=== PATIENT | female | born 1960 | race Caucasian/White ===

== ENCOUNTER → 2017-08-16 | Outpatient (CLI) | payer BC ==
--- NOTE | 2017-08-16 16:20 | CT ---
EXAMINATION TYPE: CT ChestAbdPelvis w con DATE OF EXAM: 08/16/2017 COMPARISON: NONE HISTORY: Abnormal weight loss, fatigue, and upper abdominal pain/back pain. CT DLP: 404.4. mGycm. Automated Exposure Control for Dose Reduction was Utilized. CONTRAST: CT scan of the thorax, abdomen and pelvis is performed with IV Contrast, patient injected with 100 mL of Omnipaque 300. FINDINGS: LUNGS: Mild paraseptal and centrilobular emphysematous changes are seen, most pronounced within the l lisa apices. Minimal right basilar subsegmental atelectasis is present. A 3 mm pulmonary nodule seen w ithin the right upper lobe peripherally on series 4 image 15. This is solid in nature. The lungs are grossly clear, there is no concerning parenchymal mass identified. There is no pleural effusion or pn eumothorax seen. The tracheobronchial tree is patent. MEDIASTINUM: There are no greater than 1 cm hilar or mediastinal lymph nodes. No pericardial effusi on is seen. LIVER/GB: Wedge-shaped geographic area of hypoattenuation is seen within segment IVb near the fissure for the falciform ligament. Most characteristically and most commonly this relates to focal fatty in filtration. Remainder the hepatic parenchyma enhances homogeneously. No evidence of cholelithiasis. PANCREAS: No significant abnormality is seen. SPLEEN: No significant abnormality is seen. ADRENALS: There is mild symmetric thickening adrenal glands without discrete nodularity. Adrenal glan ds maintain a normal adreniform shape and therefore this likely relates to adrenal gland hyperplasia. KIDNEYS: No significant abnormality is seen. BOWEL: There is dilation of the proximal third portion of the duodenum up to 3.2 cm on series 3 image 78. This narrows in caliber on series 3 image 75 with focal stenosis on series 3 image 70 at the microsoft office instructor ssing of the SMA within the mid third portion of the duodenum. The angle of takeoff of the SMA on cor onal series 8 image 51 measures 15 degrees. Compilation of findings suggest SMA syndrome. The remainder the bowel is nondilated. Circumferential rectal wall thickening may relate to incomplet e distention and is seen on series 3 images 111 and below. No proximal dilatation to suggest obstruct ing mass. No small bowel wall thickening. LYMPH NODES: No greater than 1cm abdominal or pelvic lymph nodes are appreciated. OSSEOUS STRUCTURES: No significant abnormality is seen. IMPRESSION: 1. Combination of findings as described above in the bowel section suggestive of SMA syndrome. 2. 3 mm right upper lobe pulmonary nodule. Follow up CT chest is recommended in 6-12 months for surve illance. 3. Circumferential rectal thickening that may relate to incomplete distention. Direct visualization p erformed for further evaluation.
== END | disposition home or self-care (01) ==
LOC: RADCTMAIN 14:03
PROVIDERS: ATTEND Nurse Practitioner Family
DX: K59.8 Other specified functional intestinal disorders (principal); R91.1 Solitary pulmonary nodule; K62.89 Other specified diseases of anus and rectum; R63.4 Abnormal weight loss; R53.83 Other fatigue
CPT/HCPCS: 71260; 74177; Q9967

== ENCOUNTER → 2017-08-20 | Outpatient (CLI) | payer BC ==
--- NOTE | 2017-08-20 18:47 | XR ---
EXAMINATION TYPE: XR ankle complete RT DATE OF EXAM: 08/20/2017 COMPARISON: NONE HISTORY: Pain TECHNIQUE: 3 views FINDINGS: Ankle mortise is anatomic. I see no fracture nor dislocation. Subtalar joint is normal. The re is some calcification at the tip of the fibula consistent with old ligamentous injury. IMPRESSION: Negative right ankle exam.
--- NOTE | 2017-08-20 18:48 | XR ---
EXAMINATION TYPE: XR foot complete RT DATE OF EXAM: 08/20/2017 COMPARISON: NONE HISTORY: Foot pain TECHNIQUE: 3 views FINDINGS: There is hallux valgus. There is some soft tissue swelling at the medial aspect of the firs t MP joint. There are no erosions. Metatarsals are intact. There is mild spurring at the first MP ling nt. IMPRESSION: No acute bony abnormality. Hallux valgus.
== END | disposition home or self-care (01) ==
LOC: RADXRMAIN 18:10
PROVIDERS: ATTEND Nurse Practitioner Adult Health
DX: M20.11 Hallux valgus (acquired), right foot (principal); M25.571 Pain in right ankle and joints of right foot

== ENCOUNTER 2017-09-02 10:25 | Day surgery (SDC) | payer BC ==
[2017-08-30 09:26] VITALS: BMI 17.2
[~2017-09-02 10:25] MED LIST: LACTATED RINGERS 1,000 ML IV SCH
[2017-09-02 11:39] VITALS: TEMP 98.2
[2017-09-02] MEDS ORDERED: PROPOFOL 10 MG/ML 20 ML VIAL IV ONE (12:13)
--- NOTE | 2017-09-02 12:44 | P.PCN ---
Date of Procedure: 09/02/17 Procedure(s) Performed: Procedure: Colonoscopy and biopsy. Preoperative diagnosis: Abnormal CT. Postoperative diagnosis: 1. Diverticulosis with no evidence of acute diverticulitis, strictures, polyps or cancer. 2. No evidence of inflammatory bowel disease, biopsies obtained from the terminal ileum and randomly from the colon. Preparation: HalfLytely prep. Sedation: Was provided by anesthesia. Brief clinical history: The patient is a 57-year-old female was been experiencing abdominal and back pain as well as altered bowel function. CT of the abdomen showed thickening in the rectum and changes suggestive of SMA syndrome. The patient had no prior colonoscopy and was accordingly referred for this evaluation. The patient also reported intermittent diarrhea 1-2 times per week. Procedure: With the patient on her left lateral decubitus position and after informed consent and adequate sedation, the perianal area was inspected and it did not show any fissures or fistulas. There were no masses felt on digital rectal examination. The Olympus CFQ 160L video colonoscope was then inserted in the rectum in the usual fashion and advanced to the cecum. I intubated the ileocecal valve and examined the terminal ileum. Terminal ileum and colon appeared healthy with no edema, erythema, friability, ulceration, exudation or spontaneous bleeding. No polyps or tumors were seen. Particular attention was made to the rectum and no abnormalities were noted to correspond to the CT findings. Multiple diverticular orifices were seen on the right side with no evidence of acute diverticulitis or strictures. I obtained biopsies from the terminal ileum and randomly from the colon, then I retroflexed the endoscope in the rectum before the endoscope was withdrawn. The patient tolerated the procedure well. Plan: The patient was reassured. Will await biopsy results and make further recommendations based on her course and biopsy results.
[2017-09-02 13:18] VITALS: BP 134/91; PULSE 75; RESP 18
== END 2017-09-02 13:28 | disposition home or self-care (01) ==
LOC: ORWHC2ENDO 10:25
DX: K57.30 Diverticulosis of large intestine without perforation or abscess without bleeding (principal); R93.3 Abnormal findings on diagnostic imaging of other parts of digestive tract; R63.4 Abnormal weight loss; Z68.1 Body mass index [BMI] 19.9 or less, adult; R53.83 Other fatigue
CPT/HCPCS: 88305; 45380; J2704

== ENCOUNTER 2017-10-28 18:51 | Emergency (ER) | payer BC ==
[2017-10-28 19:29] VITALS: BP 138/77; PULSE 78; RESP 16; TEMP 98
--- NOTE | 2017-10-28 19:44 | ED ---
General Adult HPI - General Chief complaint: Extremity Injury, Lower Stated complaint: fall/knee injury Time Seen by Provider: 10/28/17 19:38 Source: patient, RN notes reviewed Mode of arrival: wheelchair Limitations: no limitations - History of Present Illness Initial comments: Patient 57-year-old female presents to the emergency room today with a chief complaint of a injury to the left knee that occurred 5 days ago. Patient states that she tripped over a bedpost and was trying a flat on her knees and twisted. She states she's got some bruising to the back of the left knee. She is tender to the posterior and anterior aspect of the knee. She missed been able to ambulate but has to walk very carefully. She states she has pain with movement flexion and extension. Patient denies any other injuries or complaints. States she's not on any blood thinner. Patient denies any recent fever, chills, shortness of breath, chest pain, back pain, abdominal pain, nausea or vomiting, headaches or visual changes, or any other complaints. - Related Data Home Medications Medication Instructions Recorded Confirmed No Known Home Medications [No 08/30/17 09/02/17 Known Home Medications] Allergies Allergy/AdvReac Type Severity Reaction Status Date / Time No Known Allergies Allergy Verified 10/28/17 19:28 Review of Systems ROS Statement: Those systems with pertinent positive or pertinent negative responses have been documented in the HPI. ROS Other: All systems not noted in ROS Statement are negative. Past Medical History Past Medical History: Hearing Disorder / Deafness Additional Past Medical History / Comment(s): STATES HAVING SHORTNESS OF BREATH , WT LOSS OF 40 # OVER LAST 7 MONTHS, FATIGUE., STATES SHE HAS APPT AT [facility]. , PARTIALLY DEAF RIGHT EAR., STATES 3 LOOSE TEETH . History of Any Multi-Drug Resistant Organisms: None Reported Additional Past Surgical History / Comment(s): D & C Past Anesthesia/Blood Transfusion Reactions: No Reported Reaction Past Psychological History: No Psychological Hx Reported Smoking Status: Former smoker Past Alcohol Use History: Heavy Past Drug Use History: Marijuana - Past Family History Mother Family Medical History: Blood Disorder Additional Family Medical History / Comment(s): PROTEIN C - DEFICIENCY. Daughter(s) Family Medical History: Blood Disorder Additional Family Medical History / Comment(s): UNKNOWN NAME OF BLOOD DISORDER. General Exam - General Exam Comments Initial Comments: General: The patient is awake and alert, in no distress, and does not appear acutely ill. Neck: The neck is supple, there is no tenderness or JVD. Cardiovascular: There is a regular rate and rhythm. No murmur, rub or gallop is appreciated. Respiratory: Lungs are clear to auscultation, respirations are non-labored, breath sounds are equal. No wheezes, stridor, rales, or rhonchi. Musculoskeletal: Patient does have some bruising to the posterior and anterior aspects of the left knee. Minimal swelling. Tender to palpation both popliteal and superior and inferior anterior aspects of the left knee. Patient shows limited range of motion with flexion and extension due to the pain. Her sensations are intact. Pulses 2+. Neurological: A&O x 3. CN II-XII intact, There are no obvious motor or sensory deficits. Coordination appears grossly intact. Speech is normal. Skin: Skin is warm and dry and no rashes or lesions are noted. Psychiatric: Normal mood and affect. Limitations: no limitations Course Vital Signs 10/28/17 19:24 Temperature 98 F Pulse Rate 78 Respiratory 16 Rate Blood Pressure 138/77 O2 Sat by Pulse 98 Oximetry Medical Decision Making - Medical Decision Making X-ray reviewed does show patellar fracture. Results were discussed with the patient. Patient placed in knee immobilizer. She states she has crutches and a walker at home. She is advised nonweightbearing use in the was when up and moving around. Advised follow-up with orthopedics tomorrow. Advised to ice elevate the affected area. Advised return to emergency room for any other concerns. Disposition Clinical Impression: Patellar fracture Disposition: HOME SELF-CARE Condition: Good Instructions: Patellar Fracture (ED) Additional Instructions: Please use knee immobilizer up and moving around. Please use crutches with nonweightbearing. Please follow-up with orthopedics tomorrow. Please continue to ice elevate the affected area. Do not sleep with knee immobilizer on. Please return for any other concerns. Referrals: Jaci Watkins MD [Primary Care Provider] - 1-2 days Nagi Tariq MD [STAFF PHYSICIAN] - 1-2 days Time of Disposition: 20:17
--- NOTE | 2017-10-28 20:10 | XR ---
EXAMINATION TYPE: XR knee complete LT DATE OF EXAM: 10/28/2017 COMPARISON: NONE HISTORY: Knee pain TECHNIQUE: 3 views FINDINGS: There is a nondisplaced transverse fracture through the patella. There is small knee joint effusion. There is no dislocation. Joint spaces are fairly normal. IMPRESSION: Acute fracture of the patella. Joint effusion.
== END 2017-10-28 20:43 | disposition home or self-care (01) ==
LOC: EC 18:51
DX: S82.002A Unspecified fracture of left patella, initial encounter for closed fracture (principal); H91.90 Unspecified hearing loss, unspecified ear; Z87.891 Personal history of nicotine dependence; W01.0XXA Fall on same level from slipping, tripping and stumbling without subsequent striking against object, initial encounter; X50.1XXA Overexertion from prolonged static or awkward postures, initial encounter
CPT/HCPCS: 73562; 99283; L1830 ×2

== ENCOUNTER 2021-10-08 10:18 | Inpatient (IN) | payer BC, OTHER ==
[2021-10-08] MEDS ORDERED: HEPARIN SODIUM 1,000 UN/ML (10ML VL) ONE (10:57)
[2021-10-08] MEDS ORDERED: fentaNYL (PF) 50 MCG/ML 2 ML AMP ONE (10:57)
[2021-10-08] MEDS ORDERED: VERAPAMIL 2.5 MG/ML 2 ML AMP ONE (10:57)
[2021-10-08] MEDS ORDERED: LIDOCAINE 1% INJ 10MG/ML (20 ML MDV) ONE (10:57)
[2021-10-08] MEDS ORDERED: LIDOCAINE 1% INJ 10MG/ML (20 ML MDV) SQ ONE ×3 (11:13→11:17)
[2021-10-08] MEDS ORDERED: MIDAZOLAM 2 MG/2 ML VIAL IV ONE ×2 (11:13→11:14)
[2021-10-08] MEDS ORDERED: fentaNYL (PF) 50 MCG/ML 2 ML AMP IV ONE ×2 (11:13→11:14)
[2021-10-08] MEDS ORDERED: hydrALAZINE HCL 20 MG/ML 1 ML VIAL ONE (11:16)
[2021-10-08] MEDS ORDERED: hydrALAZINE HCL 20 MG/ML 1 ML VIAL IV ONE ×2 (11:16→11:17)
[2021-10-08] MEDS ORDERED: VERAPAMIL SYRINGE (5 MG/10 ML) IV ONE ×2 (11:19→11:20)
[2021-10-08] MEDS ORDERED: SODIUM CHLORIDE 0.9% 1,000 ML IV ONE ×2 (11:25)
[2021-10-08] MEDS ORDERED: HEPARIN SODIUM 1,000 UN/ML (10ML VL) IV ONE ×2 (11:30→11:33)
[2021-10-08] MEDS ORDERED: IOPAMIDOL-370 125ML BTL INJ ONE ×2 (11:43)
--- NOTE | 2021-10-08 12:09 | P.CARDCATH ---
Description of Procedure: PROCEDURES PERFORMED: Left heart catheterization, left ventriculogram, bilateral coronary angiography INDICATION: Non-STEMI HISTORY: Patient is a pleasant 61-year-old female who presented with chest pain and was found to have non-STEMI with biphasic T waves in the anterior septal leads concerning for Wellens sign with ongoing chest pain. She has had a cough for the past month and has had dyspnea on exertion however chest pain has only been the last week off and on and more recently constant for the last day. Given persistent chest pain and concern of obstructive disease patient was transferred to [facility] for left heart catheterization with possible PCI. CONSENT:I have discussed the risks, benefits and alternative therapies for the above-mentioned procedure and for both sedation/analgesia as well as necessary blood product administration, if indicated, as they pertain to this patient. The patient has indicated understanding and acceptance of the risks and procedures discussed. PROCEDURE: After the risks, benefits and alternatives of the above mentioned procedure explained in detail with the patient, informed consent was obtained. Patient was taken to the catheterization lab and prepped and draped in usual fashion. 1% lidocaine was used to anesthetize the right radial artery. Using ultrasound guidance the right radial artery was able to be cannulated however unable to pass a wire despite 3 attempts. Therefore given continued good radial pulse the ulnar area was anesthetized and a 6-Danish sheath was placed in the right ulnar artery using modified Seldinger technique. Left coronary angiography was performed with a 5-Danish JL 3.5 catheter and right coronary angiography was performed with a 5-Danish JR5 catheter in various views. A 5- Danish FR5 catheter was inserted into the left ventricle and pressure measurements were obtained. Left ventriculogram was performed in the BULLARD projection with power injection. The right ulnar sheath was removed and a TR band was placed with hemostasis achieved. The patient tolerated the procedure well. Patient was transported back to the post catheterization holding area in stable condition. Conscious Sedation: Patient was monitored under the direct supervision of vision of myself for conscious sedation using Versed and fentanyl for a total duration of [] minutes HEMODYNAMICS: Aorta: 92/70 LV: 88/2, LVEDP 10 SELECTIVE CORONARY ARTERIOGRAPHY: LEFT MAIN: The left main is a large caliber vessel which bifurcates into the LAD and circumflex. There is no significant stenosis. LEFT ANTERIOR DESCENDING CORONARY ARTERY: LAD is a large caliber vessel which wraps around to the apex. There is a proximal LAD 30% stenosis. LEFT CIRCUMFLEX CORONARY ARTERY: Left circumflex is a moderate caliber vessel without significant stenosis. RIGHT CORONARY ARTERY: The right coronary artery is a large caliber vessel which gives off a PDA and PLV branch and is the dominant vessel. There is a mid 30% stenosis and otherwise no significant disease. FINAL IMPRESSION: 1. Mild CAD as described above 2. Normal left sided filling pressures 3. Normal ejection fraction 55% with predominantly mid inferior hypokinesis and very mild mid anterior hypokinesis. Mild wall motion abnormalities may represent Takotsubo's cardiomyopathy versus mild myocarditis however may be better evaluated on echo. PLAN: 1. Aggressive risk factor modification per most recent ACC/AHA guidelines. 2. Continue beta akua and check 2-D echo.
[2021-10-08] MEDS ORDERED: RX INFO: IV CONTRAST WAS GIVEN 1 EACH MISC MISCELLANE PRN (12:10)
[2021-10-08] MEDS ORDERED: SODIUM CHLORIDE 0.9% 500 ML 500 ML IV ONE (14:49)
[2021-10-08] MEDS: METOPROLOL SUCCINATE (ER) 25 MG TAB.ER.24H PO SCH (15:46)
--- NOTE | 2021-10-08 19:04 | P.HPIM ---
History of Present Illness H&P Date: 10/08/21 Chief Complaint: Chest pain/NSTEMI 61-year-old female who presented with chest pain and was found to have non-STEMI with biphasic T waves in the anterior septal leads concerning for Wellens sign with ongoing chest pain. She has had a cough for the past month and has had dys pnea on exertion however chest pain has only been the last week off and on and more recently constant for the last day. Given persistent chest pain and concern of obstructive disease patient was transferred to [facility] for left heart catheterization with possible PCI. Patient is transferred to our facility for cardiac catheterization and further intervention Review of Systems Inserted review of systems Past Medical History Past Medical History: Hearing Disorder / Deafness Additional Past Medical History / Comment(s): STATES WT LOSS OF 40 # OVER LAST 7 MONTHS, POOR APPETITE , FATIGUE., NODULE ON LUNG. , PARTIALLY DEAF RIGHT EAR., STATES 3 LOOSE TEETH ., STATES HX OF FALL & INJURED LEFT KNEE AND RIGHT WRIST (10/2017)-STATES LIMPING, & CANNOT USE RIGHT WRIST. History of Any Multi-Drug Resistant Organisms: None Reported Additional Past Surgical History / Comment(s): D & C Past Anesthesia/Blood Transfusion Reactions: No Reported Reaction Past Psychological History: Anxiety, Depression Additional Psychological History / Comment(s): STATES RECENT ANXIETY & DEPRESSION D/T HEALTH PROBLEMS. Past Alcohol Use History: Heavy Additional Past Alcohol Use History / Comment(s): STATES HX OF HEAVY ALCOHOL USE- QUIT [id number]. STARTED SMOKING AGE 11, QUIT AGE 41., SMOKED 1 PPD. Past Drug Use History: Marijuana Additional Drug Use History / Comment(s): STATES OCCASIONAL MARIJUANA USE TO INCREASE APPETITE. - Past Family History Mother Family Medical History: Blood Disorder Additional Family Medical History / Comment(s): PROTEIN C - DEFICIENCY. Daughter(s) Family Medical History: Blood Disorder Additional Family Medical History / Comment(s): UNKNOWN NAME OF BLOOD DISORDER. Medications and Allergies Home Medications Medication Instructions Recorded Confirmed Type No Known Home Medications 10/08/21 10/08/21 History Allergies Allergy/AdvReac Type Severity Reaction Status Date / Time No Known Allergies Allergy Verified 10/08/21 14:44 Physical Exam Vitals: Vital Signs Pulse Resp BP Pulse Ox 10/08/21 15:41 81/53 10/08/21 15:30 75/51 10/08/21 14:40 81/49 10/08/21 14:37 84 16 76/45 98 10/08/21 12:48 98 116/57 97 10/08/21 12:37 88 18 84/55 96 10/08/21 12:25 83 18 156/69 100 Intake and Output 10/08/21 10/08/21 10/08/21 06:59 14:59 22:59 Intake Total 600 Balance 600 Intake: IV 600 Other: Weight 41 kg - Constitutional General appearance: Present: average body habitus, cooperative, no acute distress - EENT Eyes: Present: anicteric sclerae, EOMI, PERRLA, normal appearance ENT: Present: hearing grossly normal, normal oropharynx Ears: bilateral: normal - Neck Neck: Present: normal ROM. Absent: lymphadenopathy, rigidity, thyromegaly Carotids: negative: bruit present Thyroid: bilateral: normal size, negative: enlarged, nodule - Respiratory Respiratory: bilateral: CTA, negative: rales, rhonchi, wheezing - Cardiovascular Rhythm: regular Heart sounds: normal: S1, S2 Abnormal Heart Sounds: Absent: systolic murmur, diastolic murmur - Gastrointestinal General gastrointestinal: Present: normal bowel sounds, soft. Absent: distended, organomegaly, tenderness - Genitourinary Genitourinary Comment(s): deferred - Integumentary Integumentary: Present: normal turgor. Absent: jaundiced, rash, ulcer - Neurologic Neurologic: Present: CNII-XII intact. Absent: focal deficits - Musculoskeletal Musculoskeletal: Present: gait normal, strength equal bilaterally - Psychiatric Psychiatric: Present: A&O x's 3, appropriate affect, intact judgment & insight Assessment and Plan Assessment: 1. Chest pain/NSTEMI - Patient is currently on IV heparin; cardiology to evaluate for left heart catheterization - Patient remains on aspirin, Lipitor 40 mg daily at bedtime and metoprolol 12.5 mg daily - 2-D echo is ordered and pending 2. Hearing disorder/deafness; at baseline 3. Hypotension; iatrogenic; patient not on an antihypertensive therapy at home; has been placed on metoprolol; patient remains asymptomatic; we'll plan to discontinue metoprolol if patient reports of any dizziness or lightheadedness DVT prophylaxis; SCDs CODE STATUS; full code
[2021-10-08] MEDS: ATORVASTATIN 40 MG TAB PO SCH (21:09)
[2021-10-09 00:42] LABS: Glucose,Whole Blood 117 mg/dL (75-99)
[2021-10-09] MEDS: NITROGLYCERIN SL TABS 0.4 MG TAB SUBLINGUAL ONE ×2 (00:55→01:00)
[2021-10-09] MEDS ORDERED: MORPHINE SULFATE 4 MG/ML SYRINGE IVP PRN (01:01)
[2021-10-09] MEDS ORDERED: ONDANSETRON 4 MG/2 ML VIAL IVP PRN (01:02)
[2021-10-09] MEDS ORDERED: hydrALAZINE HCL 20 MG/ML 1 ML VIAL IVP PRN (01:03)
[2021-10-09] MEDS ORDERED: MORPHINE SULFATE 4 MG/ML SYRINGE ONE (01:03)
[2021-10-09 01:41] LABS: HCT 40.1 % (34.0-46.0); HGB 13.3 gm/dL (11.4-16.0); MCH 34.5 pg (25.0-35.0); MCHC 33.2 g/dL (31.0-37.0); MCV 103.9 fL (80.0-100.0); Macrocytosis Slight; Mean Platelet Volume 7.7; Platelet Count 295 k/uL (150-450); RBC 3.86 m/uL (3.80-5.40); RDW 14.9 % (11.5-15.5); WBC 9.9 k/uL (3.8-10.6)
[2021-10-09 02:04] LABS: African American GFR (CKD) >90 (>60 ml/min/1.73 sqM); Anion Gap 6 mmol/L; Blood Urea Nitrogen 11 mg/dL (7-17); Calcium 8.3 mg/dL (8.4-10.2); Carbon Dioxide 19 mmol/L (22-30); Chloride 104 mmol/L (98-107); Glucose 124 mg/dL (74-99); Magnesium 1.5 mg/dL (1.6-2.3); Non-African American GFR(CKD) >90 (>60 ml/min/1.73 sqM); Potassium 3.6 mmol/L (3.5-5.1); Sodium 129 mmol/L (137-145)
[2021-10-09] MEDS ORDERED: LORazepam 2 MG/ML INJ IV PRN ×3 (02:32)
[2021-10-09] MEDS ORDERED: Magnesium Replacement Protocol 1 EACH MISC MISCELLANE PRN (02:33)
[2021-10-09] MEDS ORDERED: Potassium Replacement Protocol 1 EACH MISC MISCELLANE PRN (02:33)
[2021-10-09] MEDS: MAGNESIUM SULFATE-D5W PMX 1 GM in DEXTROSE/WATER 1 100ML.BAG IVPB SCH ×2 (02:43→03:55)
[2021-10-09] MEDS ORDERED: THIAMINE 100 MG/ML 2 ML VIAL IM ONE (02:45)
[2021-10-09] MEDS ORDERED: POTASSIUM CHLORIDE ER 20 MEQ TAB.ER PO SCH (03:00)
[2021-10-09] MEDS ORDERED: amLODIPine 10 MG TAB PO SCH (09:00)
[2021-10-09] MEDS: ASPIRIN 81 MG PO SCH (09:02)
[2021-10-09] MEDS: METOPROLOL SUCCINATE (ER) 25 MG TAB.ER.24H PO SCH (09:02)
[2021-10-09] MEDS: MULTIVITAMINS, THERA 1 EACH TAB PO SCH (09:02)
[2021-10-09] MEDS ORDERED: SODIUM CHLORIDE 0.9% 500 ML 250 ML IV ONE (09:45)
[2021-10-09 09:49] LABS: HCT 42.2 % (34.0-46.0); HGB 13.7 gm/dL (11.4-16.0); MCH 34.9 pg (25.0-35.0); MCHC 32.4 g/dL (31.0-37.0); MCV 107.6 fL (80.0-100.0); Macrocytosis Marked; Mean Platelet Volume 8.2; Platelet Count 251 k/uL (150-450); RBC 3.92 m/uL (3.80-5.40); RDW 15.1 % (11.5-15.5); WBC 8.3 k/uL (3.8-10.6)
--- NOTE | 2021-10-09 12:27 | XR ---
EXAMINATION TYPE: XR chest 2V DATE OF EXAM: 10/09/2021 COMPARISON: NONE TECHNIQUE: PA and lateral views submitted. HISTORY: Hypoxia FINDINGS: Hyperinflation with by lateral small pleural effusions. No overt failure. Heart size normal. No pneum othorax. Diffuse osteopenia and arthropathy of the shoulders and degenerative changes spine. IMPRESSION: 1. COPD with small bilateral pleural effusions.
[2021-10-09] MEDS: SODIUM CHLORIDE 0.9% 1,000 ML IV SCH (12:59)
--- NOTE | 2021-10-09 15:01 | P.PN ---
Subjective Progress Note Date: 10/09/21 61-year-old female who presented with chest pain and was found to have non-STEMI with biphasic T waves in the anterior septal leads concerning for Wellens sign with ongoing chest pain. She has had a cough for the past month and has had dyspnea on exertion however chest pain has only been the last week off and on and more recently constant for the last day. Given persistent chest pain and concern of obstructive disease patient was transferred to [facility] [place] for left heart catheterization with possible PCI. Patient is transferred to our facility for cardiac catheterization and further intervention 10/09/2021 Patient evaluated today status post catheterization yesterday. Patient was experiencing some numbness to her right hand as well as she states her nailbeds were white. She does have a positive plus radial pulse. There is extensive bruising of the right forearm. Right radial TR band was reapplied an pt states numbness is improved and there is <3 sec cap refill. Cardiac catheterization revealed mild coronary artery disease with no stenting. There was question for takutsubo cardiomyopathy vs mild myocarditis echocardiogram is still pending. Mag 1.5, was replaced, sodium level 129. Blood pressures in the low side at 85/53, she did receive a liter bolus earlier morning and she does state that she is mildly dizzy when standing. Patient has not seen primary care provider in 10 years. She was a one pack per day smoker from age of [age], currently smokes marijuana out of a pipe 3 times per day. State she's had increasing shortness of breath at home. Chest x-ray today shows COPD with small bilateral pleural effusions. There was mention in history about nodule on lung, patient denies knowing about this, states that she has had gradual weight loss over the past 10 years, states at one point when it started she was worked up for parasites at [facility] but was a negative work up. Reports decreased appetite at home as well. Review of Systems Constitutional: Denied any fatigue denied any fever. Cardio vascular: denied any chest pain, palpitations Gastrointestinal: denied any nausea, vomiting, diarrhea, reports decreased appetite Pulmonary: Denies cough, reports shortness of breath at rest and with exertion Neurologic denied any new focal deficits All inpatient medications were reviewed and appropriate changes in these medications as dictated in the interval history and assessment and plan. PHYSICAL EXAMINATION: GENERAL: The patient is alert and oriented x3, not in any acute distress. Well developed, well nourished. HEENT: Pupils are round and equally reacting to light. EOMI. No scleral icterus. No conjunctival pallor. Normocephalic, atraumatic. No pharyngeal erythema. No thyromegaly. CARDIOVASCULAR: S1 and S2 present. No murmurs, rubs, or gallops. PULMONARY: Chest is clear to auscultation, no wheezing or crackles. ABDOMEN: Soft, nontender, nondistended, normoactive bowel sounds. No palpable organomegaly. MUSCULOSKELETAL: No joint swelling or deformity. EXTREMITIES: No cyanosis, clubbing, or pedal edema. NEUROLOGICAL: Gross neurological examination did not reveal any focal deficits. SKIN: No rashes. Assessment and plan Assessment Chest pain/non-ST elevation myocardial infarction, catheterization reveals mild coronary artery disease recommended for medical management Hypotension, started on new blood pressure medications with poor oral intake, received a 1 liter bolus today, monitor closely Hyponatremia due to poor oral intake, IV fluids started and will repeat level tomorrow Hypomagnesemia probably due to poor oral intake, repeat tomorrow Probably COPD with a 30 pack year history, complaining of shortness of breath at home with history of smoking and requiring oxygen support Hearing disorder/deafness at baseline Poor dentition Prior history of daily tobacco use Current daily mairjuana use History of chronic alcohol abuse, drinks 1 vodka every other day currently. History of weight loss GI Prophylaxis DVT Prophylaxis Full Code Plan Continue IV fluids Monitor blood pressure Orthostatic blood pressures Qshift Echo pending Start symbicort wean oxygen as tolerated Repeat labs in AM Consult international freight forwarder The impression and plan of care has been dictated by Zelda Santacruz, Nurse Practitioner as directed. Dr. Luzmaria MD I have performed a history and physical examination and medical decision making of this patient, discussed the same with the dictator, and agree with the dictators assessment and plan as written, documented as a scribe. Based on total visit time, I have performed more than 50% of this visit. Objective - Vital Signs Vital signs: Vital Signs Temp 98.4 F 10/09/21 08:00 Pulse 98 10/09/21 08:00 Resp 16 10/09/21 08:00 BP 95/50 10/09/21 10:00 Pulse Ox 100 10/09/21 08:00 Intake & Output 10/08/21 10/09/2122 18:59 06:59 18:59 Intake Total 600 320 368 Output Total 200 Balance 400 320 368 Weight 41.012 kg Intake: IV 600 Intake, IV Titration 200 250 Amount Magnesium Sulfate-D5w Pmx 200 1 gm In Dextrose/Water 1 100ml.bag @ 100 mls/hr IVPB Q1H [facility] Rx#: [id number] Sodium Chloride 0.9% 1, 250 000 ml @ 0 mls/hr IV .STK -MED ONE Rx#:[id number] Oral 120 118 Output: Urine 200 Other: # Voids 3 - Labs CBC & Chem 7: 10/09/21 07:13 10/09/21 01:20 Labs: Abnormal Lab Results - Last 24 Hours (Table) 10/09/21 10/09/21 10/09/21 Range/Units 00:41 01:20 01:20 MCV 103.9 H (80.0-100.0) fL Macrocytosis Sodium (137-145) mmol/L Carbon Dioxide (22-30) mmol/L Glucose (74-99) mg/dL POC Glucose (mg/dL) 117 H (75-99) mg/dL Calcium (8.4-10.2) mg/dL Magnesium (1.6-2.3) mg/dL Troponin I 0.193 H* (0.000-0.034) ng/mL 10/09/21 10/09/21 10/09/21 Range/Units 01:20 04:08 07:13 MCV (80.0-100.0) fL Macrocytosis Sodium 129 L (137-145) mmol/L Carbon Dioxide 19 L (22-30) mmol/L Glucose 124 H (74-99) mg/dL POC Glucose (mg/dL) (75-99) mg/dL Calcium 8.3 L (8.4-10.2) mg/dL Magnesium 1.5 L (1.6-2.3) mg/dL Troponin I 0.179 H* 0.145 H* (0.000-0.034) ng/mL 10/09/21 Range/Units 07:13 MCV 107.6 H (80.0-100.0) fL Macrocytosis Marked A Sodium (137-145) mmol/L Carbon Dioxide (22-30) mmol/L Glucose (74-99) mg/dL POC Glucose (mg/dL) (75-99) mg/dL Calcium (8.4-10.2) mg/dL Magnesium (1.6-2.3) mg/dL Troponin I (0.000-0.034) ng/mL Assessment and Plan Time with Patient: Greater than 30
--- NOTE | 2021-10-09 15:09 | P.PN ---
Subjective Progress Note Date: 10/09/21 HISTORY OF PRESENT ILLNESS: Patient is s/p cardiac cath with Dr. Xiong revealing mild CAD. Patient examined this morning at the bedside. Patient denies chest pain or pressure. Denies SOB. Patient does have a hematoma noted to right arm. TR band has been reapplied. Blood pressure on the lower side this morning with a systolic in the 80-90s. PHYSICAL EXAM: VITAL SIGNS: Reviewed. GENERAL: Well-developed in no acute distress. NECK: Supple. No JVD or thyromegaly LUNGS: Respirations even and unlabored. Lungs essentially clear to auscultation bilaterally. HEART: Regular rate and rhythm. S1 and S2 heard. EXTREMITIES: Normal range of motion. No clubbing or cyanosis. Peripheral pulses intact. No lower extremity edema ASSESSMENT: Chest pain Non-STEMI, s/p cardiac cath revealing mild CAD Hypotension PLAN: Give 250cc bolus followed by IVF at 50cc/hr Hold Norvasc this morning Continue to monitor BP Obtain 2D echo Further recommendations pending patient course Nurse practitioner note has been reviewed by physician. Signing provider agrees with the documented findings, assessment, and plan of care. Objective - Vital Signs Vital signs: Vital Signs Temp 98.4 F 10/09/21 08:00 Pulse 81 10/09/21 14:00 Resp 16 10/09/21 14:00 BP 94/53 10/09/21 12:00 Pulse Ox 99 10/09/21 12:00 Intake & Output 10/08/21 10/09/21 10/09/21 18:59 06:59 18:59 Intake Total 600 320 368 Output Total 200 Balance 400 320 368 Weight 41.012 kg Intake: IV 600 Intake, IV Titration 200 250 Amount Magnesium Sulfate-D5w Pmx 200 1 gm In Dextrose/Water 1 100ml.bag @ 100 mls/hr IVPB Q1H [facility] Rx#: [id number] Sodium Chloride 0.9% 1, 250 000 ml @ 0 mls/hr IV .STK -MED ONE Rx#:[id number] Oral 120 118 Output: Urine 200 Other: # Voids 3 - Labs CBC & Chem 7: 10/09/21 07:13 10/09/21 01:20 Labs: Abnormal Lab Results - Last 24 Hours (Table) 10/09/21 10/09/21 10/09/21 Range/Units 00:41 01:20 01:20 MCV 103.9 H (80.0-100.0) fL Macrocytosis Sodium (137-145) mmol/L Carbon Dioxide (22-30) mmol/L Glucose (74-99) mg/dL POC Glucose (mg/dL) 117 H (75-99) mg/dL Calcium (8.4-10.2) mg/dL Magnesium (1.6-2.3) mg/dL Troponin I 0.193 H* (0.000-0.034) ng/mL 10/09/21 10/09/21 10/09/21 Range/Units 01:20 04:08 07:13 MCV (80.0-100.0) fL Macrocytosis Sodium 129 L (137-145) mmol/L Carbon Dioxide 19 L (22-30) mmol/L Glucose 124 H (74-99) mg/dL POC Glucose (mg/dL) (75-99) mg/dL Calcium 8.3 L (8.4-10.2) mg/dL Magnesium 1.5 L (1.6-2.3) mg/dL Troponin I 0.179 H* 0.145 H* (0.000-0.034) ng/mL 10/09/21 Range/Units 07:13 MCV 107.6 H (80.0-100.0) fL Macrocytosis Marked A Sodium (137-145) mmol/L Carbon Dioxide (22-30) mmol/L Glucose (74-99) mg/dL POC Glucose (mg/dL) (75-99) mg/dL Calcium (8.4-10.2) mg/dL Magnesium (1.6-2.3) mg/dL Troponin I (0.000-0.034) ng/mL
[2021-10-09 15:10] VITALS: BMI 15.5
[2021-10-09] MEDS: THIAMINE 100 MG TAB PO SCH (17:36)
[2021-10-09] MEDS: ATORVASTATIN 40 MG TAB PO SCH (20:16)
[2021-10-09] MEDS: SYMBICORT 80-4.5 MCG INHALER INHALATION SCH (21:27)
[2021-10-10] MEDS: SODIUM CHLORIDE 0.9% 1,000 ML IV SCH (05:52)
[2021-10-10] MEDS: THIAMINE 100 MG TAB PO SCH (06:39)
[2021-10-10] MEDS: METOPROLOL SUCCINATE (ER) 25 MG TAB.ER.24H PO SCH (08:29)
[2021-10-10] MEDS: ASPIRIN 81 MG PO SCH (08:29)
[2021-10-10] MEDS: MULTIVITAMINS, THERA 1 EACH TAB PO SCH (08:29)
[2021-10-10] MEDS: SYMBICORT 80-4.5 MCG INHALER INHALATION SCH (08:46)
[2021-10-10 09:04] LABS: African American GFR (CKD) >90 (>60 ml/min/1.73 sqM); Anion Gap 1 mmol/L; Blood Urea Nitrogen 4 mg/dL (7-17); Calcium 8.2 mg/dL (8.4-10.2); Carbon Dioxide 28 mmol/L (22-30); Chloride 105 mmol/L (98-107); Glucose 109 mg/dL (74-99); Non-African American GFR(CKD) >90 (>60 ml/min/1.73 sqM); Potassium 4.2 mmol/L (3.5-5.1); Sodium 134 mmol/L (137-145)
[2021-10-10 09:08] VITALS: RESP 20
--- NOTE | 2021-10-10 09:23 | P.PN ---
Subjective Progress Note Date: 10/10/21 PROGRESS NOTE The patient is a 61-year-old female who presented with symptoms of chest discomfort and troponin elevation. She underwent cardiac catheterization that showed no evidence of obstructive disease. She is feeling better today. She has some abdominal discomfort and nausea that are improving. Her blood pressure is under better control. Her echocardiogram showed an ejection fraction of 45-50% with apical septal hypokinesis. Her findings are suggestive of Takotsubo syndrome. She has no evidence of arrhythmia. She continues to be on Norvasc 10 mg daily, aspirin once a day, metoprolol succinate 12-1/2 mg daily, Lipitor 40 mg daily PHYSICAL EXAMINATION: Blood pressure 107/60 heart rate 76 LUNGS: Clear to auscultation HEART: Regular rate and rhythm, S1, S2. No S3. systolic murmur at the base ABDOMEN: Soft, nontender, no organomegaly EXTREMETIES: No edema, ecchymosis on the right arm with good radial pulse LAB: BUN 4, creatinine 0.58 IMPRESSION: 1. Non-STEMI with Tokotsubo syndrome 2. History of hypertension 3. Mild CAD 4. Abdominal pain PLAN: 1. Add JARVIS inhibitor 2. Increase physical activity 3. If stable probable discharged home today and follow-up as an outpatient with Dr. Xiong. Objective - Vital Signs Vital signs: Vital Signs Temp 97.9 F 10/10/21 08:00 Pulse 76 10/10/21 08:00 Resp 20 10/10/21 08:00 BP 114/73 10/10/21 08:00 Pulse Ox 100 10/10/21 08:00 Intake & Output 10/09/21 10/10/21 10/10/21 18:59 06:59 18:59 Intake Total 868 690 Balance 868 690 Weight 41.012 kg Intake: Intake, IV Titration 750 450 Amount Sodium Chloride 0.9% 1, 250 000 ml @ 0 mls/hr IV .STK -[facility] ONE Rx#:[id number] Sodium Chloride 0.9% 1, 500 000 ml @ 50 mls/hr IV . Q20H [facility] Rx#:[id number] Sodium Chloride 0.9% 500 450 ml 250 ml @ 999 mls/hr IV .Q16M ONE Rx#:[id number] Oral 118 240 Other: # Voids 3 - Labs CBC & Chem 7: 10/09/21 07:13 10/10/21 08:22 Labs: Abnormal Lab Results - Last 24 Hours (Table) 10/09/21 10/10/21 Range/Units 07:13 08:22 MCV 107.6 H (80.0-100.0) fL Macrocytosis Marked A Sodium 134 L (137-145) mmol/L BUN 4 L (7-17) mg/dL Glucose 109 H (74-99) mg/dL Calcium 8.2 L (8.4-10.2) mg/dL
[2021-10-10 11:55] VITALS: TEMP 98.1
--- NOTE | 2021-10-10 13:01 | ECHOF ---
Referral Reason:mi MEASUREMENTS -------- HEIGHT: 162.6 cm WEIGHT: 40.8 kg BP: 98/50 RVIDd: 1.9 cm (< 3.3) IVSd: 0.8 cm (0.6 - 1.1) LVIDd: 3.1 cm (3.9 - 5.3) LVPWd: 1.0 cm (0.6 - 1.1) IVSs: 1.4 cm LVIDs: 2.1 cm LVPWs: 1.3 cm LA Diam: 2.8 cm (2.7 - 3.8) Ao Diam: 2.7 cm (2.0 - 3.7) AV Cusp: 1.7 cm (1.5 - 2.6) MV EXCURSION: 17.310 mm (> 18.000) MV EF SLOPE: 118 mm/s (70 - 150) EPSS: 0.2 cm MV E Reyes: 0.67 m/s MV DecT: 193 ms MV A Reyes: 0.84 m/s MV E/A Ratio: 0.80 FINDINGS -------- Sinus rhythm. This was a technically good study. The left ventricular size is normal. Left ventricular wall thickness is normal. Overall left vent ricular systolic function is mildly impaired with, an EF between 45 - 50 %. Apical anterior LV wall motion is hypokinetic. Apical septum LV wall motion is hypokinetic. The right ventricle is normal in size. The left atrium is normal in size. The right atrium is normal in size. Interatrial and interventricular septum intact. The aortic valve is trileaflet and appears structurally normal. The mitral valve is normal. The tricuspid valve appears structurally normal. Unable to estimate RVSP due to inadequate TR jet s pectral doppler profile. The pulmonic valve is normal. The aortic root size is normal. Normal inferior vena cava with normal inspiratory collapse consistent with estimated right atrial pre ssure of 5 mmHg. There is no pericardial effusion. CONCLUSIONS -------- 1. The left ventricular size is normal. 2. Left ventricular wall thickness is normal. 3. Overall left ventricular systolic function is mildly impaired with, an EF between 45 - 50 %. 4. Apical anterior LV wall motion is hypokinetic. 5. Apical septum LV wall motion is hypokinetic. 6. There is no pericardial effusion. KILN REMOVER: Jacqueline Diaz RDCS
[2021-10-10] MEDS ORDERED: SODIUM CHLORIDE 0.65% NASAL SPRAY 44 ML BTL NASAL PRN (13:53)
[2021-10-10 13:57] VITALS: BP 122/63; PULSE 75
[2021-10-11] MEDS ORDERED: METOPROLOL SUCCINATE (ER) 25 MG TAB.ER.24H PO SCH (09:00)
--- NOTE | 2021-10-11 22:02 | P.DS ---
Providers Date of admission: 10/08/21 10:24 Attending physician: Chelsea Lobato MD [facility] Course: Final Diagnosis Chest pain/non-ST elevation myocardial infarction, catheterization reveals mild coronary artery disease recommended for medical management Hypotension, started on new blood pressure medications with poor oral intake, still on the softer side, cardiology added lisinopril today Hyponatremia due to poor oral intake, IV fluids started, sodium improved today Hypomagnesemia probably due to poor oral intake, improved with supplementation Probably COPD with a 30 pack year history, complaining of shortness of breath at home with history of smoking and requiring oxygen support Hearing disorder/deafness at baseline Poor dentition Prior history of daily tobacco use Current daily mairjuana use History of chronic alcohol abuse, drinks 1 vodka every other day currently. History of weight loss Discharge Disposition Patient stable for discharge to follow up with cardiology. Needs to establish care with primary provider, and follow up with a active directory specialist. Hospital Course 61-year-old female who presented with chest pain and was found to have non-STEMI with biphasic T waves in the anterior septal leads concerning for Wellens sign with ongoing chest pain. She has had a cough for the past month and has had dyspnea on exertion however chest pain has only been the last week off and on and more recently constant for the last day. Given persistent chest pain and concern of obstructive disease patient was transferred to [facility] for left heart catheterization with possible PCI. Cardiac catheterization revealed mild coronary artery disease with no stenting. There was question for takutsubo cardiomyopathy vs mild myocarditis. Echocardiogram shows an EF of 45 to 50%, with LV wall motion hypokinetic, apical septum is hypokinetic, no pericardial effusion. Patient has not seen primary care provider in 10 years. She was a one pack per day smoker from age of [age], currently smokes marijuana out of a pipe 3 times per day. Also reports history of chronic alcohol use now drinks 1 mixed vodka drink every other day. State she's had increasing shortness of breath at home. Chest x-ray shows COPD with small bilateral pleural effusions. There was mention in history about nodule on lung, patient denies knowing about this, states that she has had gradual weight loss over the past 10 years, states at one point when it started she was worked up for parasites at [facility] but was a negative work up. Reports decreased appetite at home as well. Patient was evaluated by rn chemical dependency who recommended ensure plus three times a day. Labs on admission show sodium 129, WBC 9.9, glucose in the 100s, Magnesium 1.5, troponin elevation at 0.193, 0.179, 0.145. 10/10/2021 Patient evaluated today resting bed. Currently denies any chest pain, chest pressure or palpitations. States shortness of breath has improved. Counseled on smoking cessation. Orthostatics yesterday were negative. Patient had a home oxygen evaluation prior to discharge and passed with 99% on room air, discharge on symbicort inhaler and will need to follow up with pulmonary outpatient. Cardiology possibly clearing patient for discharge later on today. Patient did have some leaking from the right radial puncture site yesteday in which her hand was going numb and had the TR band put back on, today right wrist ecchymotic however soft now at the radial site with positive pulse. No further complaints of hand numbness. She also experience some hypotension yesterday and got a 1 liter fluid bolus, she was able to tolerate oral intake later on in the day and blood pressures improved. Vital signs today blood pressure 122/63 with negative orthostatics again today. Lungs are clear, S1 S2 auscultated focal neurological exam is negative. Discharge medications include aspirin, atorvastatin, toprol, lisinopril. Please see medication reconciliation for a list of current medications. Thank you for allowing us to participate in the care of this patient. The impression and plan of care has been dictated by Zelda Santacruz, Nurse Practitioner as directed. Dr. Luzmaria MD I have performed a history and physical examination and medical decision making of this patient, discussed the same with the dictator, and agree with the dictators assessment and plan as written, documented as a scribe. Based on total visit time, I have performed more than 50% of this visit. Patient Condition at Discharge: Fair Plan - Discharge Summary Discharge Rx Participant: No New Discharge Prescriptions: New Atorvastatin [Lipitor] 40 mg PO HS #30 tab Albuterol Inhaler [Ventolin Hfa Inhaler] 1 puff INHALATION RT-QID PRN #8 gm PRN Reason: Shortness Of Breath Thiamine [Vitamin B-1] 100 mg PO BID-W/MEALS tab Aspirin 81 mg PO DAILY #30 tab Multivitamins, Thera [Multivitamin (formulary)] 1 each PO DAILY tab Famotidine [Pepcid] 20 mg PO DAILY #30 tablet Budesonide/Formoterol Fumarate [Symbicort 80-4.5 Mcg Inhaler] 1 puff INHALATION BID #1 each Metoprolol Succinate (ER) [Toprol XL] 25 mg PO DAILY #30 tab lisinopriL [Zestril] 2.5 mg PO DAILY #30 tab Discharge Medication List Albuterol Inhaler [Ventolin Hfa Inhaler] 1 puff INHALATION RT-QID PRN #8 gm 10/10/21 [Rx] Aspirin 81 mg PO DAILY #30 tab 10/10/21 [Rx] Atorvastatin [Lipitor] 40 mg PO HS #30 tab 10/10/21 [Rx] Budesonide/Formoterol Fumarate [Symbicort 80-4.5 Mcg Inhaler] 1 puff INHALATION BID #1 each 10/10/21 [Rx] Famotidine [Pepcid] 20 mg PO DAILY #30 tablet 10/10/21 [Rx] Metoprolol Succinate (ER) [Toprol XL] 25 mg PO DAILY #30 tab 10/10/21 [Rx] Multivitamins, Thera [Multivitamin (formulary)] 1 each PO DAILY tab 10/10/21 [Rx] Thiamine [Vitamin B-1] 100 mg PO BID-W/MEALS tab 10/10/21 [Rx] lisinopriL [Zestril] 2.5 mg PO DAILY #30 tab 10/10/21 [Rx] Follow up Appointment(s)/Referral(s): Zoya Mccarty MD [STAFF PHYSICIAN] - 3 Days (New referral for primary care ) Tony Xiong DO [STAFF PHYSICIAN] - 1 Week Pasha Devlin MD [STAFF PHYSICIAN] - 1 Week Ambulatory/Diagnostic Orders: Basic Metabolic Panel [LAB.AMB] Time Frame: 3 Days, Location: None Selected Patient Instructions/Handouts: *Surgery [facility] - After Heart Catheterization - Galvanizer Instructions Activity/Diet/Wound Care/Special Instructions: Patient needs home oxygen test prior to discharge Discharge Disposition: HOME WITH HOME HEALTH SERVICES
== END 2021-10-10 15:09 | disposition home health service (06) | DRG 287 ==
LOC: 3SCARD 10:24
PROVIDERS: ADMIT Internal Medicine; ATTEND Internal Medicine
PROC: B2111ZZ Fluoroscopy of Multiple Coronary Arteries using Low Osmolar Contrast (ICD-10-PCS; 2021-10-08)
PROC: B2151ZZ Fluoroscopy of Left Heart using Low Osmolar Contrast (ICD-10-PCS; 2021-10-08)
PROC: 4A023N7 Measurement of Cardiac Sampling and Pressure, Left Heart, Percutaneous Approach (ICD-10-PCS; principal; 2021-10-08 10:51)
DX: I51.81 Takotsubo syndrome (principal); E87.1 Hypo-osmolality and hyponatremia; J90 Pleural effusion, not elsewhere classified; I25.119 Atherosclerotic heart disease of native coronary artery with unspecified angina pectoris; Z71.6 Tobacco abuse counseling; F17.210 Nicotine dependence, cigarettes, uncomplicated; F32.A Depression, unspecified; F41.9 Anxiety disorder, unspecified; I95.89 Other hypotension; R10.9 Unspecified abdominal pain; K08.89 Other specified disorders of teeth and supporting structures; H91.91 Unspecified hearing loss, right ear; I10 Essential (primary) hypertension; E83.42 Hypomagnesemia; J44.9 Chronic obstructive pulmonary disease, unspecified; S50.11XA Contusion of right forearm, initial encounter; Z79.82 Long term (current) use of aspirin; Z79.899 Other long term (current) drug therapy
CPT/HCPCS: 71046; 80048; 83735; 84100; 84484; 85027; 93306; 93458; 94640

== ENCOUNTER 2021-10-12 15:04 | Emergency (ER) | payer SELFPAY ==
[2021-10-12 16:13] VITALS: TEMP 97.4
--- NOTE | 2021-10-12 17:45 | US ---
EXAMINATION TYPE: US venous doppler duplex UE LT DATE OF EXAM: 10/12/2021 COMPARISON: NONE CLINICAL HISTORY: pain possible blood clot. Patient states she had heart cath in right arm on 10/09. P t had IV in left arm, she is having pain and swelling at the prior IV site at the elbow. No hx of DVT . SIDE PERFORMED: Left upper extremity LEFT ARM: Internal echoes seen within the basilic vein at the elbow. This vessel does not appear to c ompress. Lack of color flow shown within basilic vein. No evidence of DVT in veins imaged at this winifred e. Unable to visualize cephalic vein. IMPRESSION: Negative for DVT, left upper extremity. However, positive for preocclusive left basilic vein thrombus at the elbow.
--- NOTE | 2021-10-12 19:18 | ED ---
General Adult HPI - General Chief complaint: Extremity Injury, Upper Stated complaint: L arm swelling Time Seen by Provider: 10/12/21 19:01 Source: patient, family, RN notes reviewed Mode of arrival: wheelchair Limitations: no limitations - History of Present Illness Initial comments: This is a pleasant 61-year-old female presents complaining of redness and swelling to the area of her left antecubital fossae which started today. Patient had a cardiac catheter on October 09 and states that she had a heart attack. Patient is only on aspirin from her billing spec. She denies any new shortness of breath or chest pain. Patient states that she has had shortness breath for quite some time. This is unrelated to this area on her arm. No fe kim or chills. There is no injury. Patient's cardiac catheter was approached from the right radial on the opposite side. No headache, no fever or chills, no changes in vision or hearing, no sore throat or difficulty with speech, no neck pain, no chest pain, no abdominal pain, no nausea or vomiting, no changes in urination or bowel movements, no numbness or tingling, no extremity pain, no skin rashes or lesions. - Related Data Home Medications Medication Instructions Recorded Confirmed Atorvastatin [Lipitor] 40 mg PO DAILY 10/12/21 10/12/21 Budesonide/Formoterol Fumarate 1 puff INHALATION RT-BID 10/12/21 10/12/21 [Symbicort 80-4.5 Mcg Inhaler] Previous Rx's Medication Instructions Recorded Albuterol Inhaler [Ventolin Hfa 1 puff INHALATION RT-QID PRN #8 gm 10/10/21 Inhaler] Aspirin 81 mg PO DAILY #30 tab 10/10/21 Famotidine [Pepcid] 20 mg PO DAILY #30 tablet 10/10/21 Metoprolol Succinate (ER) [Toprol 25 mg PO DAILY #30 tab 10/10/21 XL] Multivitamins, Thera [Multivitamin 1 each PO DAILY tab 10/10/21 (formulary)] Thiamine [Vitamin B-1] 100 mg PO BID-W/MEALS tab 10/10/21 lisinopriL [Zestril] 2.5 mg PO DAILY #30 tab 10/10/21 Cephalexin [Keflex] 500 mg PO Q6HR #40 cap 10/12/21 Allergies Allergy/AdvReac Type Severity Reaction Status Date / Time No Known Allergies Allergy Verified 10/12/21 19:38 Review of Systems ROS Statement: Those systems with pertinent positive or pertinent negative responses have been documented in the HPI. ROS Other: All systems not noted in ROS Statement are negative. Past Medical History Past Medical History: Hearing Disorder / Deafness, Myocardial Infarction ([place]) Additional Past Medical History / Comment(s): STATES WT LOSS OF 40 # OVER LAST 7 MONTHS, POOR APPETITE , FATIGUE., NODULE ON LUNG. , PARTIALLY DEAF RIGHT EAR., STATES 3 LOOSE TEETH ., STATES HX OF FALL & INJURED LEFT KNEE AND RIGHT WRIST (10/2017)-STATES LIMPING, & CANNOT USE RIGHT WRIST. History of Any Multi-Drug Resistant Organisms: None Reported Past Surgical History: Heart Catheterization With Stent Additional Past Surgical History / Comment(s): D & C Past Anesthesia/Blood Transfusion Reactions: No Reported Reaction Past Psychological History: Anxiety, Depression Smoking Status: Current every day smoker Past Alcohol Use History: Heavy Past Drug Use History: Marijuana - Past Family History Mother Family Medical History: Blood Disorder Additional Family Medical History / Comment(s): PROTEIN C - DEFICIENCY. Daughter(s) Family Medical History: Blood Disorder Additional Family Medical History / Comment(s): UNKNOWN NAME OF BLOOD DISORDER. General Exam Limitations: no limitations General appearance: alert, in no apparent distress Head exam: Present: atraumatic, normocephalic, normal inspection Eye exam: Present: normal appearance, PERRL, EOMI. Absent: scleral icterus, conjunctival injection, periorbital swelling ENT exam: Present: normal exam, mucous membranes moist Neck exam: Present: normal inspection. Absent: tenderness, meningismus, lymphadenopathy Respiratory exam: Present: normal lung sounds bilaterally. Absent: respiratory distress, wheezes, rales, rhonchi, stridor, chest wall tenderness, accessory muscle use Cardiovascular Exam: Present: regular rate, normal rhythm, normal heart sounds. Absent: systolic murmur, diastolic murmur, rubs, gallop, clicks GI/Abdominal exam: Present: soft, normal bowel sounds. Absent: distended, tenderness, guarding, rebound, rigid Extremities exam: Present: normal inspection, full ROM, tenderness (Patient has some tenderness and redness to the left antecubital fossa area with a palpable firm area to the venipuncture site overlying the left basilic vein. No palpable cord proximally. There is erythema is. Limited at 2 cm in diameter. No purulent drainage. Abscess.Nodistalabnormality.), normal capillary refill. A bsent: pedal edema, joint swelling, calf tenderness Back exam: Present: normal inspection Neurological exam: Present: alert, oriented X3, CN II-XII intact Psychiatric exam: Present: normal affect, normal mood Skin exam: Present: warm, dry, intact, normal color. Absent: rash Course Vital Signs 10/12/21 10/12/21 16:06 17:12 Temperature 97.4 F L Pulse Rate 91 80 Respiratory 18 16 Rate Blood Pressure 121/78 125/81 O2 Sat by Pulse 99 98 Oximetry EKG Findings - EKG Comments: EKG Findings:: EKG done at 1623 and read by the ED attending physician reveals sinus rhythm with sinus arrhythmia. Incomplete right bundle branch block, possible anterior myocardial infarction with poor R-wave progression. Nonspecific T-wave abnormalities. Normal intervals. Rate of 85. Normal axis Medical Decision Making - Medical Decision Making The case was discussed in detail with ED attending physician. Presentation, findings, treatment plan discussed in detail. Case will be discussed with the on-call vascular surgeon, Dr. Cameron--Case discussed, she recommends conservative therapy with elevation, warm compresses, and continued aspirin. No need for anticoagulation per vascular. Patient was told to return to the ER for any signs or symptoms worsen. Told to return immediately if any other problems arise. All questions answered. Treatment plan discussed. Patient in agreement Every effort has been made to ensure accuracy of this dictation. However, due to the limitations of electronic medical records and dictation devices, errors in charting still occur. - Lab Data Result diagrams: 10/12/21 19:24 10/12/21 19:24 Lab Results 10/12/21 10/12/21 Range/Units 19:24 19:24 WBC 8.9 (3.8-10.6) k/uL RBC 3.13 L (3.80-5.40) m/uL Hgb 11.1 L (11.4-16.0) gm/dL Hct 33.2 L (34.0-46.0) % MCV 105.9 H (80.0-100.0) fL MCH 35.5 H (25.0-35.0) pg MCHC 33.6 (31.0-37.0) g/dL RDW 16.1 H (11.5-15.5) % Plt Count 285 (150-450) k/uL MPV 7.4 Neutrophils % 72 % Lymphocytes % 16 % Monocytes % 4 % Eosinophils % 6 % Basophils % 1 % Neutrophils # 6.3 (1.3-7.7) k/uL Lymphocytes # 1.4 (1.0-4.8) k/uL Monocytes # 0.4 (0-1.0) k/uL Eosinophils # 0.5 (0-0.7) k/uL Basophils # 0.1 (0-0.2) k/uL Anisocytosis Slight Macrocytosis Moderate Sodium 134 L (137-145) mmol/L Potassium 4.1 (3.5-5.1) mmol/L Chloride 107 (98-107) mmol/L Carbon Dioxide 21 L (22-30) mmol/L Anion Gap 6 mmol/L BUN 8 (7-17) mg/dL Creatinine 0.49 L (0.52-1.04) mg/dL Est GFR (CKD-EPI)AfAm >90 (>60 ml/min/1.73 sqM) Est GFR (CKD-EPI)NonAf >90 (>60 ml/min/1.73 sqM) Glucose 93 (74-99) mg/dL Calcium 7.7 L (8.4-10.2) mg/dL Disposition Clinical Impression: Superficial thrombophlebitis of left upper extremity Narrative: Superficial thrombophlebitis, left upper extremity with minimal secondary cellulitis Disposition: HOME SELF-CARE Condition: Good Instructions (If sedation given, give patient instructions): Superficial Thrombophlebitis (ED) Additional Instructions: you can also use [id number] ibuprofen as directed on the bottle in addition to your daily aspirin. Elevation, warm compresses as directed.Follow- up with your regular physician as directed. Return to the ER immediately if any symptoms worsen, new symptoms arise, or any other problems develop. Is patient prescribed a controlled substance at d/c from ED?: No Referrals: Rosemary Cameron DO [STAFF PHYSICIAN] - 10/17/21 Time of Disposition: 22:10
[2021-10-12] MEDS ORDERED: CEPHALEXIN 500 MG CAP PO STA (19:30)
[2021-10-12 19:41] LABS: Anisocytosis Slight; Basophils # (A) 0.1 k/uL (0-0.2); Basophils % (A) 1 %; Eosinophils # (A) 0.5 k/uL (0-0.7); Eosinophils % (A) 6 %; HCT 33.2 % (34.0-46.0); HGB 11.1 gm/dL (11.4-16.0); Lymphocytes # (A) 1.4 k/uL (1.0-4.8); Lymphocytes % (A) 16 %; MCH 35.5 pg (25.0-35.0); MCHC 33.6 g/dL (31.0-37.0); MCV 105.9 fL (80.0-100.0); Macrocytosis Moderate; Mean Platelet Volume 7.4; Monocytes # (A) 0.4 k/uL (0-1.0); Monocytes % (A) 4 %; Neutrophils # (A) 6.3 k/uL (1.3-7.7); Neutrophils % (A) 72 %; Platelet Count 285 k/uL (150-450); RBC 3.13 m/uL (3.80-5.40); RDW 16.1 % (11.5-15.5); WBC 8.9 k/uL (3.8-10.6)
[2021-10-12 19:49] LABS: African American GFR (CKD) >90 (>60 ml/min/1.73 sqM); Anion Gap 6 mmol/L; Blood Urea Nitrogen 8 mg/dL (7-17); Calcium 7.7 mg/dL (8.4-10.2); Carbon Dioxide 21 mmol/L (22-30); Chloride 107 mmol/L (98-107); Glucose 93 mg/dL (74-99); Non-African American GFR(CKD) >90 (>60 ml/min/1.73 sqM); Potassium 4.1 mmol/L (3.5-5.1); Sodium 134 mmol/L (137-145)
[2021-10-12 21:38] VITALS: RESP 16
[2021-10-12 22:10] VITALS: BP 124/70; PULSE 71
== END 2021-10-12 22:36 | disposition home or self-care (01) ==
LOC: EC 15:04
DX: I80.8 Phlebitis and thrombophlebitis of other sites (principal); F17.200 Nicotine dependence, unspecified, uncomplicated; I25.2 Old myocardial infarction
CPT/HCPCS: 36415; 80048; 85025; 99284

== ENCOUNTER 2022-12-11 07:13 | Observation (INO) | payer OTHER ==
--- NOTE | 2022-12-11 07:49 | ED ---
General Adult HPI - General Chief complaint: Chest Pain Stated complaint: Heart attack Time Seen by Provider: 12/11/22 07:33 Source: patient Mode of arrival: ambulatory Limitations: no limitations - History of Present Illness Initial comments: Dictation was produced using [employer] dictation software. please excuse any grammatical, word or spelling errors. Chief Complaint: 62-year-old female past nuchal history coronary artery disease, COPD presents to the area for 2 days of chest pain History of Present Illness: 62-year-old female she has known coronary artery disease presents to the emergency department for sharp chest pain for the last 2 days. Patient had an episode of syncope yesterday. Syncope was witnessed by who also helps in providing history present illness. Patient's been having sharp chest pain to the substernal area. Worse with deep inspiration and cough. She denies any radiation to the back arm or jaw. No associated nausea or diaphoresis. Denies any history of blood clot. No lower extremity symptoms. Pain does not radiate to the scapular area. The ROS documented in this emergency department record has been reviewed and confirmed by me. Those systems with pertinent positive or negative responses have been documented in the HPI. All other systems are other negative and/or noncontributory. - Related Data Home Medications Medication Instructions Recorded Confirmed RX: Aspirin 325 mg PO Q4H PRN 08/27/22 12/11/22 Allergies Allergy/AdvReac Type Severity Reaction Status Date / Time No Known Allergies Allergy Verified 12/11/22 10:16 Review of Systems ROS Statement: Those systems with pertinent positive or pertinent negative responses have been documented in the HPI. ROS Other: All systems not noted in ROS Statement are negative. Past Medical History Past Medical History: Hearing Disorder / Deafness, Myocardial Infarction ([place]) Additional Past Medical History / Comment(s): STATES WT LOSS OF 40 # OVER LAST 7 MONTHS, POOR APPETITE , FATIGUE., NODULE ON LUNG. , PARTIALLY DEAF RIGHT EAR., STATES 3 LOOSE TEETH ., STATES HX OF FALL & INJURED LEFT KNEE AND RIGHT WRIST (10/2017)-STATES LIMPING, & CANNOT USE RIGHT WRIST. History of Any Multi-Drug Resistant Organisms: None Reported Past Surgical History: Heart Catheterization With Stent Additional Past Surgical History / Comment(s): D & C Past Anesthesia/Blood Transfusion Reactions: No Reported Reaction Past Psychological History: Anxiety, Depression Smoking Status: Current every day smoker Past Alcohol Use History: Heavy Past Drug Use History: Marijuana - Past Family History Mother Family Medical History: Blood Disorder Additional Family Medical History / Comment(s): PROTEIN C - DEFICIENCY. Daughter(s) Family Medical History: Blood Disorder Additional Family Medical History / Comment(s): UNKNOWN NAME OF BLOOD DISORDER. General Exam - General Exam Comments Initial Comments: PHYSICAL EXAM: General Impression: Alert and oriented x3, mild distress secondary to pain HEENT: Normocephalic atraumatic, extra-ocular movements intact, pupils equal and reactive to light bilaterally, mucous membranes moist. Cardiovascular: Heart regular rate and rhythm Chest: Able to complete full sentences, no retractions, no tachypnea Abdomen: abdomen soft, non-tender, non-distended, no organomegaly Musculoskeletal: Pulses present and equal in all extremities, no peripheral edema Motor: no focal deficits noted Neurological: CN II-XII grossly intact, no focal motor or sensory deficits noted Skin: Intact with no visualized rashes Psych: Normal affect and mood Limitations: no limitations Course Vital Signs 12/11/22 12/11/22 12/11/22 07:16 08:00 08:30 Temperature 98 F Pulse Rate 86 90 90 Respiratory 22 18 18 Rate Blood Pressure 191/99 196/101 218/130 O2 Sat by Pulse 99 100 100 Oximetry 12/11/22 09:00 Temperature Pulse Rate 90 Respiratory 20 Rate Blood Pressure 179/100 O2 Sat by Pulse Oximetry - Reevaluation(s) Reevaluation #1: 12/11/22 07:50 patient seen and evaluated in ER room #24. Vital signs reviewed. Patient mildly hypertensive. She has atypical chest pain typical features. She has multiple risk factors for several life-threatening causes of chest pain. Chart review was performed. Patient cardiac catheterization note was reviewed showing the patient has known coronary artery disease. Her chest pain she reports is exacerbated by deep inspiration and coughing. 12/11/22 07:50 EKG Findings - EKG Comments: EKG Findings:: My EKG interpretation: Ventricular rate 77, sinus rhythm,. Interval 190, QRS 90, QTC 423. No [place] prolongation, no QTC prolongation, no ST or T-wave changes noted. Compared to EKG from 08/27/2022 with no changes. Overall, this EKG is unremarkable Medical Decision Making - Medical Decision Making Was pt. sent in by a medical professional or institution (MICHAEL Eddy, [employer], urgent care, hospital, or long-term...) When possible be specific @ -No Did you speak to anyone other than the patient for history (EMS, parent, family, police, friend...)? What history was obtained from this source @ -No Did you review nursing and triage notes (agree or disagree)? Why? @ -I reviewed and agree with nursing and triage notes Were old charts reviewed (outside hosp., previous admission, EMS record, old EKG, old radiological studies, urgent care reports/EKG's, long-term records)? Report findings @ -No old charts were reviewed Differential Diagnosis (chest pain, altered mental status, abdominal pain women, abdominal pain men, vaginal bleeding, musculoskeletal, weakness, fever, dyspnea, syncope, headache, dizziness, GI bleed, back pain, seizure, CVA, palpatations, mental health)? @ -Differential Chest Pain: Stable Angina, Unstable Angina, STEMI, NSTEMI Aortic Dissection, Pneumothorax, Musculoskeletal, Esophageal Spasm GERD, Cholecystitis, Pancreatitis, Zoster, this is not meant to be an all-inclusive list. EKG interpreted by me (3pts min.). @ -See above X-rays interpreted by me (1pt min.). @ -Acute chest x-ray CT interpreted by me (1pt min.). @ -Dissection or pulmonary embolism on CT angiography of the chest U/S interpreted by me (1pt. min.). @ -None done What testing was considered but not performed or refused? (CT, X-rays, U/S, labs)? Why? @ -None What meds were considered but not given or refused? Why? @ -None Did you discuss the management of the patient with other professionals (professionals i.e. MICHAEL Eddy, [employer], lab, RT, psych nurse, social worker delinquency prevention, cart pusher, teacher, special weapons and tactics officer, high risk case manager)? Give summary @ -discussed with sound physician for admission. Labs and imaging EKG were discussed Was smoking cessation discussed for >3mins.? @ -No Was critical care preformed (if so, how long)? @ -No Were there social determinants of health that impacted care today? How? (Homele ssness, low income, unemployed, alcoholism, drug addiction, transportation, low edu. Level, literacy, decrease access to med. care, prison, rehab)? @ -No Was there de-escalation of care discussed even if they declined (Discuss DNR or withdrawal of care, Hospice)? DNR status @ -No What co-morbidities impacted this encounter? (DM, HTN, Smoking, COPD, CAD, Cancer, CVA, ARF, Chemo, Hep., AIDS, mental health diagnosis, sleep apnea, morbid obesity)? @ -None Was patient admitted / discharged? Hospital course, mention meds given and route, prescriptions, significant lab abnormalities, going to OR and other pertinent info. @ -62-year-old female presents with chest pain. She has multiple risk factors. Patient's pain is typical with atypical features. Vital signs shows hypertension. EKG is nonischemic. Labs shows negative troponin. D-dimer is normal. Patient still having severe pain. CT angiography was ordered now dissection or pulmonary embolism. Patient be admitted for cardiac monitoring cardiology consultation. Undiagnosed new problem with uncertain prognosis? @ -No Drug Therapy requiring intensive monitoring for toxicity (Heparin, Nitro, Insulin, Cardizem)? @ -No Were any procedures done? @ -No Diagnosis/symptom? Acute, or Chronic, or Acute on Chronic? Uncomplicated (without systemic symptoms) or Complicated (systemic symptoms)? @ -1. Chest pain Side effects of treatment? @ -No Exacerbation, Progression, or Severe Exacerbation? @ -No Poses a threat to life or bodily function? How? (Chest pain, [place], [place], pneumonia, PE, COPD, DKA, ARF, appy, cholecystitis, CVA, Diverticulitis, Homicidal, Suici barby, threat to staff... and all critical care pts) @ -yes - Lab Data Result diagrams: 12/11/22 07:45 12/11/22 07:45 Lab Results 12/11/22 12/11/22 12/11/22 Range/Units 07:45 07:45 07:45 WBC 8.7 (3.8-10.6) k/uL RBC 4.95 (3.80-5.40) m/uL Hgb 16.7 H (11.4-16.0) gm/dL Hct 48.5 H (34.0-46.0) % MCV 98.1 (80.0-100.0) fL MCH 33.8 (25.0-35.0) pg MCHC 34.5 (31.0-37.0) g/dL RDW 13.2 (11.5-15.5) % Plt Count 275 (150-450) k/uL MPV 7.6 Neutrophils % 83 % Lymphocytes % 11 % Monocytes % 3 % Eosinophils % 2 % Basophils % 0 % Neutrophils # 7.2 (1.3-7.7) k/uL Lymphocytes # 0.9 L (1.0-4.8) k/uL Monocytes # 0.3 (0-1.0) k/uL Eosinophils # 0.2 (0-0.7) k/uL Basophils # 0.0 (0-0.2) k/uL PT 10.0 (9.0-12.0) sec INR 0.9 (<1.2) APTT 21.5 L (22.0-30.0) sec D-Dimer 0.33 (<0.60) mg/L FEU Sodium 135 L (137-145) mmol/L Potassium 4.5 (3.5-5.1) mmol/L Chloride 103 (98-107) mmol/L Carbon Dioxide 20 L (22-30) mmol/L Anion Gap 12 mmol/L BUN 11 (7-17) mg/dL Creatinine 0.53 (0.52-1.04) mg/dL Est GFR (CKD-EPI)AfAm >90 (>60 ml/min/1.73 sqM) Est GFR (CKD-EPI)NonAf >90 (>60 ml/min/1.73 sqM) Glucose 166 H (74-99) mg/dL Calcium 9.6 (8.4-10.2) mg/dL Magnesium 1.6 (1.6-2.3) mg/dL Total Bilirubin 0.9 (0.2-1.3) mg/dL AST 35 (14-36) U/L ALT 19 (4-34) U/L Alkaline Phosphatase 117 (38-126) U/L Troponin I (0.000-0.034) ng/mL NT-Pro-B Natriuret Pep pg/mL Total Protein 7.6 (6.3-8.2) g/dL Albumin 4.5 (3.5-5.0) g/dL Lipase 49 (23-300) U/L 05/23/23 05/23/23 Range/Units 07:45 07:45 WBC (3.8-10.6) k/uL RBC (3.80-5.40) m/uL Hgb (11.4-16.0) gm/dL Hct (34.0-46.0) % MCV (80.0-100.0) fL MCH (25.0-35.0) pg MCHC (31.0-37.0) g/dL RDW (11.5-15.5) % Plt Count (150-450) k/uL MPV Neutrophils % % Lymphocytes % % Monocytes % % Eosinophils % % Basophils % % Neutrophils # (1.3-7.7) k/uL Lymphocytes # (1.0-4.8) k/uL Monocytes # (0-1.0) k/uL Eosinophils # (0-0.7) k/uL Basophils # (0-0.2) k/uL PT (9.0-12.0) sec INR (<1.2) APTT (22.0-30.0) sec D-Dimer (<0.60) mg/L FEU Sodium (137-145) mmol/L Potassium (3.5-5.1) mmol/L Chloride (98-107) mmol/L Carbon Dioxide (22-30) mmol/L Anion Gap mmol/L BUN (7-17) mg/dL Creatinine (0.52-1.04) mg/dL Est GFR (CKD-EPI)AfAm (>60 ml/min/1.73 sqM) Est GFR (CKD-EPI)NonAf (>60 ml/min/1.73 sqM) Glucose (74-99) mg/dL Calcium (8.4-10.2) mg/dL Magnesium (1.6-2.3) mg/dL Total Bilirubin (0.2-1.3) mg/dL AST (14-36) U/L ALT (4-34) U/L Alkaline Phosphatase (38-126) U/L Troponin I <0.012 (0.000-0.034) ng/mL NT-Pro-B Natriuret Pep 504 pg/mL Total Protein (6.3-8.2) g/dL Albumin (3.5-5.0) g/dL Lipase (23-300) U/L Disposition Clinical Impression: Chest pain Disposition: ADMITTED IP TO THIS HOSP Condition: Fair Referrals: None,Stated [Primary Care Provider] - 1-2 days Decision Time: 10:00
[2022-12-11 07:52] LABS: Basophils % (A) 0 %; Eosinophils # (A) 0.2 k/uL (0-0.7); Eosinophils % (A) 2 %; HCT 48.5 % (34.0-46.0); HGB 16.7 gm/dL (11.4-16.0); Lymphocytes # (A) 0.9 k/uL (1.0-4.8); Lymphocytes % (A) 11 %; MCH 33.8 pg (25.0-35.0); MCHC 34.5 g/dL (31.0-37.0); MCV 98.1 fL (80.0-100.0); Mean Platelet Volume 7.6; Monocytes # (A) 0.3 k/uL (0-1.0); Monocytes % (A) 3 %; Neutrophils # (A) 7.2 k/uL (1.3-7.7); Neutrophils % (A) 83 %; Platelet Count 275 k/uL (150-450); RBC 4.95 m/uL (3.80-5.40); RDW 13.2 % (11.5-15.5); WBC 8.7 k/uL (3.8-10.6)
[2022-12-11 08:07] LABS: ALT 19 U/L (4-34); African American GFR (CKD) >90 (>60 ml/min/1.73 sqM); Albumin 4.5 g/dL (3.5-5.0); Anion Gap 12 mmol/L; Blood Urea Nitrogen 11 mg/dL (7-17); Calcium 9.6 mg/dL (8.4-10.2); Carbon Dioxide 20 mmol/L (22-30); Chloride 103 mmol/L (98-107); Glucose 166 mg/dL (74-99); Lipase 49 U/L (23-300); Non-African American GFR(CKD) >90 (>60 ml/min/1.73 sqM); Sodium 135 mmol/L (137-145); Total Bilirubin 0.9 mg/dL (0.2-1.3); Total Protein 7.6 g/dL (6.3-8.2)
[2022-12-11 08:14] LABS: AST 35 U/L (14-36); Alkaline Phosphatase 117 U/L (38-126); Magnesium 1.6 mg/dL (1.6-2.3); Potassium 4.5 mmol/L (3.5-5.1)
[2022-12-11 08:15] LABS: INR 0.9 (<1.2)
[2022-12-11 08:18] LABS: Partial Thromboplastin Time 21.5 sec (22.0-30.0)
--- NOTE | 2022-12-11 08:24 | XR ---
EXAMINATION TYPE: XR chest 2V DATE OF EXAM: 12/11/2022 COMPARISON: 08/27/2022 HISTORY: 62-year-old female with chest pain TECHNIQUE: AP and lateral views FINDINGS: The cardiomediastinal silhouette, aorta, and pulmonary vasculature are within normal limits. Hyperinf lation. Otherwise, there is a nipple shadow projecting at the right lower lung. Remainder of the lung s and pleural spaces are clear. IMPRESSION: COPD. No acute process seen.
--- NOTE | 2022-12-11 09:45 | CT ---
EXAMINATION TYPE: CT angio thor/abd pel aorta CT DLP: 826 mGycm, Automated exposure control for dose reduction was used. DATE OF EXAM: 12/11/2022 9:34 AM COMPARISON: 08/16/2017. CLINICAL INDICATION:Female, 62 years old with history of suspect aortic dissection, POSS DISSECTION, pain TECHNIQUE: Dissection protocol: Multiple axial CT images of the chest, abdomen, and pelvis were obtai ramila prior and to the administration of IV contrast. 3-D reformats and maximum intensity projection fo rmat were performed on a separate workstation. Contrast used:100 mL of Isovue 370 without and with IV Contrast, Oral contrast used: None FINDINGS: ARTERIAL VASCULATURE: No evidence for intramural hematoma on noncontrast imaging. On postcontrast roseann ging the aorta does not demonstrate aneurysmal dilation or evidence for intimal flap. There is scatte red mild atherosclerosis of the aorta. The vessels of the aortic arch are patent. The abdominal aorti c major vessels are patent. There is 2 right renal arteries and one left renal artery. PULMONARY ARTERIAL VASCULATURE: Normal caliber. No evidence of filling defect to suggest pulmonary em bolus. VENOUS SYSTEM: Unremarkable. Lungs/pleura: Paraseptal emphysema changes. No focal consolidation, pneumothorax or pleural effusion. Suspected atelectasis/scarring in the right posterior lung series 201 image 12 with linear D extendi ng towards the pleura. This area measures roughly 2 mm. Additional scattered 2 mm densities are prese nt. Heart: Within normal limits. Mild atherosclerosis of the coronary arteries. Mediastinum: No gross evidence of adenopathy. Lower Neck: No significant findings. Abdomen: Liver: Unremarkable. Gallbladder and Bile ducts: Unremarkable. Pancreas: Unremarkable. Spleen: Unremarkable. Adrenal glands: Unremarkable. Kidneys and Ureters: Unremarkable. No hydronephrosis. Bladder: Unremarkable. Reproductive: Unremarkable. Stomach and Bowel: Unremarkable. No evidence of bowel obstruction. The appendix is normal. Peritoneum: No evidence of pneumoperitoneum, free fluid, or adenopathy. Musculoskeletal: The osseous structures appear intact. Lymph nodes: No evidence of lymphadenopathy. Abdominal wall/soft tissues: Unremarkable. IMPRESSION: 1. No evidence for thoracic aortic dissection, aneurysm or acute process. 2. No evidence for acute thoracic or abdominal process. 3. Mild paraseptal emphysema. 4. Mild coronary artery atherosclerosis.
[2022-12-11] MEDS ORDERED: ASPIRIN 81 MG PO STA (10:08)
[2022-12-11] MEDS ORDERED: NITROGLYCERIN SL TABS 0.4 MG TAB SUBLINGUAL PRN (10:17)
[2022-12-11] MEDS ORDERED: MORPHINE SULFATE 4 MG/ML SYRINGE IV STA (10:43)
[2022-12-11] MEDS ORDERED: ONDANSETRON 4 MG/2 ML VIAL IVP STA (10:43)
[2022-12-11] MEDS ORDERED: LABETALOL 5 MG/ML VIAL MDV IVP STA (11:26)
[2022-12-11] MEDS ORDERED: ACETAMINOPHEN TAB 325 MG TAB PO PRN (11:29)
[2022-12-11] MEDS ORDERED: NALOXONE 0.4 MG/ML 1 ML VIAL IVP PRN (11:29)
[2022-12-11] MEDS ORDERED: ATORVASTATIN 80 MG TAB PO SCH (11:30)
[2022-12-11] MEDS ORDERED: amLODIPine 5 MG TAB PO SCH (11:45)
[2022-12-11] MEDS: METOPROLOL TARTRATE 25 MG TAB PO SCH ×2 (12:03→20:19)
[2022-12-11] MEDS: MAGNESIUM SULFATE-D5W PMX 1 GM in DEXTROSE/WATER 1 100ML.BAG IVPB SCH ×2 (12:03→13:04)
--- NOTE | 2022-12-11 12:19 | P.HPIM ---
History of Present Illness H&P Date: 12/11/22 History of Presenting Illness: Patient is a very pleasant 62-year-old female with a past medical history of CAD, hyperlipidemia, hypertension, nicotine dependence, marijuana use and EtOH abuse with reports of binge drinking behaviors approximately 1x per week. She presented to the emergency department with a chief complaint of chest pain along with reports of syncopal episode yesterday. Patient reports she has been experiencing pain to midsternal chest 2 days. Patient describes this pain as being sharp and stabbing and denies any radiation of pain. She does report pain is worse and upon taking a deep breath or with coughing. She states that s he has went without insurance for quite some time so she has been taking her 's blood pressure medication metoprolol but does not recall the dose. Patient states she stopped taking her 's blood pressure medication a couple days ago but now has insurance. She reports when she took her blood pressure at home and seen how high it was she knew she had to come to the emergency department and get checked out. Patient denies fevers, chills, cough or congestion, shortness of breath, nausea, vomiting, or experiencing any numbness/tingling/weakness/swelling in her extremities. She reports her last alcoholic beverage being greater than 2 weeks ago and denies any other substance use/abuse. Upon arrival to the hospital patient was in hypertensive urgency with blood pressure 211/110, heart rate 80, respiratory rate 18, and SpO2 of 99% on room air. Labs completed and reviewed. CBC revealing elevated hemoglobin of 16.7 consistent with COPD and continued nicotine dependence. Coagulation profile showing no significant abnormalities including negative d-dimer of 0.33. BMP unremarkable. Liver profile normal findings. Magnesium was low at 1.6. Troponin negative at less than 0.012 with pro-BMP of 504. EKG completed showing normal sinus rhythm at 77 bpm with septal/lateral T-wave inversion in leads aVL and V1, and V2 with no signs of ST abnormalities upon personal review and interpretation. When compared to previous EKG completed on 08/27/22 T-wave inversions unchanged. Chest x-ray completed and upon personal review is showing hyperinflation consistent with COPD, but negative for acute cardiopulmonary process. CTA chest/abdomen/pelvis with runoff showing no evidence for aortic dissection, aneurysm, or acute process with signs of mild paraseptal emphysema and mild coronary artery atherosclerosis. Discussed in detail with the ED physician. Patient being admitted under our services with consultation to cardiology. Review of systems: Pertinent positives and negatives as discussed in HPI, a complete review of systems was performed and all other systems are negative. Physical exam: Vital signs reviewed and stable. General: Nontoxic, patient appears older than biological age. Disheveled appearance. Derm: Skin warm and dry, normal coloration for ethnicity. Multiple scab lee on face and extremities. Head: Atraumatic, normocephalic and symmetric. Eyes: EOMs intact, no lid lag, and anicteric sclera Mouth: no lip lesions, mucus membranes moist Cardiovascular: regular rate and rhythm with normal S1S2, systolic murmur, positive posterior tibial pulses bilaterally, and cap refill < 2 seconds. Lungs: Respirations even, regular, and unlabored on room air. Lungs CTA bilaterally, no rhonchi, no rales, no wheezing, and no accessory muscle usage. Abdominal: soft, nontender to palpation, no guarding, no appreciable organomegaly Ext: ROM intact. No gross muscle atrophy, no edema, no contractures Neuro: Speech clear, face symmetrical and CN II-XII grossly intact with no noted focal neuro deficits Psych: Alert and oriented to person, place, time, and situation. Patient appears jittery Assessment and Plan of Care: Chest pain Hypertensive urgency Concerns of possible substance abuse versus EtOH abuse Hypomagnesemia -Upon arrival to the hospital patient was in hypertensive urgency with blood pressure 211/110, heart rate 80, respiratory rate 18, and SpO2 of 99% on room air. -Labs completed and reviewed. CBC revealing elevated hemoglobin of 16.7 consistent with COPD and continued nicotine dependence. Coagulation profile showing no significant abnormalities including negative d-dimer of 0.33. BMP unremarkable. Liver profile normal findings. Magnesium was low at 1.6. Troponin negative at less than 0.012 with pro-BMP of 504. -EKG completed showing normal sinus rhythm at 77 bpm with septal/lateral T-wave inversion in leads aVL and V1, and V2 with no signs of ST abnormalities upon personal review and interpretation. When compared to previous EKG completed on 08/27/22 T-wave inversions unchanged. -Chest x-ray completed and upon personal review is showing hyperinflation consistent with COPD, but negative for acute cardiopulmonary process. -CTA chest/abdomen/pelvis with runoff showing no evidence for aortic dissection, aneurysm, or acute process with signs of mild paraseptal emphysema and mild coronary artery atherosclerosis. -Discussed presenting complaints, laboratory analysis, and imaging findings in detail with the ED physician. Patient being admitted under our services to observation unit with telemetry. -Order placed for urine drug screen checked exhibiting signs concerning for possible withdrawal. Patient reports that she has not used alcohol in greater than 2 weeks and denies ever having history of daily use. Patient denies any other drug use at this time. -Orders placed for magnesium sulfate 2 g IVPB 1 dose and we will recheck ma gnesium level tomorrow morning to follow up for resolution of hypomagnesemia. -Cardiology consulted, appreciate further recommendations -Trend troponins -Cardiac diet, NPO at midnight -Orders placed for daily Aspirin, atorvastatin, and metoprolol. In addition patient being started on atorvastatin 10 mg daily. -Lipid profile with a.m. labs. -Reviewed echocardiogram completed during previous hospital stay on 10/09/21 which revealed a mildly impaired EF of 45-50% with hypokinetic movement through out anterior and apical left ventricular wall. Cardiac catheterization completed 10/08/21 revealed mild CAD with mid inferior and mid anterior hypokinesis possibly representing Takotsubo's cardiomyopathy versus mild myocarditis. CODE STATUS: Full code DVT prophylaxis: Lovenox Discussed with: Patient, ED physician, and RN Anticipated discharge date: Clinical course to determine Anticipated discharge place: Home Patient was seen independently by Nurse Practitioner. This document was prepared using [employer] dictation software. Please allow for errors in prepleater while rare they do occur. Charanjit Pace NP rendered care for this patient independently, reviewed the findings and plan as documented in the note above. I did not physically speak with or examine the patient on this date. Past Medical History Past Medical History: Hearing Disorder / Deafness, Myocardial Infarction ([place]) Additional Past Medical History / Comment(s): STATES WT LOSS OF 40 # OVER LAST 7 MONTHS, POOR APPETITE , FATIGUE., NODULE ON LUNG. , PARTIALLY DEAF RIGHT EAR., STATES 3 LOOSE TEETH ., STATES HX OF FALL & INJURED LEFT KNEE AND RIGHT WRIST (10/2017)-STATES LIMPING, & CANNOT USE RIGHT WRIST. History of Any Multi-Drug Resistant Organisms: None Reported Past Surgical History: Heart Catheterization With Stent Additional Past Surgical History / Comment(s): D & C Past Anesthesia/Blood Transfusion Reactions: No Reported Reaction Past Psychological History: Anxiety, Depression Smoking Status: Current every day smoker Past Alcohol Use History: Heavy Past Drug Use History: Marijuana - Past Family History Mother Family Medical History: Blood Disorder Additional Family Medical History / Comment(s): PROTEIN C - DEFICIENCY. Daughter(s) Family Medical History: Blood Disorder Additional Family Medical History / Comment(s): UNKNOWN NAME OF BLOOD DISORDER. Medications and Allergies Home Medications Medication Instructions Recorded Confirmed Type Aspirin 81 mg PO DAILY 30 Days #30 tab 12/12/22 12/13/22 Rx Atorvastatin [Lipitor] 20 mg PO HS 30 Days #30 tab 12/12/22 12/13/22 Rx amLODIPine [Norvasc] 10 mg PO DAILY 30 Days #30 tab 12/12/22 12/13/22 Rx carvediloL [Coreg] 6.25 mg PO BID-W/MEALS 30 Days #60 12/13/22 Rx tab Allergies Allergy/AdvReac Type Severity Reaction Status Date / Time No Known Allergies Allergy Verified 12/13/22 07:39 Physical Exam Vitals: Vital Signs Temp Pulse Resp BP Pulse Ox 12/11/22 10:00 80 18 211/110 99 12/11/22 09:00 90 20 179/100 12/11/22 08:30 90 18 218/130 100 12/11/22 08:00 90 18 196/101 100 12/11/22 07:16 98 F 86 22 191/99 99 Intake and Output 12/10/22 12/11/22 12/11/22 22:59 06:59 14:59 Other: Weight 47.627 kg Results CBC & Chem 7: 12/11/22 07:45 12/11/22 07:45 Labs: Abnormal Lab Results - Last 24 Hours (Table) 12/11/22 12/11/22 12/11/22 Range/Units 07:45 07:45 07:45 Hgb 16.7 H (11.4-16.0) gm/dL Hct 48.5 H (34.0-46.0) % Lymphocytes # 0.9 L (1.0-4.8) k/uL APTT 21.5 L (22.0-30.0) sec Sodium 135 L (137-145) mmol/L Carbon Dioxide 20 L (22-30) mmol/L Glucose 166 H (74-99) mg/dL
[2022-12-11] MEDS ORDERED: amLODIPine 5 MG TAB PO STA (13:43)
[2022-12-11] MEDS: METOPROLOL TARTRATE 5 MG/5 ML VIAL IVP SCH ×2 (14:08→17:20)
[2022-12-11 15:14] LABS: Cocaine Screen,Urine Not Detected (NotDetected); Opiate Screen,Urine Detected (NotDetected); Phencyclidine Screen,Urine Not Detected (NotDetected); Urn Cannabinoid Scrn Detected (NotDetected)
[2022-12-11 15:15] LABS: Amphetamine Screen,Urine Not Detected (NotDetected); Barbiturate Screen,Urine Not Detected (NotDetected); Benzodiazepines Screen,Urine Not Detected (NotDetected); Methadone Screen, Urine Not Detected (NotDetected); Oxycodone Screen, Urine Not Detected (NotDetected); Tricyclic Antidepressant,Urine Not Detected (NotDetected)
--- NOTE | 2022-12-11 19:30 | CA ---
Transthoracic Echo Report Name: Verna Celaya Age: 62 Gender: F : 1960 Exam Date: 12/11/2022 14:14 Exam Location: [facility] Ht (in): 64 Wt (lb): 105 Ordering Physician: Melissa Gross Attending/Referring Phys: [id number], Ginny Production Operations Engineer Jacqueline Diaz, CHELLE Procedure CPT: Indications: LV function Cardiac Hx: Technical Quality: Good Contrast 1: Total Dose (mL): Contrast 2: Total Dose (mL): MEASUREMENTS (Male / Female) Normal Values 2D ECHO LV Diastolic Diameter PLAX 3.1 cm 4.2 - 5.9 / 3.9 - 5.3 cm LV Systolic Diameter PLAX 2.1 cm IVS Diastolic Thickness 0.6 cm 0.6 - 1.0 / 0.6 - 0.9 cm LVPW Diastolic Thickness 0.9 cm 0.6 - 1.0 / 0.6 - 0.9 cm LV Relative Wall Thickness 0.5 RV Internal Dim ED PLAX 2.7 cm LA Systolic Diameter LX 2.2 cm 3.0 - 4.0 / 2.7 - 3.8 cm LA Volume 20.8 cm??? 18 - 58 / 22 - 52 cm??? M-MODE Aortic Root Diameter MM 2.8 cm AV Cusp Separation MM 2.2 cm DOPPLER AV Peak Velocity 104.0 cm/s AV Peak Gradient 4.3 mmHg MV Area PHT 2.4 cm??? Mitral E Point Velocity 50.1 cm/s Mitral A Point Velocity 63.0 cm/s Mitral E to A Ratio 0.8 MV Deceleration Time 310.9 ms MV E' Velocity 8.0 cm/s Mitral E to MV E' Ratio 6.2 TR Peak Velocity 202.6 cm/s TR Peak Gradient 16.4 mmHg Right Ventricular Systolic Press 21.4 mmHg FINDINGS Left Ventricle Left ventricular ejection fraction is estimated at 55-60 %. Small left ventricular cavity. Right Ventricle Normal right ventricular size and function. Right ventricular systolic pressure within normal limits. Right Atrium Normal right atrial size. Left Atrium Normal left atrial size. Mitral Valve Structurally normal mitral valve. No mitral stenosis, regurgitation or prolapse. Aortic Valve Trileaflet aortic valve. No aortic valve stenosis or regurgitation. Tricuspid Valve Structurally normal tricuspid valve. Trace tricuspid regurgitation. Pulmonic Valve Pulmonic valve not well visualized. Pericardium Normal pericardium. No pericardial effusion. Aorta Normal size aortic root and proximal ascending aorta. CONCLUSIONS Normal LV size and systolic function Normal RV size and function Normal right sided pressures Previewed by: Dr. Mo Hebert MD (Electronically Signed) Final Date: 11 Dec 2022 19:29
[2022-12-11 20:27] LABS: Urine Alcohol Negative (Negative); Urine Barbiturate Negative (Negative); Urine Cocaine Negative (Negative); Urine Methadone Negative (Negative); Urine Opiates Positive (Negative); Urine Phencyclidine Negative (Negative)
[2022-12-11] MEDS: IPRATROPIUM-ALBUTEROL 3 ML NEB INHALATION PRN (21:21)
[2022-12-12] MEDS ORDERED: ONDANSETRON 4 MG/2 ML VIAL IVP STA (05:56)
[2022-12-12] MEDS: IPRATROPIUM-ALBUTEROL 3 ML NEB INHALATION PRN (07:19)
[2022-12-12 07:50] VITALS: BP 121/78; PULSE 65; RESP 16; TEMP 98.1
[2022-12-12] MEDS: METOPROLOL TARTRATE 25 MG TAB PO SCH (08:35)
--- NOTE | 2022-12-12 08:54 | P.CRDCN ---
History of Present Illness Consult date: 12/11/22 History of present illness: HISTORY OF PRESENT ILLNESS: This is a 62-year-old female with a past medical history significant for coronary artery disease, hypertension, hyperlipidemia, nicotine dependence, and alcohol abuse. Patient does not follow with a photography manager. We have been asked to see the patient in consultation for chest pain. Patient examined at the bedside. Patients blood pressure was extremely elevated in the emergency room with readings as high as 218/130. She received IV labetalol per the ER physician with improvement in her chest pain. The patient does report taking her 's labetalol at home because she did not have insurance. She states that she developed chest pain yesterday which from her to come to the emergency room for further evaluation. She states once her blood pressure was controlled her chest pain improved. She reports that she started coughing up a lot of phlegm which she relates to her COPD. She denies chest pain or pressure at the time of examination. Patient's blood pressure is much better controlled this morning. * EKG reveals sinus mechanism with T-wave inversions in V1 to V2 * Chest xray COPD. No acute process seen. * Laboratory data: WBC 8.7. Hemoglobin 16.7. Platelet count 275. D-dimer 0.33. Sodium 135. Potassium 4.5. BUN 11. Creatinine 0.53. Troponin negative 2. ProBNP 504. * Current home cardiac medications include none * Echocardiogram obtained in September 2021 revealed ejection fraction 45-50%, apical anterior and apical septal LV wall hypokinesis. * Repeat echocardiogram performed this admission reveals an ejection fraction 55-60% * Cardiac catheterization history: September [address] Xiong revealing mild coronary artery disease including 30% proximal LAD and mid 30% stenosis of RCA. Normal left-sided filling pressures. REVIEW OF SYSTEMS: At the time of my exam: CONSTITUTIONAL: Denies fever or chills. HEENT: Denies blurred vision, vision changes, or eye pain. Denies hemoptysis CARDIOVASCULAR: Denies chest pain. Denies orthopnea. Denies PND. Denies palpitations RESPIRATORY: Denies shortness of breath. GASTROINTESTINAL: Denies abdominal pain. Denies nausea or vomiting. HEMATOLOGIC: Denies bleeding disorders. GENITOURINARY: Denies any blood in urine. SKIN: Denies pruitis. Denies rash. PHYSICAL EXAM: VITAL SIGNS: Reviewed. GENERAL: Well-developed in no acute distress. HEENT: Head is normocephalic. Pupils are equal, round. Sclerae anicteric. Mucous membranes of the mouth are moist. Neck supple. No JVD or thyromegaly LUNGS: Respirations even and unlabored. Lungs essentially clear to auscultation bilaterally. HEART: Regular rate and rhythm. S1 and S2 heard. ABDOMEN: Soft. Nondistended. Nontender. EXTREMITIES: Normal range of motion. No clubbing or cyanosis. Peripheral pulses intact. No lower extremity edema NEUROLOGIC: Awake and alert. Oriented x 3. ASSESSMENT: Chest pain Hypertensive urgency, improving Mild nonobstructive coronary artery disease History of hypertension Hyperlipidemia Nicotine dependence Alcohol abuse Medication noncompliance, secondary to financial issues, patient without insurance previously PLAN: An acute coronary event has been ruled out Continue current cardiac medications Add Aspirin and Lipitor Recommend outpatient stress testing Patient may be discharged home today from a cardiac standpoint She is to follow up on an outpatient basis with Dr. Morel Nurse practitioner note has been reviewed by physician. Signing provider agrees with the documented findings, assessment, and plan of care. Past Medical History Past Medical History: Hearing Disorder / Deafness, Myocardial Infarction ([place]) Additional Past Medical History / Comment(s): STATES WT LOSS OF 40 # OVER LAST 7 MONTHS, POOR APPETITE , FATIGUE., NODULE ON LUNG. , PARTIALLY DEAF RIGHT EAR., STATES 3 LOOSE TEETH ., STATES HX OF FALL & INJURED LEFT KNEE AND RIGHT WRIST (10/2017)-STATES LIMPING, & CANNOT USE RIGHT WRIST. History of Any Multi-Drug Resistant Organisms: None Reported Past Surgical History: Heart Catheterization With Stent Additional Past Surgical History / Comment(s): D & C Past Anesthesia/Blood Transfusion Reactions: No Reported Reaction Past Psychological History: Anxiety, Depression Smoking Status: Current every day smoker Past Alcohol Use History: Heavy Past Drug Use History: Marijuana - Past Family History Mother Family Medical History: Blood Disorder Additional Family Medical History / Comment(s): PROTEIN C - DEFICIENCY. Daughter(s) Family Medical History: Blood Disorder Additional Family Medical History / Comment(s): UNKNOWN NAME OF BLOOD DISORDER. Medications and Allergies Home Medications Medication Instructions Recorded Confirmed Type Aspirin 325 mg PO Q4H PRN 08/27/22 12/11/22 History Allergies Allergy/AdvReac Type Severity Reaction Status Date / Time No Known Allergies Allergy Verified 12/11/22 10:16 Physical Exam Vitals: Vital Signs Temp Pulse Resp BP Pulse Ox 12/11/22 13:06 77 20 200/120 98 12/11/22 12:07 77 16 137/107 96 12/11/22 11:49 97 16 160/130 93 L 12/11/22 10:00 80 18 211/110 99 12/11/22 09:00 90 20 179/100 12/11/22 08:30 90 18 218/130 100 12/11/22 08:00 90 18 196/101 100 12/11/22 07:16 98 F 86 22 191/99 99 Intake and Output 12/10/22 12/11/22 12/11/22 22:59 06:59 14:59 Other: Weight 47.627 kg Results 12/11/22 07:45 12/11/22 07:45 Cardiac Enzymes 12/11/22 12/11/22 12/11/22 Range/Units 07:45 07:45 11:04 AST 35 (14-36) U/L Troponin I <0.012 <0.012 (0.000-0.034) ng/mL Coagulation 12/11/22 Range/Units 07:45 PT 10.0 (9.0-12.0) sec APTT 21.5 L (22.0-30.0) sec CBC 12/11/22 Range/Units 07:45 WBC 8.7 (3.8-10.6) k/uL RBC 4.95 (3.80-5.40) m/uL Hgb 16.7 H (11.4-16.0) gm/dL Hct 48.5 H (34.0-46.0) % Plt Count 275 (150-450) k/uL Comprehensive Metabolic Panel 12/11/22 Range/Units 07:45 Sodium 135 L (137-145) mmol/L Potassium 4.5 (3.5-5.1) mmol/L Chloride 103 (98-107) mmol/L Carbon Dioxide 20 L (22-30) mmol/L BUN 11 (7-17) mg/dL Creatinine 0.53 (0.52-1.04) mg/dL Glucose 166 H (74-99) mg/dL Calcium 9.6 (8.4-10.2) mg/dL AST 35 (14-36) U/L ALT 19 (4-34) U/L Alkaline Phosphatase 117 (38-126) U/L Total Protein 7.6 (6.3-8.2) g/dL Albumin 4.5 (3.5-5.0) g/dL Current Medications Generic Name Dose Route Start Last Admin Trade Name Freq PRN Reason Stop Dose Admin Acetaminophen 650 mg 12/11/22 11:29 Acetaminophen Tab 325 Mg Tab PO Q6HR PRN Mild Pain or Fever > 100.5 Amlodipine Besylate 5 mg 12/11/22 11:45 12/11/22 12:03 Amlodipine 5 Mg Tab PO 5 mg DAILY KEN Administration Aspirin 325 mg 12/12/22 09:00 Aspirin 325 Mg Tab PO DAILY KEN Atorvastatin Calcium 80 mg 12/11/22 11:30 12/11/22 12:03 Atorvastatin 80 Mg Tab PO 80 mg DAILY KEN Administration Magnesium Sulfate/Dextrose 1 100 mls @ 100 mls/hr 12/11/22 11:30 12/11/22 13:04 gm/ IV Solution IVPB 12/11/22 13:29 100 mls/hr Q1H KEN Administration Metoprolol Tartrate 25 mg 12/11/22 11:30 12/11/22 12:03 Metoprolol Tartrate 25 Mg Tab PO 25 mg BID KEN Administration Naloxone HCl 0.2 mg 12/11/22 11:29 Naloxone 0.4 Mg/Ml 1 Ml Vial IVP Q2M PRN Opioid Reversal Nitroglycerin 0.4 mg 12/11/22 10:17 Nitroglycerin Sl Tabs 0.4 Mg Tab SUBLINGUAL Q5M PRN Chest Pain Intake and Output 12/10/22 12/11/22 12/11/22 22:59 06:59 14:59 Other: Weight 47.627 kg Patient Weight 12/12/22 06:59 Weight 47.627 kg 12/11/22 07:45 12/11/22 07:45
[2022-12-12 09:00] LABS: Chol/HDL Ratio 3.72 Ratio; LDL Cholesterol,Calculated 132.9 mg/dL (0.0-131.0)
[2022-12-12] MEDS ORDERED: amLODIPine 10 MG TAB PO SCH (09:00)
[2022-12-12] MEDS ORDERED: ASPIRIN 325 MG TAB PO SCH (09:00)
[2022-12-12] MEDS ORDERED: ENOXAPARIN 40 MG/0.4 ML SYRINGE SQ SCH (09:00)
[2022-12-12] MEDS ORDERED: ASPIRIN 81 MG PO SCH (09:00)
[2022-12-12] MEDS ORDERED: NICOTINE 21MG/24HR PATCH TRANSDERM SCH (09:00)
--- NOTE | 2022-12-12 09:51 | P.DS ---
Providers Date of admission: 12/11/22 10:17 Expected date of discharge: 12/12/22 Attending physician: Paddy Taveras MD Consults: 12/11/22 10:17 Consult Physician Urgent Consulting Provider: Tony Xiong Consult Reason/Comments: chest pain Do you want consulting provider notified?: Yes Primary care physician: Stated None Hospital Course: Discharge Diagnosis: Chest pain, acute coronary event ruled out. Cardiology evaluating recommending patient start aspirin and Lipitor daily and follow-up outpatient in their office for scheduling of outpatient stress testing. Hypertensive urgency patient started on amlodipine 10 mg daily along with metoprolol 25 mg twice daily. Blood pressures much better controlled.. blood pressure 121/78 with heart rate of 65 upon discharge. Patient instructed she'll need to monitor her blood pressures closely at home twice daily and document these findings in a daily log to bring with her to her next doctor's appointment to enable additional changes/adjustments to current antihypertensive medication regimen. Concerns of possible substance abuse versus EtOH abuse. Urine drug screen positive for opiates and marijuana. Hypomagnesemia, Replaced. Hospital Course: Patient is a very pleasant 62-year-old female with a past medical history of CAD, hyperlipidemia, hypertension, nicotine dependence, marijuana use and EtOH abuse with reports of binge drinking behaviors approximately 1x per week. She presented to the emergency department with a chief complaint of chest pain along with reports of syncopal episode yesterday. Patient reports she has been experiencing pain to midsternal chest 2 days. Patient describes this pain as being sharp and stabbing and denies any radiation of pain. She does report pain is worse and upon taking a deep breath or with coughing. She states that she has went without insurance for quite some time so she has been taking her 's blood pressure medication metoprolol but does not recall the dose. Patient states she stopped taking her 's blood pressure medication a couple days ago but now has insurance. She reports when she took her blood pressure at home and seen how high it was she knew she had to come to the emergency department and get checked out. Patient denies fevers, chills, cough or congestion, shortness of breath, nausea, vomiting, or experiencing any numbness/tingling/weakness/swelling in her extremities. She reports her last alcoholic beverage being greater than 2 weeks ago and denies any other substance use/abuse. Upon arrival to the hospital patient was in hypertensive urgency with blood pressure 211/110, heart rate 80, respiratory rate 18, and SpO2 of 99% on room air. Labs completed and reviewed. CBC revealing elevated hemoglobin of 16.7 consistent with COPD and continued nicotine dependence. Coagulation profile showing no significant abnormalities including negative d-dimer of 0.33. BMP unremarkable. Liver profile normal findings. Magnesium was low at 1.6. Troponin negative at less than 0.012 with pro-BMP of 504. EKG completed showing normal sinus rhythm at 77 bpm with septal/lateral T-wave inversion in leads aVL and V1, and V2 with no signs of ST abnormalities upon personal review and interpretation. When compared to previous EKG completed on 08/27/22 T-wave inversions unchanged. Chest x-ray completed and upon personal review is showing hyperinflation consistent with COPD, but negative for acute cardiopulmonary process. CTA chest/abdomen/pelvis with runoff showing no evidence for aortic dissection, aneurysm, or acute process with signs of mild paraseptal emphysema and mild coronary artery atherosclerosis. Discussed in detail with the ED physician. Patient being admitted under our services with consultation to cardiology.Troponins trended overnight resulting at less than 0.012, less than 0.012, and 0.031. Once better control of blood pressures was obtained and hypertensive urgency was resolved patient reported full resolution of previous reported chest pain and had no further episodes. Patient was evaluated by cardiology recommending starting patient on aspirin and Lipitor and follow-up outpatient in their office for scheduling of outpatient stress testing. Patient was started on amlodipine 10 mg daily along with metoprolol 25 mg twice daily. Blood pressures much better controlled.. blood pressure 121/78 with heart rate of 65 upon discharge. Patient instructed she'll need to monitor her blood press ures closely at home twice daily and document these findings in a daily log to bring with her to her next doctor's appointment to enable additional changes/adjustments to current antihypertensive medication regimen. Physical exam: Vital signs reviewed and stable. General: Nontoxic, patient appears older than biological age. Disheveled appearance. Derm: Skin warm and dry, normal coloration for ethnicity. Multiple scab lee on face and extremities. Head: Atraumatic, normocephalic and symmetric. Eyes: EOMs intact, no lid lag, and anicteric sclera Mouth: no lip lesions, mucus membranes moist Cardiovascular: regular rate and rhythm with normal S1S2, systolic murmur, positive posterior tibial pulses bilaterally, and cap refill < 2 seconds. Lungs: Respirations even, regular, and unlabored on room air. Lungs CTA bilaterally, no rhonchi, no rales, no wheezing, and no accessory muscle usage. Abdominal: soft, nontender to palpation, no guarding, no appreciable organomegaly Ext: ROM intact. No gross muscle atrophy, no edema, no contractures Neuro: Speech clear, face symmetrical and CN II-XII grossly intact with no noted focal neuro deficits Psych: Alert and oriented to person, place, time, and situation. Patient appears jittery A total of 33 minutes of time were spent preparing this complex discharge summary. Pt was discharged on 12/12/22 at 9:49 AM Patient was seen independently by Nurse Practitioner. This document was prepared using [employer] dictation software. Please allow for errors in biztalk consultant while rare they do occur. Patient Condition at Discharge: Stable Plan - Discharge Summary Discharge Rx Participant: No New Discharge Prescriptions: New Metoprolol Tartrate [Lopressor] 25 mg PO BID 30 Days #60 tab amLODIPine [Norvasc] 10 mg PO DAILY 30 Days #30 tab Aspirin 81 mg PO DAILY 30 Days #30 tab Atorvastatin [Lipitor] 20 mg PO HS 30 Days #30 tab Discontinued Aspirin 325 mg PO Q4H PRN PRN Reason: Pain Discharge Medication List Aspirin 81 mg PO DAILY 30 Days #30 tab 12/12/22 [Rx] Atorvastatin [Lipitor] 20 mg PO HS 30 Days #30 tab 12/12/22 [Rx] Metoprolol Tartrate [Lopressor] 25 mg PO BID 30 Days #60 tab 12/12/22 [Rx] amLODIPine [Norvasc] 10 mg PO DAILY 30 Days #30 tab 12/12/22 [Rx] Follow up Appointment(s)/Referral(s): Felice Morel MD [STAFF PHYSICIAN] - 3 Weeks (Office will call patient with appointment date and time) Rodrick Mtz MD [STAFF PHYSICIAN] - 1 Week Patient Instructions/Handouts: Hypertensive Crisis (DC) Activity/Diet/Wound Care/Special Instructions: Activity: As tolerated. Take breaks as needed. Diet: Heart healthy and carb consistent diet. Avoid salts, or foods with hidden salts such as canned or boxed foods and frozen dinners. Extra salt makes your heart work harder and traps the fluid in your body for longer. Special Instructions: Take all of your medications as directed and remember to keep all of your doctor's appointments and follow-up as needed. Strongly recommend monitoring your blood pressures at home twice daily once in the morning and again in the evening and documenting these results in a daily log/journal to bring with you to your next doctor's appointment as adjustments may be needed to your current blood pressure medication regimen. Thank you for allowing us to participate in your care, it was truly a pleasure having you for our patient!!! Discharge Disposition: HOME SELF-CARE
[2022-12-12] MEDS ORDERED: ATORVASTATIN 20 MG TAB PO SCH (21:00)
== END 2022-12-12 10:42 | disposition home or self-care (01) ==
LOC: EC 07:13 → 6NMEDSUR 10:17 → 3SCARD 14:32 → 6NMEDSUR 15:02
PROVIDERS: ADMIT Family Medicine; ATTEND Family Medicine
DX: R07.89 Other chest pain (principal); I16.0 Hypertensive urgency; J43.8 Other emphysema; E83.42 Hypomagnesemia; I25.10 Atherosclerotic heart disease of native coronary artery without angina pectoris; I10 Essential (primary) hypertension; E78.5 Hyperlipidemia, unspecified; F10.10 Alcohol abuse, uncomplicated; H91.91 Unspecified hearing loss, right ear; R55 Syncope and collapse; R91.1 Solitary pulmonary nodule; F32.A Depression, unspecified; F41.9 Anxiety disorder, unspecified; F17.200 Nicotine dependence, unspecified, uncomplicated; Z91.141 Patient's other noncompliance with medication regimen due to financial hardship; Z87.828 Personal history of other (healed) physical injury and trauma; Z95.5 Presence of coronary angioplasty implant and graft; Z98.890 Other specified postprocedural states; Z83.2 Family history of diseases of the blood and blood-forming organs and certain disorders involving the immune mechanism
CPT/HCPCS: 96376; 96372; 96365; 96375; 99285; 36415; 94640 ×2; 94760; 93005; 93306; 85379; 83880; 80061; 80053; 83690; 83735; 84484; 85025; 85610; 85730; 80306 ×2; 71046; 71275; 74174; G0378 ×2; S4990; J2270; J2405 ×2; J1650; J3475; Q9967

== ENCOUNTER 2022-12-13 03:26 | Observation (INO) | payer OTHER ==
[2022-12-13] MEDS ORDERED: MORPHINE SULFATE 4 MG/ML SYRINGE IVP STA (03:43)
[2022-12-13 04:03] LABS: Basophils % (A) 0 %; Eosinophils # (A) 0.4 k/uL (0-0.7); Eosinophils % (A) 4 %; HCT 49.2 % (34.0-46.0); HGB 16.7 gm/dL (11.4-16.0); Lymphocytes # (A) 2.9 k/uL (1.0-4.8); Lymphocytes % (A) 27 %; MCH 32.9 pg (25.0-35.0); MCHC 33.9 g/dL (31.0-37.0); Mean Platelet Volume 7.8; Monocytes # (A) 0.6 k/uL (0-1.0); Monocytes % (A) 5 %; Neutrophils # (A) 6.6 k/uL (1.3-7.7); Neutrophils % (A) 62 %; Platelet Count 273 k/uL (150-450); RBC 5.07 m/uL (3.80-5.40); RDW 13.6 % (11.5-15.5); WBC 10.6 k/uL (3.8-10.6)
[2022-12-13] MEDS ORDERED: ONDANSETRON 4 MG/2 ML VIAL IVP STA (04:05)
[2022-12-13 04:07] LABS: Prothrombin Time 10.7 sec (9.0-12.0)
[2022-12-13 04:14] LABS: ALT 19 U/L (4-34); AST 25 U/L (14-36); African American GFR (CKD) >90 (>60 ml/min/1.73 sqM); Albumin 4.4 g/dL (3.5-5.0); Alkaline Phosphatase 99 U/L (38-126); Anion Gap 14 mmol/L; Blood Urea Nitrogen 12 mg/dL (7-17); Calcium 9.6 mg/dL (8.4-10.2); Carbon Dioxide 21 mmol/L (22-30); Chloride 100 mmol/L (98-107); Glucose 143 mg/dL (74-99); Lipase 76 U/L (23-300); Magnesium 1.8 mg/dL (1.6-2.3); Non-African American GFR(CKD) >90 (>60 ml/min/1.73 sqM); Potassium 3.8 mmol/L (3.5-5.1); Sodium 135 mmol/L (137-145); Total Protein 7.3 g/dL (6.3-8.2)
--- NOTE | 2022-12-13 04:53 | ED ---
General Adult HPI - General Chief complaint: Chest Pain Stated complaint: Chest pain Time Seen by Provider: 12/13/22 03:31 Source: patient, family, RN notes reviewed, old records reviewed Mode of arrival: wheelchair Limitations: no limitations - History of Present Illness Initial comments: 62-year-old female presenting for reevaluation. Patient was seen and admitted over the past several days as a chest pain rule out. She states her symptoms began again which is really lower chest, epigastric discomfort. She has had some episodes of vomiting associated with this pain. She's had multiple similar episodes in the past. Patient denies diaphoresis. She was admitted and have serial cardiac enzymes as well as cardiology consultation within the past 48 hours. - Related Data Previous Rx's Medication Instructions Recorded Aspirin 81 mg PO DAILY 30 Days #30 tab 12/12/22 Atorvastatin [Lipitor] 20 mg PO HS 30 Days #30 tab 12/12/22 Metoprolol Tartrate [Lopressor] 25 mg PO BID 30 Days #60 tab 12/12/22 amLODIPine [Norvasc] 10 mg PO DAILY 30 Days #30 tab 12/12/22 Allergies Allergy/AdvReac Type Severity Reaction Status Date / Time No Known Allergies Allergy Verified 12/11/22 10:16 Review of Systems ROS Statement: Those systems with pertinent positive or pertinent negative responses have been documented in the HPI. ROS Other: All systems not noted in ROS Statement are negative. Past Medical History Past Medical History: Hearing Disorder / Deafness, Myocardial Infarction ([place]) Additional Past Medical History / Comment(s): STATES WT LOSS OF 40 # OVER LAST 7 MONTHS, POOR APPETITE , FATIGUE., NODULE ON LUNG. , PARTIALLY DEAF RIGHT EAR., STATES 3 LOOSE TEETH ., STATES HX OF FALL & INJURED LEFT KNEE AND RIGHT WRIST (10/2017)-STATES LIMPING, & CANNOT USE RIGHT WRIST. Last Myocardial Infarction Date:: na History of Any Multi-Drug Resistant Organisms: None Reported Past Surgical History: Heart Catheterization With Stent Additional Past Surgical History / Comment(s): D & C Past Anesthesia/Blood Transfusion Reactions: No Reported Reaction Past Psychological History: Anxiety, Depression Smoking Status: Current every day smoker Past Alcohol Use History: Heavy Past Drug Use History: Marijuana - Past Family History Mother Family Medical History: Blood Disorder Additional Family Medical History / Comment(s): PROTEIN C - DEFICIENCY. Daughter(s) Family Medical History: Blood Disorder Additional Family Medical History / Comment(s): UNKNOWN NAME OF BLOOD DISORDER. General Exam Limitations: no limitations General appearance: alert, in no apparent distress Head exam: Present: atraumatic, normocephalic Eye exam: Present: normal appearance, PERRL ENT exam: Present: normal exam Neck exam: Present: normal inspection. Absent: tenderness, meningismus Respiratory exam: Present: normal lung sounds bilaterally. Absent: respiratory distress, wheezes Cardiovascular Exam: Present: regular rate, normal rhythm GI/Abdominal exam: Present: soft, tenderness (Epigastric). Absent: distended Extremities exam: Present: normal inspection, normal capillary refill. Absent: pedal edema Neurological exam: Present: alert, oriented X3, CN II-XII intact. Absent: motor sensory deficit Psychiatric exam: Present: normal affect, normal mood Skin exam: Present: warm, dry, intact. Absent: cyanosis, diaphoretic Course Vital Signs 12/13/22 12/13/22 12/13/22 03:29 03:52 04:31 Temperature 97.2 F L Pulse Rate 101 H 67 Pulse Rate [ 111 H Gastroenterology Nurse Practitioner ] Respiratory 22 18 Rate Blood Pressure 151/91 208/110 O2 Sat by Pulse 99 95 Oximetry 12/13/22 12/13/22 06:00 06:31 Temperature Pulse Rate 67 78 Pulse Rate [ Gastroenterology Nurse Practitioner ] Respiratory 20 18 Rate Blood Pressure 159/100 150/89 O2 Sat by Pulse 98 98 Oximetry Medical Decision Making - Medical Decision Making Was pt. sent in by a medical professional or institution (, PA, [employer]MINIST[employer]IVE [employer], urgent care, hospital, or penitentiary...) When possible be specific @ -[No] Did you speak to anyone other than the patient for history (EMS, parent, family, police, friend...)? What history was obtained from this source @ -[Patient's Did you review nursing and triage notes (agree or disagree)? Why? @ -[I reviewed and agree with nursing and triage notes] Were old charts reviewed (outside hosp., previous admission, EMS record, old EKG, old radiological studies, urgent care reports/EKG's, penitentiary records)? Report findings @ -[No old charts were reviewed] Differential Diagnosis (chest pain, altered mental status, abdominal pain women, abdominal pain men, vaginal bleeding, weakness, fever, dyspnea, syncope, headache, dizziness, GI bleed, back pain, seizure, CVA, palpatations, mental health, musculoskeletal)? @ -Differential Chest Pain: Stable Angina, Unstable Angina, STEMI, NSTEMI Aortic Dissection, Pneumothorax, Musculoskeletal, Esophageal Spasm GERD, Cholecystitis, Pancreatitis, Zoster, this is not meant to be an all-inclusive list. EKG interpreted by me (3pts min.). @ -[EKG: Sinus rhythm rate of 79, IN interval 119, QRS duration 93, QTC 421, no ST segment elevation. X-rays interpreted by me (1pt min.). @ Chest x-ray reviewed by myself, COPD with hyperinflation, no focal pneumonia, no pneumothorax CT interpreted by me (1pt min.). @ -[None done] U/S interpreted by me (1pt. min.). @ -[None done] What testing was considered but not performed or refused? (CT, X-rays, U/S, labs)? Why? @ -[None] What meds were considered but not given or refused? Why? @ -[None] Did you discuss the management of the patient with other professionals (professionals i.e. , PA, [employer], lab, RT, psych nurse, social professionals, clin nurse spec, teacher, ecological technical officer, case finisher)? Give summary @ [facility] physician group Was smoking cessation discussed for >3mins.? @ -[No] Was critical care preformed (if so, how long)? @ -[No] Were there social determinants of health that impacted care today? How? (Homelessness, low income, unemployed, alcoholism, drug addiction, transportation, low edu. Level, literacy, decrease access to med. care, fci, rehab)? @ -[No] Was there de-escalation of care discussed even if they declined (Discuss DNR or withdrawal of care, Hospice)? DNR status @ -[No] What co-morbidities impacted this encounter? (DM, HTN, Smoking, COPD, CAD, Cancer, CVA, ARF, Chemo, Hep., AIDS, mental health diagnosis, sleep apnea, morbid obesity)? @ -Hypertension, CAD Was patient admitted / discharged? Hospital course, mention meds given and route, prescriptions, significant lab abnormalities, going to OR and other pertinent info. @ -62-year-old female presenting for reevaluation of chest pain. Patient discharged yesterday after receiving workup for chest pain including chest x- ray, CT of the aorta, and serial cardiac enzymes. Her pain returned tonight and was severe. Minimal chest and epigastric. EKG sinus rhythm without ST segment elevation. Chest x-ray is clear. Given the similar recurrent nature of her symptoms I did not feel that repeat CT imaging was necessary at this time. Initial troponin negative in the emergency department. Patient will be kept in observation for serial cardiac enzymes, telemetry and cardiology consultation. Undiagnosed new problem with uncertain prognosis? @ -[No] Drug Therapy requiring intensive monitoring for toxicity (Heparin, Nitro, Insulin, Cardizem)? @ -[No] Were any procedures done? @ -[No] Diagnosis/symptom? @ -Chest pain Acute, or Chronic, or Acute on Chronic? @ Acute Uncomplicated (without systemic symptoms) or Complicated (systemic symptoms)? @ -[Complicated Side effects of treatment? @ -[No] Exacerbation, Progression, or Severe Exacerbation? @ -[No] Poses a threat to life or bodily function? How? (Chest pain, [place], [place], pneumonia, PE, COPD, DKA, ARF, appy, cholecystitis, CVA, Diverticulitis, Homicidal, Suicidal, threat to staff... and all critical care pts) @ -[Yes, chest pain - Lab Data Result diagrams: 12/13/22 03:50 12/13/22 03:50 Lab Results 12/13/22 12/13/22 12/13/22 Range/Units 03:50 03:50 03:50 WBC 10.6 (3.8-10.6) k/uL RBC 5.07 (3.80-5.40) m/uL Hgb 16.7 H (11.4-16.0) gm/dL Hct 49.2 H (34.0-46.0) % MCV 97.0 (80.0-100.0) fL MCH 32.9 (25.0-35.0) pg MCHC 33.9 (31.0-37.0) g/dL RDW 13.6 (11.5-15.5) % Plt Count 273 (150-450) k/uL MPV 7.8 Neutrophils % 62 % Lymphocytes % 27 % Monocytes % 5 % Eosinophils % 4 % Basophils % 0 % Neutrophils # 6.6 (1.3-7.7) k/uL Lymphocytes # 2.9 (1.0-4.8) k/uL Monocytes # 0.6 (0-1.0) k/uL Eosinophils # 0.4 (0-0.7) k/uL Basophils # 0.0 (0-0.2) k/uL PT 10.7 (9.0-12.0) sec INR 1.0 (<1.2) APTT 23.0 (22.0-30.0) sec Sodium 135 L (137-145) mmol/L Potassium 3.8 (3.5-5.1) mmol/L Chloride 100 (98-107) mmol/L Carbon Dioxide 21 L (22-30) mmol/L Anion Gap 14 mmol/L BUN 12 (7-17) mg/dL Creatinine 0.65 (0.52-1.04) mg/dL Est GFR (CKD-EPI)AfAm >90 (>60 ml/min/1.73 sqM) Est GFR (CKD-EPI)NonAf >90 (>60 ml/min/1.73 sqM) Glucose 143 H (74-99) mg/dL Calcium 9.6 (8.4-10.2) mg/dL Magnesium 1.8 (1.6-2.3) mg/dL Total Bilirubin 1.0 (0.2-1.3) mg/dL AST 25 (14-36) U/L ALT 19 (4-34) U/L Alkaline Phosphatase 99 (38-126) U/L Troponin I (0.000-0.034) ng/mL NT-Pro-B Natriuret Pep pg/mL Total Protein 7.3 (6.3-8.2) g/dL Albumin 4.4 (3.5-5.0) g/dL Lipase 76 (23-300) U/L 12/13/22 12/13/22 Range/Units 03:50 03:50 WBC (3.8-10.6) k/uL RBC (3.80-5.40) m/uL Hgb (11.4-16.0) gm/dL Hct (34.0-46.0) % MCV (80.0-100.0) fL MCH (25.0-35.0) pg MCHC (31.0-37.0) g/dL RDW (11.5-15.5) % Plt Count (150-450) k/uL MPV Neutrophils % % Lymphocytes % % Monocytes % % Eosinophils % % Basophils % % Neutrophils # (1.3-7.7) k/uL Lymphocytes # (1.0-4.8) k/uL Monocytes # (0-1.0) k/uL Eosinophils # (0-0.7) k/uL Basophils # (0-0.2) k/uL PT (9.0-12.0) sec INR (<1.2) APTT (22.0-30.0) sec Sodium (137-145) mmol/L Potassium (3.5-5.1) mmol/L Chloride (98-107) mmol/L Carbon Dioxide (22-30) mmol/L Anion Gap mmol/L BUN (7-17) mg/dL Creatinine (0.52-1.04) mg/dL Est GFR (CKD-EPI)AfAm (>60 ml/min/1.73 sqM) Est GFR (CKD-EPI)NonAf (>60 ml/min/1.73 sqM) Glucose (74-99) mg/dL Calcium (8.4-10.2) mg/dL Magnesium (1.6-2.3) mg/dL Total Bilirubin (0.2-1.3) mg/dL AST (14-36) U/L ALT (4-34) U/L Alkaline Phosphatase (38-126) U/L Troponin I <0.012 (0.000-0.034) ng/mL NT-Pro-B Natriuret Pep 105 pg/mL Total Protein (6.3-8.2) g/dL Albumin (3.5-5.0) g/dL Lipase (23-300) U/L Disposition Clinical Impression: Chest pain Disposition: ADMITTED IP TO THIS HOSP Condition: Stable Is patient prescribed a controlled substance at d/c from ED?: No Referrals: None,Stated [Primary Care Provider] - 1-2 days Time of Disposition: 06:54
[2022-12-13] MEDS ORDERED: METOCLOPRAMIDE 5 MG/ML 2 ML VIAL IVP STA (05:15)
[2022-12-13] MEDS ORDERED: HYDROmorphone 0.5 MG/0.5 ML SYRINGE IVP STA (05:15)
[2022-12-13] MEDS ORDERED: hydrALAZINE HCL 20 MG/ML 1 ML VIAL IVP STA (05:16)
--- NOTE | 2022-12-13 06:01 | XR ---
EXAM: XR Chest, 2 Views CLINICAL HISTORY: ITS.REASON XR Reason: Chest Pain TECHNIQUE: Frontal and lateral views of the chest. COMPARISON: 12/11/2022 FINDINGS: Lungs: Unremarkable. No consolidation. Pleural space: Unremarkable. No pneumothorax. Heart: Unremarkable. No cardiomegaly. Mediastinum: Unremarkable. Bones/joints: Unremarkable. IMPRESSION: Normal chest x-rays.
[2022-12-13] MEDS ORDERED: HYDROmorphone 0.5 MG/0.5 ML SYRINGE IVP PRN (06:50)
[2022-12-13] MEDS ORDERED: NALOXONE 0.4 MG/ML 1 ML VIAL IV PRN (06:50)
[2022-12-13] MEDS ORDERED: ONDANSETRON 4 MG/2 ML VIAL IVP PRN (06:50)
[2022-12-13] MEDS ORDERED: SODIUM CHLORIDE 0.9% 1,000 ML IV SCH (07:00)
[2022-12-13] MEDS ORDERED: ASPIRIN 325 MG TAB PO STA (07:06)
[2022-12-13] MEDS ORDERED: carvediloL 6.25 MG TAB PO SCH (08:30)
--- NOTE | 2022-12-13 08:43 | P.HPIM ---
History of Present Illness H&P Date: 12/13/22 History of Presenting Illness: Patient is a very pleasant 62-year-old female with a past medical history of CAD, hyperlipidemia, hypertension, nicotine dependence, marijuana use and EtOH abuse with reports of binge drinking behaviors approximately 1x per week. She was recently hospitalized 12/11/22 through 12/12/22 for reports of chest pain and hypertensive urgency. Patient was hospitalized overnight started on amlodipine 10 mg daily, metoprolol 25 mg twice daily, atorvastatin 20 mg daily, and aspirin 81 mg daily. Patient underwent full cardiac workup including completion of echocardiogram which revealed normal EF of 55-60% with no significant valvular or structural abnormalities reported. During this hospitalization patient's blood pressure was stabilized and she was discharged home on new medication regimen as listed above. Patient reports going home and feeling great but states she later developed return of previous reported chest pain so she returned to the emergency department. She reports chest pain is too midsternal chest and is described as a tightness and squeezing sensation from her epigastric region all the way up midsternal chest accompanied by gastric reflux and nausea. She continues to deny having any headache, lightheadedness, dizziness, palpitations, shortness of breath, cough or congestion, nausea, or experiencing any numbness/tingling/weakness/numbness in her extremities. Upon arrival to the emergency department patient's blood pressure 151/91, heart rate 101, respiratory rate 22, and SpO2 99% on room air. Labs completed and reviewed. CBC, coags, and CMP showing no significant abnormalities. Troponin negative at less than 0.012. ProBNP 105. Lipase also normal at 76. EKG was completed showing normal sinus rhythm at 79 bpm, chest x-ray also completed negative for acute cardiopulmonary process. Patient was admitted under our services and cardiology was consulted. Review of systems: Pertinent positives and negatives as discussed in HPI, a complete review of systems was performed and all other systems are negative. Physical exam: Vital signs reviewed and stable. General: Nontoxic, patient appears older than biological age. Disheveled appearance. Derm: Skin warm and dry, normal coloration for ethnicity. Multiple scab lee on face and extremities. Head: Atraumatic, normocephalic and symmetric. Eyes: EOMs intact, no lid lag, and anicteric sclera Mouth: no lip lesions, mucus membranes moist Cardiovascular: regular rate and rhythm with normal S1S2, systolic murmur, positive posterior tibial pulses bilaterally, and cap refill < 2 seconds. Lungs: Respirations even, regular, and unlabored on room air. Lungs CTA bilaterally, no rhonchi, no rales, no wheezing, and no accessory muscle usage. Abdominal: soft, nontender to palpation, no guarding, no appreciable organomegaly Ext: ROM intact. No gross muscle atrophy, no edema, no contractures Neuro: Speech clear, face symmetrical and CN II-XII grossly intact with no noted focal neuro deficits Psych: Alert and oriented to person, place, time, and situation. Patient appears jittery Assessment and Plan of Care: Chest pain, rule out acute coronary event Uncontrolled hypertension Concerns of possible substance abuse/withdrawal History of EtOH abuse -Upon arrival to the emergency department patient's blood pressure 151/91, heart rate 101, respiratory rate 22, and SpO2 99% on room air. -Labs completed and reviewed. CBC, coags, and CMP showing no significant abnormalities. Troponin negative at less than 0.012. ProBNP 105. Lipase also normal at 76. -EKG was completed showing normal sinus rhythm at 79 bpm -Chest x-ray also completed negative for acute cardiopulmonary process. -Discussed with ED physician and Patient was admitted under our services to observation unit with telemetry and cardiology was consulted. CODE STATUS: Full code DVT prophylaxis: Lovenox Discussed with: Patient, ED physician, and RN Anticipated discharge date: Clinical course to determine Anticipated discharge place: Home Patient was seen independently by Nurse Practitioner. This document was prepared using [employer] dictation software. Please allow for errors in film processing shift supervisor while rare they do occur. Past Medical History Past Medical History: Hearing Disorder / Deafness, Myocardial Infarction ([place]) Additional Past Medical History / Comment(s): STATES WT LOSS OF 40 # OVER LAST 7 MONTHS, POOR APPETITE , FATIGUE., NODULE ON LUNG. , PARTIALLY DEAF RIGHT EAR., STATES 3 LOOSE TEETH ., STATES HX OF FALL & INJURED LEFT KNEE AND RIGHT WRIST (10/2017)-STATES LIMPING, & CANNOT USE RIGHT WRIST. Last Myocardial Infarction Date:: na History of Any Multi-Drug Resistant Organisms: None Reported Past Surgical History: Heart Catheterization With Stent Additional Past Surgical History / Comment(s): D & C Past Anesthesia/Blood Transfusion Reactions: No Reported Reaction Past Psychological History: Anxiety, Depression Smoking Status: Current every day smoker Past Alcohol Use History: Heavy Past Drug Use History: Marijuana - Past Family History Mother Family Medical History: Blood Disorder Additional Family Medical History / Comment(s): PROTEIN C - DEFICIENCY. Daughter(s) Family Medical History: Blood Disorder Additional Family Medical History / Comment(s): UNKNOWN NAME OF BLOOD DISORDER. Medications and Allergies Home Medications Medication Instructions Recorded Confirmed Type Aspirin 81 mg PO DAILY 30 Days #30 tab 12/12/22 12/13/22 Rx Atorvastatin [Lipitor] 20 mg PO HS 30 Days #30 tab 12/12/22 12/13/22 Rx Metoprolol Tartrate [Lopressor] 25 mg PO BID 30 Days #60 tab 12/12/22 12/13/22 Rx amLODIPine [Norvasc] 10 mg PO DAILY 30 Days #30 tab 12/12/22 12/13/22 Rx Allergies Allergy/AdvReac Type Severity Reaction Status Date / Time No Known Allergies Allergy Verified 12/13/22 07:39 Physical Exam Vitals: Vital Signs Temp Pulse Pulse Resp BP Pulse Ox 12/13/22 07:29 98.1 F 97 17 149/102 99 12/13/22 06:31 78 18 150/89 98 12/13/22 06:00 67 20 159/100 98 12/13/22 04:31 67 18 208/110 95 12/13/22 03:52 111 H 12/13/22 03:29 97.2 F L 101 H 22 151/91 99 Intake and Output 12/12/22 12/13/22 12/13/22 22:59 06:59 14:59 Other: Weight 45.359 kg Results CBC & Chem 7: 12/13/22 03:50 12/13/22 03:50 Labs: Abnormal Lab Results - Last 24 Hours (Table) 12/13/22 12/13/22 Range/Units 03:50 03:50 Hgb 16.7 H (11.4-16.0) gm/dL Hct 49.2 H (34.0-46.0) % Sodium 135 L (137-145) mmol/L Carbon Dioxide 21 L (22-30) mmol/L Glucose 143 H (74-99) mg/dL
[2022-12-13] MEDS ORDERED: MAG HYDROX/AL HYDROX/SIMETH 30 ML, HYOSCYAMINE ELIXIR 10 ML, LIDOCAINE VISCOUS 10 ML PO ONE ×3 (08:48)
[2022-12-13] MEDS ORDERED: amLODIPine 10 MG TAB PO SCH (09:00)
--- NOTE | 2022-12-13 10:21 | P.CRDCN ---
History of Present Illness History of present illness: HISTORY OF PRESENT ILLNESS: This is a 62-year-old female with a past medical history significant for coronary artery disease, hypertension, hyperlipidemia, nicotine dependence, and alcohol abuse. Patient does not follow with a radar technician. We have been asked to see the patient in consultation for chest pain. Patient examined at the bedside. The patient was just admitted to the hospital on December 11 and discharged home yesterday for chest pain and uncontrolled hypertension. The patient presented back to the hospital with epigastric pain, nausea, and vomiting. Patient's blood pressure was found to be elevated again. She denies chest pain or shortness of breath. * EKG reveals sinus mechanism with T-wave inversions in V1V2, unchanged from previous EKG * Chest xray negative for acute process * Laboratory data: WBC 10.6. Hemoglobin 16.7. Platelet count 273. Sodium 135. Potassium 3.8. BUN 12. Creatinine 0.65. Magnesium 1.8. Troponin negative 3. ProBNP 105 * Current home cardiac medications include aspirin 81 mg daily, Lipitor 20 mg at night, metoprolol tartrate 25 mg twice a day, and amlodipine 10mg daily * Echocardiogram obtained in September 2021 revealed ejection fraction 45-50%, apical anterior and apical septal LV wall hypokinesis. * Repeat echocardiogram performed this admission reveals an ejection fraction 55-60% * Cardiac catheterization history: September [address] Xiong revealing mild coronary artery disease including 30% proximal LAD and mid 30% stenosis of RCA. Normal left-sided filling pressures. REVIEW OF SYSTEMS: At the time of my exam: CONSTITUTIONAL: Denies fever or chills. HEENT: Denies blurred vision, vision changes, or eye pain. Denies hemoptysis CARDIOVASCULAR: Denies chest pain. Denies orthopnea. Denies PND. Denies palpitations RESPIRATORY: Denies shortness of breath. GASTROINTESTINAL: Denies abdominal pain. Denies nausea or vomiting. HEMATOLOGIC: Denies bleeding disorders. GENITOURINARY: Denies any blood in urine. SKIN: Denies pruitis. Denies rash. PHYSICAL EXAM: VITAL SIGNS: Reviewed. GENERAL: Well-developed in no acute distress. HEENT: Head is normocephalic. Pupils are equal, round. Sclerae anicteric. Mucous membranes of the mouth are moist. Neck supple. No JVD or thyromegaly LUNGS: Respirations even and unlabored. Lungs essentially clear to auscultation bilaterally. HEART: Regular rate and rhythm. S1 and S2 heard. ABDOMEN: Soft. Nondistended. Nontender. EXTREMITIES: Normal range of motion. No clubbing or cyanosis. Peripheral pulses intact. No lower extremity edema NEUROLOGIC: Awake and alert. Oriented x 3. ASSESSMENT: Epigastric pain with nausea and vomiting Hypertensive urgency, improving Mild nonobstructive coronary artery disease History of hypertension Hyperlipidemia Nicotine dependence Alcohol abuse Medication noncompliance, secondary to financial issues, patient without insurance previously PLAN: No need to repeat echocardiogram as this was performed earlier this week Resume home cardiac medications Change metoprolol to carvedilol for optimal blood pressure control Patient's symptoms are epigastric pain with nausea and vomiting. Recommend GI/surgery consult. No further cardiac testing recommended on an inpatient basis Patient may follow up outpatient for outpatient stress testing when her blood pressure is better controlled We will sign off. Please reconsult if needed. Nurse practitioner note has been reviewed by physician. Signing provider agrees with the documented findings, assessment, and plan of care. Past Medical History Past Medical History: Hearing Disorder / Deafness, Myocardial Infarction ([place]) Additional Past Medical History / Comment(s): STATES WT LOSS OF 40 # OVER LAST 7 MONTHS, POOR APPETITE , FATIGUE., NODULE ON LUNG. , PARTIALLY DEAF RIGHT EAR., STATES 3 LOOSE TEETH ., STATES HX OF FALL & INJURED LEFT KNEE AND RIGHT WRIST (10/2017)-STATES LIMPING, & CANNOT USE RIGHT WRIST. Last Myocardial Infarction Date:: na History of Any Multi-Drug Resistant Organisms: None Reported Past Surgical History: Heart Catheterization With Stent Additional Past Surgical History / Comment(s): D & C Past Anesthesia/Blood Transfusion Reactions: No Reported Reaction Past Psychological History: Anxiety, Depression Smoking Status: Current every day smoker Past Alcohol Use History: Heavy Past Drug Use History: Marijuana - Past Family History Mother Family Medical History: Blood Disorder Additional Family Medical History / Comment(s): PROTEIN C - DEFICIENCY. Daughter(s) Family Medical History: Blood Disorder Additional Family Medical History / Comment(s): UNKNOWN NAME OF BLOOD DISORDER. Medications and Allergies Home Medications Medication Instructions Recorded Confirmed Type Aspirin 81 mg PO DAILY 30 Days #30 tab 12/12/22 12/13/22 Rx Atorvastatin [Lipitor] 20 mg PO HS 30 Days #30 tab 12/12/22 12/13/22 Rx Metoprolol Tartrate [Lopressor] 25 mg PO BID 30 Days #60 tab 12/12/22 12/13/22 Rx amLODIPine [Norvasc] 10 mg PO DAILY 30 Days #30 tab 12/12/22 12/13/22 Rx Allergies Allergy/AdvReac Type Severity Reaction Status Date / Time No Known Allergies Allergy Verified 12/13/22 07:39 Physical Exam Vitals: Vital Signs Temp Pulse Pulse Resp BP Pulse Ox 12/13/22 07:29 98.1 F 97 17 149/102 99 12/13/22 06:31 78 18 150/89 98 12/13/22 06:00 67 20 159/100 98 12/13/22 04:31 67 18 208/110 95 12/13/22 03:52 111 H 12/13/22 03:29 97.2 F L 101 H 22 151/91 99 Intake and Output 12/12/22 12/13/22 12/13/22 22:59 06:59 14:59 Other: Weight 45.359 kg Results 12/13/22 03:50 12/13/22 03:50 Cardiac Enzymes 12/13/22 12/13/22 12/13/22 Range/Units 03:50 03:50 06:00 AST 25 (14-36) U/L Troponin I <0.012 <0.012 (0.000-0.034) ng/mL Coagulation 12/13/22 Range/Units 03:50 PT 10.7 (9.0-12.0) sec APTT 23.0 (22.0-30.0) sec CBC 12/13/22 Range/Units 03:50 WBC 10.6 (3.8-10.6) k/uL RBC 5.07 (3.80-5.40) m/uL Hgb 16.7 H (11.4-16.0) gm/dL Hct 49.2 H (34.0-46.0) % Plt Count 273 (150-450) k/uL Comprehensive Metabolic Panel 12/13/22 Range/Units 03:50 Sodium 135 L (137-145) mmol/L Potassium 3.8 (3.5-5.1) mmol/L Chloride 100 (98-107) mmol/L Carbon Dioxide 21 L (22-30) mmol/L BUN 12 (7-17) mg/dL Creatinine 0.65 (0.52-1.04) mg/dL Glucose 143 H (74-99) mg/dL Calcium 9.6 (8.4-10.2) mg/dL AST 25 (14-36) U/L ALT 19 (4-34) U/L Alkaline Phosphatase 99 (38-126) U/L Total Protein 7.3 (6.3-8.2) g/dL Albumin 4.4 (3.5-5.0) g/dL Current Medications Generic Name Dose Route Start Last Admin Trade Name Freq PRN Reason Stop Dose Admin Amlodipine Besylate 10 mg 12/13/22 09:00 Amlodipine 10 Mg Tab PO DAILY [facility] Aspirin 81 mg 12/13/22 09:00 Aspirin 81 Mg PO DAILY [facility] Atorvastatin Calcium 20 mg 12/13/22 21:00 Atorvastatin 20 Mg Tab PO HS [facility] Carvedilol 6.25 mg 12/13/22 08:30 Carvedilol 6.25 Mg Tab PO BID-W/MEALS [facility] Hydromorphone HCl 0.5 mg 12/13/22 06:50 Hydromorphone 0.5 Mg/0.5 Ml Syringe IVP Q3HR PRN Moderate Pain (Scale 4 to 6) Sodium Chloride 1,000 mls @ 75 mls/hr 12/13/22 07:00 12/13/22 06:55 Saline 0.9% IV 75 mls/hr .[id number] KEN Administration Naloxone HCl 0.2 mg 12/13/22 06:50 Naloxone 0.4 Mg/Ml 1 Ml Vial IV Q2M PRN Opioid Reversal Ondansetron HCl 4 mg 12/13/22 06:50 Ondansetron 4 Mg/2 Ml Vial IVP Q8HR PRN Nausea And Vomiting Intake and Output 12/12/22 12/13/22 12/13/22 22:59 06:59 14:59 Other: Weight 45.359 kg 12/13/22 03:50 12/13/22 03:50
--- NOTE | 2022-12-13 13:47 | CT ---
EXAMINATION TYPE: CT abdomen w con CT DLP: 258.6 mGycm, Automated exposure control for dose reduction was used. DATE OF EXAM: 12/13/2022 11:05 AM COMPARISON: 12/11/2022 CT Angio CLINICAL INDICATION:Female, 62 years old with history of epigastric pain and tenderness w/ N/V; Epiga stric abdominal pain, nausea and vomiting. TECHNIQUE: Axial CT of the abdomen and pelvis. Sagittal and coronal reformats were created on a [employer] workstation. Contrast used:100ml mL of Isovue 300 with IV Contrast, Oral contrast used: without Oral Contrast FINDINGS: LOWER CHEST: Unremarkable ABDOMEN LIVER: Unremarkable GALLBLADDER AND BILE DUCTS: Unremarkable. PANCREAS: Unremarkable. SPLEEN: Unremarkable. ADRENAL GLANDS: Unremarkable. KIDNEYS AND URETERS: No evidence of hydronephrosis or renal calculus. The ureters are unremarkable. STOMACH AND BOWEL: No evidence of bowel obstruction. The appendix is normal PERITONEUM/RETROPERITONEUM: No evidence of pneumoperitoneum or free fluid. VASCULATURE: Mild atherosclerotic calcifications are present throughout the abdominal aorta and its b ranches. No evidence of aortic aneurysm. MUSCULOSKELETAL: No acute osseous abnormalities. Mild disc degeneration changes are present throughou t the thoracolumbar spine. LYMPH NODES: No gross evidence for lymphadenopathy. SOFT TISSUE/ABDOMINAL WALL: Unremarkable IMPRESSION: No significant change from 2 days prior. No acute abdominal process to explain the patient's pain.
[2022-12-13 14:18] VITALS: BP 160/76; PULSE 87; RESP 16; TEMP 98.2
--- NOTE | 2022-12-13 15:38 | P.DS ---
Providers Date of admission: 12/13/22 06:50 Expected date of discharge: 12/13/22 Attending physician: Alondra Shoemaker MD Consults: 12/13/22 06:50 Consult Physician Routine Consulting Provider: Tony Xiong Consult Reason/Comments: CP Do you want consulting provider notified?: Yes Primary care physician: Stated None Hospital Course: Discharge Diagnosis: Chest pain, acute coronary event ruled out Uncontrolled hypertension Concerns of possible substance abuse/withdrawal History of EtOH abuse Hospital Course: Patient is a very pleasant 62-year-old female with a past medical history of CAD, hyperlipidemia, hypertension, nicotine dependence, marijuana use and EtOH abuse with reports of binge drinking behaviors approximately 1x per week. She was recently hospitalized 12/11/22 through 12/12/22 for reports of chest pain and hypertensive urgency. Patient was hospitalized overnight started on amlodipine 10 mg daily, metoprolol 25 mg twice daily, atorvastatin 20 mg daily, and aspirin 81 mg daily. Patient underwent full cardiac workup including completion of echocardiogram which revealed normal EF of 55-60% with no significant valvular or structural abnormalities reported. During this hospitalization patient's blood pressure was stabilized and she was discharged home on new medication regimen as listed above. Patient reports going home and feeling great but states she later developed return of previous reported chest pain so she returned to the emergency department. She reports chest pain is too midsternal chest and is described as a tightness and squeezing sensation from her epigastric region all the way up midsternal chest accompanied by gastric reflux and nausea. She continues to deny having any headache, lightheadedness, dizziness, palpitations, shortness of breath, cough or congestion, nausea, or experiencing any numbness/tingling/weakness/numbness in her extremities. Upon arrival to the emergency department patient's blood pressure 151/91, heart rate 101, respiratory rate 22, and SpO2 99% on room air. Labs completed and reviewed. CBC, coags, and CMP showing no significant abnormalities. Troponin negative at less than 0.012. ProBNP 105. Lipase also normal at 76. EKG was completed showing normal sinus rhythm at 79 bpm, chest x-ray also completed negative for acute cardiopulmonary process. Patient was admitted under our services and cardiology was consulted. CT abdomen and pelvis with contrast was completed and radiology report reviewed showing unremarkable gallbladder and bile ducts and negative for acute intra-abdominal abnormalities. Patient given GI cocktail consisting of Maalox, lidocaine, and hyoscalamine. Troponins were trended and all were negative at less than 0.012 times for draws. Patient was evaluated by cardiology, they recommended discontinuation of metoprolol and starting patient on carvedilol for optimal blood pressure control and stated no need for further inpatient cardiac workup recommending patient follow-up outpatient in their office for scheduling of stress testing once blood pressures are better controlled. Medically, patient is stable at this time. Patient stable for discharge home and to follow up outpatient as discussed with PCP and exhaust emissions inspector. Physical exam: Vital signs reviewed and stable. General: Nontoxic, patient appears older than biological age. Disheveled appearance. Derm: Skin warm and dry, normal coloration for ethnicity. Multiple scab lee on face and extremities. Head: Atraumatic, normocephalic and symmetric. Eyes: EOMs intact, no lid lag, and anicteric sclera Mouth: no lip lesions, mucus membranes moist Cardiovascular: regular rate and rhythm with normal S1S2, systolic murmur, positive posterior tibial pulses bilaterally, and cap refill < 2 seconds. Lungs: Respirations even, regular, and unlabored on room air. Lungs CTA bilaterally, no rhonchi, no rales, no wheezing, and no accessory muscle usage. Abdominal: soft, nontender to palpation, no guarding, no appreciable organomegaly Ext: ROM intact. No gross muscle atrophy, no edema, no contractures Neuro: Speech clear, face symmetrical and CN II-XII grossly intact with no noted focal neuro deficits Psych: Alert and oriented to person, place, time, and situation. Patient appears jittery A total of 32 minutes of time were spent preparing this complex discharge summary. Pt was discharged on 12/13/22 at 3:45 PM Patient was seen independently by Nurse Practitioner. This document was prepared using [employer] dictation software. Please allow for errors in steward/stewardess room while rare they do occur. Patient Condition at Discharge: Stable Plan - Discharge Summary New Discharge Prescriptions: New carvediloL [Coreg] 6.25 mg PO BID-W/MEALS 30 Days #60 tab Continue amLODIPine [Norvasc] 10 mg PO DAILY 30 Days #30 tab Aspirin 81 mg PO DAILY 30 Days #30 tab Atorvastatin [Lipitor] 20 mg PO HS 30 Days #30 tab Discontinued Metoprolol Tartrate [Lopressor] 25 mg PO BID 30 Days #60 tab Discharge Medication List Aspirin 81 mg PO DAILY 30 Days #30 tab 12/12/22 [Rx] Atorvastatin [Lipitor] 20 mg PO HS 30 Days #30 tab 12/12/22 [Rx] amLODIPine [Norvasc] 10 mg PO DAILY 30 Days #30 tab 12/12/22 [Rx] carvediloL [Coreg] 6.25 mg PO BID-W/MEALS 30 Days #60 tab 12/13/22 [Rx] Follow up Appointment(s)/Referral(s): Felice Morel MD [STAFF PHYSICIAN] - 1 Week Rodrick Mtz MD [STAFF PHYSICIAN] - 1 Week Activity/Diet/Wound Care/Special Instructions: Activity: As tolerated. Take breaks as needed. Diet: Heart healthy and carb consistent diet. Avoid salts, or foods with hidden salts such as canned or boxed foods and frozen dinners. Extra salt makes your heart work harder and traps the fluid in your body for longer. Special Instructions: Take all of your medications as directed and remember to keep all of your doctor's appointments and follow-up as needed. Thank you for allowing us to participate in your care, it was truly a pleasure having you for our patient!!! Discharge Disposition: HOME SELF-CARE
[2022-12-13] MEDS ORDERED: ATORVASTATIN 20 MG TAB PO SCH (21:00)
[2022-12-14] MEDS ORDERED: ASPIRIN 81 MG PO SCH (09:00)
== END 2022-12-13 14:50 | disposition home or self-care (01) ==
LOC: EC 03:26 → 6NMEDSUR 06:50
PROVIDERS: ADMIT Internal Medicine; ATTEND Internal Medicine
DX: R07.89 Other chest pain (principal); I16.0 Hypertensive urgency; R10.13 Epigastric pain; R11.2 Nausea with vomiting, unspecified; F10.10 Alcohol abuse, uncomplicated; I25.10 Atherosclerotic heart disease of native coronary artery without angina pectoris; I10 Essential (primary) hypertension; J44.9 Chronic obstructive pulmonary disease, unspecified; E78.5 Hyperlipidemia, unspecified; K21.9 Gastro-esophageal reflux disease without esophagitis; R91.1 Solitary pulmonary nodule; K08.89 Other specified disorders of teeth and supporting structures; R63.4 Abnormal weight loss; Z68.1 Body mass index [BMI] 19.9 or less, adult; R63.0 Anorexia; R53.83 Other fatigue; H91.91 Unspecified hearing loss, right ear; I25.2 Old myocardial infarction; F32.A Depression, unspecified; F41.9 Anxiety disorder, unspecified; F17.200 Nicotine dependence, unspecified, uncomplicated; Z91.151 Patient's noncompliance with renal dialysis due to financial hardship; Z79.82 Long term (current) use of aspirin; Z79.899 Other long term (current) drug therapy; Z87.828 Personal history of other (healed) physical injury and trauma; Z95.5 Presence of coronary angioplasty implant and graft; Z98.890 Other specified postprocedural states; Z83.2 Family history of diseases of the blood and blood-forming organs and certain disorders involving the immune mechanism
CPT/HCPCS: 96374; 96375; 99285; 36415; 93005; 83880; 80053; 83690; 83735; 84484; 85025; 85610; 85730; 71046; 74160; G0378; J2270; J0360; J2765; J2405; J1170; Q9967

== ENCOUNTER → 2023-04-12 | Outpatient (CLI) | payer OTHER ==
--- NOTE | 2023-04-12 12:30 | CA ---
Stress Echo Report Verna Celaya Age: 63 Gender: F : 1960 Exam Date: 04/12/2023 10:09 Exam Location: [place] Stress Ht (in): 64 Wt (lb): 105 Ordering Physician: Tony Xiong DO Referring Physician: ELLIOT,, Automotive Production Worker: Jacqueline Diaz RDCS Technologist Procedure CPT: Indication: I10 HYPERTENSION ICD-9 Codes: Rhythm: Patient History: Atypical angina, Dyspnea/SOB, Hypertension, Hyperlipidemia, Smoker,COPD Cardiac Medications: Medications in past 24 hours: Contrast: Stress Results Protocol: Doni Total dose(mL): Exercise Duration (min:sec): Max ST Depression (mm): Angina Score: Carmona Score: METS: 6.6 Resting HR: 99 Resting BP: 132 / 84 Peak HR: 153 Peak BP: 212 / 109 Max Predicted HR: 156 98 % Max Predicted HR Target HR: 133 Double Product: [id number] Stress Summary: BP Response: Reason for Termination: Reached target heart rate or work-load Cardiac Symptoms: ECG Analysis Resting ECG: Stress ECG: Arrhythmia: Echo Analysis Resting Echo: Peak Echo Analysis: MEASUREMENTS (Male/Female) Normal Values CONCLUSIONS Patient underwent exercise stress echo with a Doni protocol treadmill stress test. Patient exercised into Stage 2 for a total of 4 minutes and 48 seconds reaching a total of 6.6 METS. Patient's maximum heart rate was 153 which represented 98% age- predicted maximum heart rate. Stress EKG portion: At baseline patient's EKG showed normal sinus rhythm, no ST or T wave abnormalities. At peak exercise, EKG showed no change from baseline. Stress echo portion: 2-D echocardiogram was performed in the parasternal long, personal short, apical 2 and apical four-chamber views at rest, peak exercise and in recovery. At baseline, echocardiogram showed left ventricular ejection fraction 55% without wall motion abnormalities. With peak exercise, echocardiogram shows improvement in left ventricular ejection fraction, increase contractility, decrease in left ventricular end systolic dimension without wall motion abnormalities consistent with a normal response to exercise. Conclusions: 1. Normal EKG and echo response to exercise without evidence of inducible ischemia. 2. Poor exercise capacity. Dr. Tony Xiong DO (Electronically Signed) Final Date: 12 April 2023 12:29
== END | disposition home or self-care (01) ==
LOC: RADNMMAIN 07:49
PROVIDERS: ATTEND Internal Medicine
DX: I10 Essential (primary) hypertension (principal); R07.9 Chest pain, unspecified
CPT/HCPCS: 93351

== ENCOUNTER → 2023-08-13 | Outpatient (CLI) | payer OTHER | LOC: CPPFTMAIN 07:27 | PROVIDERS: ATTEND Family Medicine | DX: J44.9 Chronic obstructive pulmonary disease, unspecified (principal); F12.90 Cannabis use, unspecified, uncomplicated; Z87.891 Personal history of nicotine dependence | CPT/HCPCS: 94060; 94726; 94729 ==

== ENCOUNTER → 2023-10-15 | Outpatient (CLI) | payer OTHER ==
--- NOTE | 2023-10-20 08:23 | CTL ---
EXAMINATION TYPE: CT Low Dose Lung DATE OF EXAM: 10/15/2023 7:13 AM CLINICAL INDICATION:Female, 63 years old with history of Z12.2 SCREENING LUNG CA Z87.891 FORMER SMOKE R; Lung CA screening , history of tobacco use. COMPARISON: CT studies 12/11/2022 and 08/16/2017 TECHNIQUE: CT scan of the chest obtained without contrast from approximately the lung apices through the upper abdomen. Axial, coronal and sagittal reformatted images were obtained. Low dose technique w as utilized for nodule screening purposes. CT DLP: 43.2 mGycm, Automated exposure control for dose reduction was used. CT Contrast: IV contrast used: None. Oral contrast used: None. FINDINGS: Lack of intravenous contrast and low dose technique limits the evaluation of the vascular and soft ti ssue structures. LUNGS: Moderate upper lobe predominant emphysematous changes. Mild interstitial thickening and mostly peripheral fibrotic changes. No acute consolidation. NODULES: A 3 mm subpleural nodule in the right upper lobe image 88 series 4 is stable since 2018. No new or en larging significant nodules. PLEURA: No sizeable pleural effusion or pneumothorax. AIRWAY: Central airways are patent. LOWER NECK: No significant findings. MEDIASTINUM: No evidence of enlarged mediastinal or hilar nodes, in the limits of noncontrast exam.. HEART: Normal heart size. Mild/moderate calcification of the coronary arteries bilaterally.. No appre ciable pericardial effusion. VASCULATURE: Mild to moderate atherosclerotic calcifications of the aorta and branches 3 vessel bran ch pattern.. Ascending aorta is 2.7 CM, descending is 2.1 CM. Pulmonary trunk measures 2 CM, normal i n size. Vessels otherwise not further assessed without contrast. SOFT TISSUES/LYMPH NODES: Unremarkable soft tissues. No axillary adenopathy. UPPER ABDOMEN: No significant findings. MUSCULOSKELETAL: No acute osseous abnormalities. Mild degenerative change of the thoracic spine. IMPRESSION: 1. Stable exam. No clinically significant pulmonary nodules. 2. Moderate emphysematous changes. 3. Mild interstitial thickening/fibrosis. CT LUNG-RADS AND FOLLOWUP RECOMMENDATION: Lung-RADS Category 2, Benign. Based on imaging features or indolent behavior. Continue annual scree kelli with LDCT in 12 months. C Modifier (Personal history of lung cancer?): No. S Modifier (Other clinically significant or potentially significant findings?): No. Other significant or potentially significant abnormalities: None. Recommend smoking cessation (if current smoker), or continuation of smoking cessation (if prior smoke r). Annual screening for lung cancer with low-dose computed tomography is recommended in adults ages 55 to 77 years who have a 30 pack-year smoking history and currently smoke or have quit within the pa st 15 years. Screening should be discontinued once a person has not smoked for 15 years or develops a health problem that substantially limits life expectancy or the ability or willingness to have curat erica lung surgery. Lung-RADS v.2021 Link Here [email or web address]
== END | disposition home or self-care (01) ==
LOC: RADCTMAIN 06:46
PROVIDERS: ATTEND Family Medicine
DX: Z12.2 Encounter for screening for malignant neoplasm of respiratory organs (principal); J43.9 Emphysema, unspecified; J84.9 Interstitial pulmonary disease, unspecified; J84.10 Pulmonary fibrosis, unspecified; Z87.891 Personal history of nicotine dependence
CPT/HCPCS: 71271

== ENCOUNTER 2023-11-04 09:54 | Observation (INO) | payer OTHER ==
[2023-11-04 10:41] LABS: Basophils # (A) 0.1 k/uL (0-0.2); Basophils % (A) 1 %; Eosinophils # (A) 0.3 k/uL (0-0.7); Eosinophils % (A) 2 %; HCT 48.9 % (34.0-46.0); HGB 16.3 gm/dL (11.4-16.0); Lymphocytes % (A) 14 %; MCH 33.4 pg (25.0-35.0); MCHC 33.3 g/dL (31.0-37.0); MCV 100.4 fL (80.0-100.0); Mean Platelet Volume 7.6; Monocytes # (A) 0.5 k/uL (0-1.0); Monocytes % (A) 3 %; Neutrophils # (A) 11.7 k/uL (1.3-7.7); Neutrophils % (A) 79 %; Platelet Count 286 k/uL (150-450); RBC 4.87 m/uL (3.80-5.40); RDW 13.3 % (11.5-15.5); WBC 14.8 k/uL (3.8-10.6)
--- NOTE | 2023-11-04 10:51 | ED ---
Chest Pain HPI - General Chief Complaint: Chest Pain Stated Complaint: Chest pain, high BP Time Seen by Provider: 11/04/23 10:15 Source: patient Mode of arrival: wheelchair Limitations: no limitations - History of Present Illness Initial Comments: 63-year-old female who presents emergency department reporting chest pain. States that it started last night and awoke her from sleep. States that she feels mildly short of breath. Does admit to a chronic cough due to her COPD. The pain feels like a pressure sensation without radiation. She checked her blood pressure as she does every day and noticed that her blood pressure was high. She took a carvedilol. States that she is prescribed this medication however her primary care doctor told it to take only as needed. She did take 1 dose around 10:30 PM. Continued to have high blood pressure this morning and therefore took a half dose at 6 AM. She went into her primary care office to have laboratory studies drawn however because of her symptoms was transferred over to the emergency department for further evaluation. She does have history of a heart cath in 2021 that demonstrated some vascular calcifications however nothing obstructive. Patient also had a stress echo last year which was normal. Patient does arrive hypertensive blood pressure 174/105. No other alleviating, precipitating or modifying factors - Related Data Home Medications Medication Instructions Recorded Confirmed Albuterol Sulfate [Ventolin HFA] 2 puff INHALATION RT-Q4H PRN 11/04/23 11/04/23 Budesonide/Formoterol Fumarate 2 puff INHALATION RT-BID 11/04/23 11/04/23 [Symbicort 160-4.5 Mcg Inhaler] carvediloL [Coreg] 6.25 mg PO BID PRN 11/04/23 11/04/23 Allergies Allergy/AdvReac Type Severity Reaction Status Date / Time No Known Allergies Allergy Verified 11/04/23 11:50 Review of Systems ROS Statement: Those systems with pertinent positive or pertinent negative responses have been documented in the HPI. ROS Other: All systems not noted in ROS Statement are negative. Past Medical History Past Medical History: Hearing Disorder / Deafness, Myocardial Infarction (AR) Additional Past Medical History / Comment(s): STATES WT LOSS OF 40 # OVER LAST 7 MONTHS, POOR APPETITE , FATIGUE., NODULE ON LUNG. , PARTIALLY DEAF RIGHT EAR., STATES 3 LOOSE TEETH ., STATES HX OF FALL & INJURED LEFT KNEE AND RIGHT WRIST (10/2017)-STATES LIMPING, & CANNOT USE RIGHT WRIST. Last Myocardial Infarction Date:: na History of Any Multi-Drug Resistant Organisms: None Reported Past Surgical History: Heart Catheterization With Stent Additional Past Surgical History / Comment(s): D & C Past Anesthesia/Blood Transfusion Reactions: No Reported Reaction Past Psychological History: Anxiety, Depression Smoking Status: Current every day smoker Past Alcohol Use History: Heavy Past Drug Use History: Marijuana - Past Family History Mother Family Medical History: Blood Disorder Additional Family Medical History / Comment(s): PROTEIN C - DEFICIENCY. Daughter(s) Family Medical History: Blood Disorder Additional Family Medical History / Comment(s): UNKNOWN NAME OF BLOOD DISORDER. General Exam Limitations: no limitations General appearance: alert, in no apparent distress Head exam: Present: atraumatic, normocephalic, normal inspection Eye exam: Present: normal appearance, PERRL, EOMI. Absent: scleral icterus, conjunctival injection, periorbital swelling ENT exam: Present: normal exam, mucous membranes moist Neck exam: Present: normal inspection. Absent: tenderness, meningismus, lymphadenopathy Respiratory exam: Present: normal lung sounds bilaterally. Absent: respiratory distress, wheezes, rales, rhonchi, stridor Cardiovascular Exam: Present: regular rate, normal rhythm, normal heart sounds. Absent: systolic murmur, diastolic murmur, rubs, gallop, clicks GI/Abdominal exam: Present: soft, normal bowel sounds. Absent: distended, tenderness, guarding, rebound, rigid Extremities exam: Present: normal inspection, full ROM, normal capillary refill. Absent: tenderness, pedal edema, joint swelling, calf tenderness Back exam: Present: normal inspection Neurological exam: Present: alert, oriented X3, CN II-XII intact Psychiatric exam: Present: normal affect, normal mood Skin exam: Present: warm, dry, intact, normal color. Absent: rash Course Vital Signs 11/04/23 11/04/23 11/04/23 10:10 10:22 11:13 Temperature 98.2 F Pulse Rate 89 85 90 Respiratory 20 22 18 Rate Blood Pressure 174/105 186/106 139/95 O2 Sat by Pulse 98 98 97 Oximetry 11/04/23 12:00 Temperature Pulse Rate 85 Respiratory 23 Rate Blood Pressure 139/95 O2 Sat by Pulse 98 Oximetry Chest Pain MDM - MDM Was pt. sent in by a medical professional or institution ([facility], [facility] [employer], urgent care, hospital, or residential...) When possible be specific @ -No Did you speak to anyone other than the patient for history (EMS, parent, family, police, friend...)? What history was obtained from this source @ -No Did you review nursing and triage notes (agree or disagree)? Why? @ -I reviewed and agree with nursing and triage notes Were old charts reviewed (outside hosp., previous admission, EMS record, old EKG, old radiological studies, urgent care reports/EKG's, residential records)? Report findings @ -I reviewed the patient's heart cath from 2021 where she did have coronary calcifications Differential Diagnosis (chest pain, altered mental status, abdominal pain women, abdominal pain men, vaginal bleeding, weakness, fever, dyspnea, syncope, headache, dizziness, GI bleed, back pain, seizure, CVA, palpatations, mental health, musculoskeletal)? @ -Differential Chest Pain: Stable Angina, Unstable Angina, STEMI, NSTEMI Aortic Dissection, Pneumothorax, Musculoskeletal, Esophageal Spasm GERD, Cholecystitis, Pancreatitis, Zoster, this is not meant to be an all-inclusive list. EKG interpreted by me (3pts min.). @ -Yes and demonstrates sinus rhythm with a rate of 84. MA interval 119. QRS 87. QTc of 413. No acute ST segment elevations or depressions X-rays interpreted by me (1pt min.). @ -Yes and demonstrates no acute process CT interpreted by me (1pt min.). @ -None done U/S interpreted by me (1pt. min.). @ -None done What testing was considered but not performed or refused? (CT, X-rays, U/S, labs)? Why? @ -None What meds were considered but not given or refused? Why? @ -None Did you discuss the management of the patient with other professionals (professionals i.e. MICHAEL Eddy, [employer], lab, RT, psych nurse, social services coordinator, nutrition services aide, teacher, chief compliance officer, rifle case repairer)? Give summary @ -Spoke with Avery from [facility] who will admit patient Was smoking cessation discussed for >3mins.? @ -No Was critical care preformed (if so, how long)? @ -No Were there social determinants of health that impacted care today? How? (Homelessness, low income, unemployed, alcoholism, drug addiction, transportation, low edu. Level, literacy, decrease access to med. care, intermediate, rehab)? @ -No Was there de-escalation of care discussed even if they declined (Discuss DNR or withdrawal of care, Hospice)? DNR status @ -No What co-morbidities impacted this encounter? (DM, HTN, Smoking, COPD, CAD, Cancer, CVA, ARF, Chemo, Hep., AIDS, mental health diagnosis, sleep apnea, morbid obesity)? @ -Hypertension Was patient admitted / discharged? Hospital course, mention meds given and route, prescriptions, significant lab abnormalities, going to OR and other pertinent info. @ -Upon arrival patient was seen and evaluated in room 1. Thorough history and physical exam was performed. IV was established and laboratory studies are conducted. Chest x-ray was performed. Results are reviewed and discussed with the patient. Patient was given aspirin and nitro. She does have a heart score of 4. Because of this I did recommend admission for overnight observation. Patient was agreeable to this. Called and spoke with [facility] [place] [facility] who will admit the patient. Heart score of 4 Undiagnosed new problem with uncertain prognosis? @ -No Drug Therapy requiring intensive monitoring for toxicity (Heparin, Nitro, Insulin, Cardizem)? @ -No Were any procedures done? @ -No Diagnosis/symptom? @ -Acute chest pain, accelerated hypertension, possible ACS Acute, or Chronic, or Acute on Chronic? @ -Acute Uncomplicated (without systemic symptoms) or Complicated (systemic symptoms)? @ -Complicated Side effects of treatment? @ -No Exacerbation, Progression, or Severe Exacerbation? @ -No Poses a threat to life or bodily function? How? (Chest pain, USA, AR, pneumonia, PE, COPD, DKA, ARF, appy, cholecystitis, CVA, Diverticulitis, Homicidal, Suicidal, threat to staff... and all critical care pts) @ -No Disposition Clinical Impression: Chest pain, Accelerated hypertension Disposition: ADMITTED IP TO THIS HOSP Condition: Stable Is patient prescribed a controlled substance at d/c from ED?: No Time of Disposition: 11:35
[2023-11-04 11:00] LABS: ALT 17 U/L (4-34); AST 30 U/L (14-36); African American GFR (CKD) >90 (>60 ml/min/1.73 sqM); Albumin 4.5 g/dL (3.5-5.0); Alkaline Phosphatase 129 U/L (38-126); Anion Gap 12 mmol/L; Blood Urea Nitrogen 13 mg/dL (7-17); Calcium 9.5 mg/dL (8.4-10.2); Carbon Dioxide 22 mmol/L (22-30); Chloride 101 mmol/L (98-107); Glucose 111 mg/dL (74-99); Magnesium 1.5 mg/dL (1.6-2.3); Non-African American GFR(CKD) >90 (>60 ml/min/1.73 sqM); Partial Thromboplastin Time 22.3 sec (22.0-30.0); Potassium 4.5 mmol/L (3.5-5.1); Prothrombin Time 10.7 sec (10.0-12.5); Sodium 135 mmol/L (137-145); Total Bilirubin 1.1 mg/dL (0.2-1.3); Total Protein 7.2 g/dL (6.3-8.2)
[2023-11-04 11:07] LABS: NT-Pro-B-Type Natriuretic Pept 57 pg/mL
--- NOTE | 2023-11-04 11:10 | XR ---
EXAMINATION TYPE: XR chest 2V DATE OF EXAM: 11/04/2023 10:42 AM CLINICAL INDICATION:Female, 63 years old with history of Chest Pain; [facility] COMPARISON: 12/13/2022 TECHNIQUE: XR chest 2V Frontal and lateral views of the chest. FINDINGS: Lungs/Pleura: There is flattening of the diaphragm with increased lucency of the lungs. No evidence o f pneumothorax, pleural effusion or focal consolidation. Pulmonary vascularity: Unremarkable. Heart/mediastinum: Cardiomediastinal silhouette is unremarkable. Musculoskeletal: No acute osseous pathology. IMPRESSION: 1. No acute cardiopulmonary disease process. 2. COPD changes.
[2023-11-04] MEDS: MAGNESIUM SULFATE-D5W PMX 1 GM in DEXTROSE/WATER 1 100ML.BAG IVPB ONE (11:19)
[2023-11-04] MEDS ORDERED: NALOXONE 0.4 MG/ML 1 ML VIAL IV PRN (11:35)
[2023-11-04] MEDS: ASPIRIN 81 MG PO STA (11:43)
[2023-11-04] MEDS: NITROGLYCERIN SL TABS 0.4 MG TAB SUBLINGUAL STA (11:43)
[2023-11-04] MEDS ORDERED: ALBUTEROL NEBULIZED 2.5 MG/3 ML INHALATION PRN (13:16)
--- NOTE | 2023-11-04 13:16 | P.HPIM ---
History of Present Illness H&P Date: 11/04/23 History of Presenting Illness: Patient is a very pleasant 63-year-old female with a past medical history of CAD, hypertension, lung nodule, anxiety and depression, alcohol use/abuse, and COPD with continued nicotine dependence. She presented to the emergency department with a chief complaint of chest pain. Patient reports awakening last night around 10:30 PM with pain/pressure to her midsternal chest. Patient reports this pain awoken her from a sound sleep and she took her blood pressure and heart rate in which she reports blood pressure was 190's/120's and heart rate was 130's so she took her carvedilol and tried to lay back down. Patient reports this pain slowly began to improve and after approximately an hour seem to resolve. She reports the pain later returned and waxed and waned throughout the night and was again present this morning. Patient reports pain remained to midsternal chest radiating into the left anterior chest and into her back. She reports she again checked her blood pressure which remained elevated at 180/100 heart rate of 90 so she took a half a dose of her Coreg as she knew she had a scheduled appointment with her primary care doctor this morning. She reports she went to her appointment but while sitting in the waiting room waiting to go back to see her doctor she again experienced significant chest pain but this time was accompanied by dizziness/lightheadedness and felt as though she was going to pass out so she came to the emergency department for evaluation. Patient reports she has been cutting back on smoking cigarettes and is down to approximately 3 to 4 cigarettes daily, quit drinking alcohol and stopped smoking marijuana and instead consuming edibles to treat her anxiety. Patient denies any recent illnesses or exposure to known ill contacts, palpitations, shortness of breath, increased cough or congestion, abdominal pain, nausea, vomiting, or any other complaints. Upon arrival to the emergency department patient underwent evaluation. Vital signs upon arrival show blood pressure 174/105, heart rate 89, respiratory rate 20, temp 98.2 F, and SpO2 of 98% on room air. EKG was completed showing sinus rhythm at 84 bpm with T wave inversion in lateral lead aVL and no significant ST abnormality. Chest x-ray completed showing flattening of the diaphragm with increased lucency of the lungs consistent with COPD but negative for acute cardiopulmonary process. Labs completed and reviewed. CBC showing leukocytosis with WBC count of 14.8 and polycythemia with macrocytosis with hemoglobin of 16.3 and MCV of 100.4. Coagulation profile normal findings. BMP unremarkable. Glucose 111. Magnesium low at 1.5. Liver profile showing elevated alkaline phosphatase of 129 otherwise normal findings. Troponin was negative at less than 0.012 and proBNP of 57. Influenza A, influenza B, RSV, and COVID PCR were negative. Patient was admitted under services with consultation to cardiology. Patient currently reports chest pain resolved status post administration of sublingual nitro in the emergency department. Review of systems: Pertinent positives and negatives as discussed in HPI, a complete review of systems was performed and all other systems are negative. Physical exam: Vital signs reviewed and stable. General: Nontoxic, no distress and appears stated age. Derm: Skin warm and dry, normal coloration for ethnicity. Head: Atraumatic, normocephalic and symmetric. Eyes: EOMs intact, no lid lag, and anicteric sclera Mouth: no lip lesions, mucus membranes moist Cardiovascular: regular rate and rhythm with normal S1S2, no murmur, positive posterior tibial pulses bilaterally, and cap refill < 2 seconds. Lungs: Respirations even, regular, and unlabored on room air. Lungs CTA bilat erally, no rhonchi, no rales, no wheezing, and no accessory muscle usage. Abdominal: soft, nontender to palpation, no guarding, no appreciable organomegaly Ext: ROM intact. No gross muscle atrophy, no edema, no contractures Neuro: Speech clear, face symmetrical and CN II-XII grossly intact with no noted focal neuro deficits Psych: Alert and oriented to person, place, time, and situation. Appropriate and pleasant affect. Assessment and Plan of Care: Chest pain and presyncopal episode, rule out acute coronary event Leukocytosis and polycythemia with macrocytosis COPD with continued nicotine dependence, not in acute exacerbation Hypertension Coronary artery disease Anxiety with depression Previously known lung nodule History of alcohol abuse (states stopped drinking 8 months ago) -Cardiology consulted, appreciate recommendations -Telemetry monitoring -Trend troponins -Cardiac diet, NPO at midnight -Aspirin 81 mg daily, atorvastatin 40 mg daily, and carvedilol 6.25 mg twice daily -Order placed for sublingual nitroglycerin 0.4 mg every 5 minutes as needed for chest pain -Lipid profile with a.m. labs. -Echocardiogram to be completed -Order placed for nicotine patch 14 mg daily, patient counseled on smoking cessation. -Continue Symbicort 2 puffs twice daily and as needed albuterol nebulizers for s hortness of breath and/or wheezing. Data and imaging reviewed: As stated above in HPI The patient is admitted with an anticipated less than 2 midnight stay for evaluation of chest pain CODE STATUS: Full code DVT prophylaxis: Lovenox Anticipated discharge date: 24 to [address]: Home Patient was seen independently by Nurse Practitioner. This document was prepared using F[employer] dictation software. Please allow for errors in casting inspector while rare they do occur. I reviewed the documentation as provided by the PADDY above, who is the original author of this note. I agree with the documented assessment and plan, with the following changes: none Past Medical History Past Medical History: Hearing Disorder / Deafness, Myocardial Infarction (DC) Additional Past Medical History / Comment(s): STATES WT LOSS OF 40 # OVER LAST 7 MONTHS, POOR APPETITE , FATIGUE., NODULE ON LUNG. , PARTIALLY DEAF RIGHT EAR., STATES 3 LOOSE TEETH ., STATES HX OF FALL & INJURED LEFT KNEE AND RIGHT WRIST (10/2017)-STATES LIMPING, & CANNOT USE RIGHT WRIST. Last Myocardial Infarction Date:: na History of Any Multi-Drug Resistant Organisms: None Reported Past Surgical History: Heart Catheterization With Stent Additional Past Surgical History / Comment(s): D & C Past Anesthesia/Blood Transfusion Reactions: No Reported Reaction Past Psychological History: Anxiety, Depression Smoking Status: Current every day smoker Past Alcohol Use History: Heavy Past Drug Use History: Marijuana - Past Family History Mother Family Medical History: Blood Disorder Additional Family Medical History / Comment(s): PROTEIN C - DEFICIENCY. Daughter(s) Family Medical History: Blood Disorder Additional Family Medical History / Comment(s): UNKNOWN NAME OF BLOOD DISORDER. Medications and Allergies Home Medications Medication Instructions Recorded Confirmed Type Albuterol Sulfate [Ventolin HFA] 2 puff INHALATION RT-Q4H PRN 11/04/23 11/04/23 History Budesonide/Formoterol Fumarate 2 puff INHALATION RT-BID 11/04/23 11/04/23 History [Symbicort 160-4.5 Mcg Inhaler] Atorvastatin [Lipitor] 40 mg PO HS 30 Days #30 tab 11/05/23 Rx amLODIPine [Norvasc] 5 mg PO DAILY 30 Days #30 tab 11/05/23 Rx carvediloL [Coreg] 6.25 mg PO BID 30 Days #60 tab 11/05/23 Rx Allergies Allergy/AdvReac Type Severity Reaction Status Date / Time No Known Allergies Allergy Verified 11/04/23 11:50 Physical Exam Vitals: Vital Signs Temp Pulse Resp BP Pulse Ox 11/04/23 12:00 85 23 139/95 98 11/04/23 11:13 90 18 139/95 97 11/04/23 10:22 85 22 186/106 98 11/04/23 10:10 98.2 F 89 20 174/105 98 Intake and Output 11/03/23 11/04/23 11/04/23 22:59 06:59 14:59 Other: Weight 49.895 kg Results CBC & Chem 7: 11/05/23 07:46 11/05/23 07:46 Labs: Abnormal Lab Results - Last 24 Hours (Table) 11/04/23 11/04/23 Range/Units 10:28 10:28 WBC 14.8 H (3.8-10.6) k/uL Hgb 16.3 H (11.4-16.0) gm/dL Hct 48.9 H (34.0-46.0) % MCV 100.4 H (80.0-100.0) fL Neutrophils # 11.7 H (1.3-7.7) k/uL Sodium 135 L (137-145) mmol/L Glucose 111 H (74-99) mg/dL Magnesium 1.5 L (1.6-2.3) mg/dL Alkaline Phosphatase 129 H (38-126) U/L
[2023-11-04] MEDS: carvediloL 6.25 MG TAB PO SCH (14:23)
--- NOTE | 2023-11-04 14:43 | P.CRDCN ---
History of Present Illness Consult date: 11/04/23 Consult reason: chest pain History of present illness: History of present illness: This is a 63-year-old female patient of Dr. Xiong with past medical history of mild coronary artery disease, hyperlipidemia, hypertension, COPD, tobacco use and dependence, marijuana use, history of alcohol abuse. We have been asked to evaluate the patient for chest pain. Patient states that she developed chest pain on the left side of her chest that started at 1030 and woke her from sleep. She also was not feeling well took her blood pressure was found to have a blood pressure 196/122 and heart rate was 139. She states she got up to the bathroom and came back to the bedroom and passed out on her way. She states she was feeling dizzy prior to the episode and then woke up on the floor. She states she has had some palpitations. On presentation to the hospital her blood pressure was 186/106. Patient has Coreg 6.25 mg at home which she has been instructed to take as needed. She took 1 last night and half a pill this morning. Regarding the chest pain, it was on the left side and went around to the back. The pain in the back lasted for about an hour. The pain on the left side of the anterior chest it was almost gone at the time of this evaluation. Patient continues to smoke and has cut down to 3 cigarettes/day. She is stop smoking marijuana and is utilizing gummies instead. Her last alcohol intake was 8 months ago. Patient has been given 1 dose of sublingual nitroglycerin and magnesium was replaced in the emergency center. EKG sinus rhythm with no acute ST-T wave changes. Chest x-ray: No acute process. COPD. WBC 14.8, hemoglobin 16. Potassium 4.5, creatinine 0.64. Troponin negative x 2. proBNP 57. Magnesium 1.5. Influenza A, influenza B, RSV, COVID-19 not detected. Home cardiac medications: Coreg 6.25 mg twice daily as needed. Echocardiogram performed on 12/11/2022 revealed normal LV size and systolic function, normal RV size and function. Normal right-sided pressures. Cardiac catheterization performed on 10/08/[address] Xiong revealed mild CAD with 30% stenosis of the proximal LAD and 30% stenosis of the RCA. Review Of Systems: At the time of my exam: CONSTITUTIONAL: Denies fever or chills. HEENT: Denies blurred vision, vision changes, or eye pain. Denies hemoptysis CARDIOVASCULAR: Mild chest pain. Denies orthopnea. Denies PND. Denies palpitations RESPIRATORY: Denies shortness of breath. GASTROINTESTINAL: Denies abdominal pain. Denies nausea or vomiting. HEMATOLOGIC: Denies bleeding disorders. GENITOURINARY: Denies any blood in urine. SKIN: Denies pruitis. Denies rash. Physical examination: Gen: This is a thin cachectic appearing 63-year-old female in no acute distress VS: reviewed blood pressure 139/95, heart rate 85, pulse ox 90% on room air. HEENT: Head is atraumatic, normocephalic. Pupils equal, round. Sclerae is anicteric. NECK: Supple. No JVD. LUNGS: Clear to auscultation. No wheezes or rhonchi. No intercostal retractions. HEART: Regular rate and rhythm. No murmur. ABDOMEN: Soft No tenderness. EXTREMITIES: No pedal edema. No calf tenderness. NEUROLOGICAL: Patient is awake, alert and oriented x3. Assessment: Chest pain, rule out acute coronary syndrome Uncontrolled hypertension Syncope probably vasovagal Palpitations and tachycardia History of mild CAD on cardiac catheterization Hyperlipidemia Tobacco use and dependence Marijuana use in the form of Gummies History of alcohol abuse with last intake 8 months ago Plan: Resume patient's home Coreg 6.25 mg and scheduled twice daily Aspirin 81 mg daily, atorvastatin 40 mg at bedtime Monitor blood pressure closely Orthostatic vital signs Telemetry monitoring N.p.o. after midnight Obtain 2-D echocardiogram and Doppler study to assess cardiac structure and function Obtain exercise stress echo tomorrow Further recommendations to follow based upon clinical course Thank you kindly for this consultation. Nurse practitioner note has been reviewed, I agree with documented findings and plan of care. Patient was seen and examined. Past Medical History Past Medical History: Hearing Disorder / Deafness, Myocardial Infarction (HI) Additional Past Medical History / Comment(s): STATES WT LOSS OF 40 # OVER LAST 7 MONTHS, POOR APPETITE , FATIGUE., NODULE ON LUNG. , PARTIALLY DEAF RIGHT EAR., STATES 3 LOOSE TEETH ., STATES HX OF FALL & INJURED LEFT KNEE AND RIGHT WRIST (10/2017)-STATES LIMPING, & CANNOT USE RIGHT WRIST. Last Myocardial Infarction Date:: na History of Any Multi-Drug Resistant Organisms: None Reported Past Surgical History: Heart Catheterization With Stent Additional Past Surgical History / Comment(s): D & C Past Anesthesia/Blood Transfusion Reactions: No Reported Reaction Past Psychological History: Anxiety, Depression Smoking Status: Current every day smoker Past Alcohol Use History: Heavy Past Drug Use History: Marijuana - Past Family History Mother Family Medical History: Blood Disorder Additional Family Medical History / Comment(s): PROTEIN C - DEFICIENCY. Daughter(s) Family Medical History: Blood Disorder Additional Family Medical History / Comment(s): UNKNOWN NAME OF BLOOD DISORDER. Medications and Allergies Home Medications Medication Instructions Recorded Confirmed Type Albuterol Sulfate [Ventolin HFA] 2 puff INHALATION RT-Q4H PRN 11/04/23 11/04/23 History Budesonide/Formoterol Fumarate 2 puff INHALATION RT-BID 11/04/23 11/04/23 History [Symbicort 160-4.5 Mcg Inhaler] carvediloL [Coreg] 6.25 mg PO BID PRN 11/04/23 11/04/23 History Allergies Allergy/AdvReac Type Severity Reaction Status Date / Time No Known Allergies Allergy Verified 11/04/23 11:50 Physical Exam Vitals: Vital Signs Temp Pulse Resp BP Pulse Ox 11/04/23 12:00 85 23 139/95 98 11/04/23 11:13 90 18 139/95 97 11/04/23 10:22 85 22 186/106 98 11/04/23 10:10 98.2 F 89 20 174/105 98 Intake and Output 11/03/23 11/04/23 11/04/23 22:59 06:59 14:59 Other: Weight 49.895 kg Results 11/04/23 10:28 11/04/23 10:28 Cardiac Enzymes 11/04/23 11/04/23 11/04/23 Range/Units 10:28 10:28 12:23 AST 30 (14-36) U/L Troponin I <0.012 <0.012 (0.000-0.034) ng/mL Coagulation 11/04/23 Range/Units 10:28 PT 10.7 (10.0-12.5) sec APTT 22.3 (22.0-30.0) sec CBC 11/04/23 Range/Units 10:28 WBC 14.8 H (3.8-10.6) k/uL RBC 4.87 (3.80-5.40) m/uL Hgb 16.3 H (11.4-16.0) gm/dL Hct 48.9 H (34.0-46.0) % Plt Count 286 (150-450) k/uL Comprehensive Metabolic Panel 11/04/23 Range/Units 10:28 Sodium 135 L (137-145) mmol/L Potassium 4.5 (3.5-5.1) mmol/L Chloride 101 (98-107) mmol/L Carbon Dioxide 22 (22-30) mmol/L BUN 13 (7-17) mg/dL Creatinine 0.64 (0.52-1.04) mg/dL Glucose 111 H (74-99) mg/dL Calcium 9.5 (8.4-10.2) mg/dL AST 30 (14-36) U/L ALT 17 (4-34) U/L Alkaline Phosphatase 129 H (38-126) U/L Total Protein 7.2 (6.3-8.2) g/dL Albumin 4.5 (3.5-5.0) g/dL Current Medications Generic Name Dose Route Start Last Admin Trade Name Freq PRN Reason Stop Dose Admin Albuterol Sulfate 2.5 mg 11/04/23 13:16 Albuterol Nebulized 2.5 Mg/3 Ml INHALATION RT-Q4H PRN Shortness Of Breath Aspirin 81 mg 11/05/23 09:00 Aspirin 81 Mg PO DAILY [facility] Budesonide/Formoterol Fumarate 2 puff 11/04/23 20:00 Symbicort 160-4.5 Mcg Inhaler INHALATION RT-BID [facility] Carvedilol 6.25 mg 11/04/23 13:15 Carvedilol 6.25 Mg Tab PO BID [facility] Enoxaparin Sodium 40 mg 11/05/23 09:00 Enoxaparin 40 Mg/0.4 Ml Syringe SQ DAILY [facility] Naloxone HCl 0.2 mg 11/04/23 11:35 Naloxone 0.4 Mg/Ml 1 Ml Vial IV Q2M PRN Opioid Reversal Nitroglycerin 0.4 mg 11/04/23 13:39 Nitroglycerin Sl Tabs 0.4 Mg Tab SUBLINGUAL Q5M PRN Chest Pain Intake and Output 11/03/23 11/04/23 11/04/23 22:59 06:59 14:59 Other: Weight 49.895 kg Patient Weight 11/05/23 06:59 Weight 49.895 kg 11/04/23 10:28 11/04/23 10:28
[2023-11-04] MEDS: NICOTINE 14MG/24HR PATCH TRANSDERM SCH (17:47)
--- NOTE | 2023-11-04 17:57 | CA ---
Transthoracic Echo Report Name: Verna Celaya Age: 63 Gender: F : 1960 Exam Date: 11/04/2023 14:22 Exam Location: [facility] Ht (in): 64 Wt (lb): 110 Ordering Physician: Charanjit Pace Attending/Referring Phys: Nuclear Design Engineer Katie Donato RCS Procedure CPT: Indications: Assess structure and function Cardiac Hx: Technical Quality: Fair Contrast 1: Total Dose (mL): Contrast 2: Total Dose (mL): MEASUREMENTS (Male / Female) Normal Values 2D ECHO LV Diastolic Diameter PLAX 3.7 cm 4.2 - 5.9 / 3.9 - 5.3 cm LV Systolic Diameter PLAX 2.4 cm IVS Diastolic Thickness 0.7 cm 0.6 - 1.0 / 0.6 - 0.9 cm LVPW Diastolic Thickness 0.7 cm 0.6 - 1.0 / 0.6 - 0.9 cm LV Relative Wall Thickness 0.4 LVOT Diameter 1.9 cm Aortic Root Diameter 2.9 cm LV Diastolic Volume MOD BP 38.3 cm??? 67 - 155 / 56 - 104 cm??? LV Systolic Volume MOD BP 11.8 cm??? 22 - 58 / 19 - 49 cm??? LV Ejection Fraction MOD BP 69.1 % >= 55 % LV Cardiac Index MOD BP 1540.7 cm???/min???m??? LV Diastolic Volume MOD 4C 40.1 cm??? LV Systolic Volume MOD 4C 12.2 cm??? LV Ejection Fraction MOD 4C 69.5 % LV Cardiac Index MOD 4C 1624.2 cm???/min???m??? LV Diastolic Length 4C 7.1 cm LV Systolic Length 4C 6.0 cm LV Diastolic Volume MOD 2C 34.0 cm??? LV Systolic Volume MOD 2C 10.3 cm??? LV Ejection Fraction MOD 2C 69.9 % LV Cardiac Index MOD 2C 1384.1 cm???/min???m??? LV Diastolic Length 2C 6.6 cm LV Systolic Length 2C 5.3 cm DOPPLER AV Peak Velocity 120.1 cm/s AV Peak Gradient 5.8 mmHg AV Mean Velocity 79.2 cm/s AV Mean Gradient 2.9 mmHg AV Velocity Time Integral 22.7 cm LVOT Peak Velocity 117.5 cm/s LVOT Peak Gradient 5.5 mmHg LVOT Velocity Time Integral 22.8 cm LVOT Stroke Volume 67.0 cm??? LVOT Stroke Volume Index 44.2 ml/m??? LVOT Cardiac Index 3901.4 cm???/min???m??? AV Area Cont Eq vti 3.0 cm??? AV Area Cont Eq pk 2.9 cm??? Mitral E Point Velocity 42.3 cm/s Mitral A Point Velocity 71.4 cm/s Mitral E to A Ratio 0.6 MV Deceleration Time 206.6 ms MV E' Velocity 5.5 cm/s Mitral E to MV E' Ratio 7.7 PV Peak Velocity 82.7 cm/s PV Peak Gradient 2.7 mmHg FINDINGS Left Ventricle Left ventricular ejection fraction is estimated at 65-70 %. Left ventricular wall thickness normal. Left ventricular cavity size small. No obvious regional wall motion abnormalities. Mid cavitary gradient at rest of 20mmHg, unable to provoke with valvsalva maneuver. Right Ventricle Normal right ventricular size and function. Unable to estimate right ventricular systolic function. Right Atrium Normal right atrial size. Left Atrium Normal left atrial size. Mitral Valve Structurally normal mitral valve. No evidence for mitral valve prolapse. No mitral stenosis. Trace mitral regurgitation. Aortic Valve Trileaflet aortic valve. No aortic valve stenosis or regurgitation. Tricuspid Valve Structurally normal tricuspid valve. No tricuspid stenosis. Trace tricuspid regurgitation. Pulmonic Valve Pulmonic valve not well visualized. No pulmonic stenosis. No pulmonic regurgitation. Pericardium No pericardial effusion. Aorta Aortic annulus normal. Ascending aorta not well visualized. CONCLUSIONS Normal LV function Previewed by: Dr. Mac Henry MD (Electronically Signed) Final Date: 04 November 2023 17:56
[2023-11-04 19:22] VITALS: RESP 16
[2023-11-04] MEDS: SYMBICORT 160-4.5 MCG INHALER INHALATION SCH (20:18)
[2023-11-04] MEDS: ATORVASTATIN 40 MG TAB PO SCH (21:23)
[2023-11-05] MEDS: NITROGLYCERIN SL TABS 0.4 MG TAB SUBLINGUAL PRN (03:02)
[2023-11-05] MEDS ORDERED: DOBUTamine DRIP for NUC MED 500 MG in DEXTROSE/WATER 1 250ML.BAG IV PRN (09:39)
[2023-11-05] MEDS ORDERED: DOBUTamine DRIP for NUC MED 500 MG/250 ML BAG IV ONE (10:30)
[2023-11-05] MEDS: ASPIRIN 81 MG PO SCH (11:15)
[2023-11-05] MEDS: ENOXAPARIN 40 MG/0.4 ML SYRINGE SQ SCH (11:15)
[2023-11-05] MEDS: amLODIPine 5 MG TAB PO SCH (11:18)
--- NOTE | 2023-11-05 12:36 | CA ---
Dobutamine Stress Echocardiogram Report Verna Celaya Age: 63 Gender: F : 1960 Exam Date: 11/05/2023 10:08 Exam Location: [facility] Ordering Physician: Amber Huston Referring Physician: [id number] Control Inspector: GIANNA PEDRAZA Technologist: Ht (in): 64 Wt (lb): 110 Procedure CPT: Indication: Chest Pain ICD-9 Codes: Rhythm: Patient History: Cardiac Medications: SEE CHART Medications in past 24 hours: Contrast: N/A Total Dose (mL): NA Stress Results Protocol: Dobutamine Peak Dose (???g/kg/min): 40 Duration (min:sec): Atropine:(mg) Target HR: 133 Double Product: [id number] Resting HR: 77 Resting BP: 135 / 90 Peak HR: 146 Peak BP: 217 / 118 Max Predicted HR: 156 94 % Max Predicted HR Stress Summary: BP Response: Reason for Termination: Exceeded target heart rate (85% max predicted) Cardiac Symptoms: hands and feet tingling ECG Analysis Resting EKG: Sinus rhythm normal axis normal intervals Stress EKG: Patient was given intravenous dobutamine or a period of 15 minutes as per protocol also received atropine achieving 85% of predicted maximal heart rate without diagnostic ST segment depression Arrhythmia: Echo Analysis Base Echo Analysis: Normal left ventricular size wall motion systolic function Low Echo Anaylsis: Normal Peak Echo Analysis: Normal hyperdynamic response Recovery Echo: Normal MEASUREMENTS (Male/Female) Normal Values CONCLUSIONS Negative stress test by EKG criteria Negative dobutamine stress echo Dr. Mac Henry MD (Electronically Signed) Final Date: 05 November 2023 12:35
[2023-11-05 12:40] LABS: BUN/Creat Ratio 21.17 Ratio (12.00-20.00); Blood Urea Nitrogen 12.7 mg/dL (9.0-27.0); Calcium 9.4 mg/dL (8.7-10.3); Carbon Dioxide 22.8 mmol/L (21.6-31.8); Chloride 101 mmol/L (96-109); Chol/HDL Ratio 4.03 Ratio; Glucose 108 mg/dL (70-110); LDL Cholesterol,Calculated 152.5 mg/dL (0.0-131.0); Potassium 4.6 mmol/L (3.5-5.5); Sodium 138 mmol/L (135-145)
[2023-11-05 12:42] LABS: Basophils # (A) 0.06 X 10*3/uL (0.00-0.10); Basophils % (A) 0.7 %; Eosinophils # (A) 0.44 X 10*3/uL (0.04-0.35); Eosinophils % (A) 4.9 %; HCT 47.1 % (37.2-46.3); HGB 16.4 g/dL (12.0-15.0); Lymphocytes # (A) 1.85 X 10*3/uL (0.90-5.00); Lymphocytes % (A) 20.8 %; MCH 33.9 pg (27.0-32.0); MCHC 34.8 g/dL (32.0-37.0); MCV 97.3 FL (80.0-97.0); Mean Platelet Volume 9.5 FL (9.5-12.2); Monocytes # (A) 0.76 X 10*3/uL (0.20-1.00); Monocytes % (A) 8.5 %; NRBC Per 100 WBC 0 X 10*3/uL (0.00-0.01); Neutrophils # (A) 5.76 X 10*3/uL (1.80-7.70); Neutrophils % (A) 64.9 %; Platelet Count 234 X 10*3/uL (140-440); RBC 4.84 X 10*6/uL (4.10-5.20); RDW 13.5 % (11.5-14.5); WBC 8.89 X 10*3/uL (4.50-10.00)
--- NOTE | 2023-11-05 14:24 | P.DS ---
Providers Date of admission: 11/04/23 11:46 Expected date of discharge: 11/05/23 Attending physician: Paddy Taveras MD Consults: 11/04/23 11:35 Consult Physician Urgent Consulting Provider: [facility] Consult Reason/Comments: acute chest pain, possible acs Do you want consulting provider notified?: Yes Primary care physician: Rafa Lobato MD Hospital Course: Discharge Diagnosis: Chest pain and presyncopal episode, acute coronary event ruled out. Leukocytosis, resolved Polycythemia, likely secondary to daily nicotine use and COPD. COPD with continued nicotine dependence, not in acute exacerbation. Recommend smoking cessation.Continue Symbicort 2 puffs twice daily and as needed Ventolin inhaler for shortness of breath and/or wheezing. Hypertension. Patient being discharged home on amlodipine 5 mg daily and was instructed to take carvedilol 6.25 mg twice daily instead of as needed as she was previously taking. Hyperlipidemia. Patient discharged home on atorvastatin 40 mg daily. Coronary artery disease Anxiety with depression Previously known lung nodule History of alcohol abuse (states stopped drinking 8 months ago). Hospital Course: Patient is a very pleasant 63-year-old female with a past medical history of CAD, hypertension, lung nodule, anxiety and depression, alcohol use/abuse, and COPD with continued nicotine dependence. She presented to the emergency department with a chief complaint of chest pain and presyncopal episode. Upon arrival to the emergency department patient underwent evaluation. Vital signs upon arrival show blood pressure 174/105, heart rate 89, respiratory rate 20, temp 98.2 F, and SpO2 of 98% on room air. EKG was completed showing sinus rhythm at 84 bpm with T wave inversion in lateral lead aVL and no significant ST abnormality. Chest x-ray completed showing flattening of the diaphragm with increased lucency of the lungs consistent with COPD but negative for acute cardiopulmonary process. Labs completed and reviewed. CBC showing leukocytosis with WBC count of 14.8 and polycythemia with macrocytosis with hemoglobin of 16.3 and MCV of 100.4. Coagulation profile normal findings. BMP unremarkable. Glucose 111. Magnesium low at 1.5. Liver profile showing elevated alkaline phosphatase of 129 otherwise normal findings. Troponin was negative at less than 0.012 and proBNP of 57. Influenza A, influenza B, RSV, and COVID PCR were negative. Patient was admitted under services with consultation to cardiology. Troponins were trended overnight all negative at less than 0.012 x 3 draws. Repeat CBC showing resolution of leukocytosis with WBC count decreasing from 14.8 down to 8.89. Lipid profile showing elevated cholesterol of 239 and LDL of 152.5. Echocardiogram was completed showing an EF of 65 to 70% with no significant valvular or structural abnormalities reported. Dobutamine stress test completed negative stress test by EKG criteria and negative dobutamine stress echo. Cardiology clearing patient from cardiac perspective for discharge recommending outpatient follow-up in office in 1 to 2 weeks. Patient remains free from chest pain/discomfort since admission and is medically stable for discharge at this time. Blood pressure 113/76, heart rate 86, respiratory rate 16, temp 97.3 F, and SpO2 of 97% on room air. Patient being discharged home on atorvastatin 40 mg nightly and amlodipine 5 mg daily and was instructed to take carvedilol 6.25 mg twice daily instead of as needed as she was previously taking. Patient to follow-up outpatient with PCP in 1 to 2 days and with supervisory it specialist in 1 to 2 weeks. Physical exam: Vital signs reviewed and stable. General: Nontoxic, no distress and appears stated age. Derm: Skin warm and dry, normal coloration for ethnicity. Head: Atraumatic, normocephalic and symmetric. Eyes: EOMs intact, no lid lag, and anicteric sclera Mouth: no lip lesions, mucus membranes moist Cardiovascular: regular rate and rhythm with normal S1S2, no murmur, positive posterior tibial pulses bilaterally, and cap refill < 2 seconds. Lungs: Respirations even, regular, and unlabored on room air. Lungs CTA bilaterally, no rhonchi, no rales, no wheezing, and no accessory muscle usage. Abdominal: soft, nontender to palpation, no guarding, no appreciable organomegaly Ext: ROM intact. No gross muscle atrophy, no edema, no contractures Neuro: Speech clear, face symmetrical and CN II-XII grossly intact with no noted focal neuro deficits Psych: Alert and oriented to person, place, time, and situation. Appropriate and pleasant affect. A total of 34 minutes of time were spent preparing this complex discharge summary. Pt was discharged on 11/05/2023 at 2:21 PM. Patient was seen independently by Nurse Practitioner. This document was prepared using [employer] dictation software. Please allow for errors in repacker while rare they do occur. Charanjit Pace NP rendered care for this patient independently, reviewed the findings and plan as documented in the note above. I did not physically speak with or examine the patient on this date. Patient Condition at Discharge: Stable Plan - Discharge Summary Discharge Rx Participant: No New Discharge Prescriptions: New Atorvastatin [Lipitor] 40 mg PO HS 30 Days #30 tab amLODIPine [Norvasc] 5 mg PO DAILY 30 Days #30 tab Continue Budesonide/Formoterol Fumarate [Symbicort 160-4.5 Mcg Inhaler] 2 puff INHALATION RT-BID Albuterol Sulfate [Ventolin HFA] 2 puff INHALATION RT-Q4H PRN PRN Reason: Shortness Of Breath Changed carvediloL [Coreg] 6.25 mg PO BID 30 Days #60 tab Discharge Medication List Albuterol Sulfate [Ventolin HFA] 2 puff INHALATION RT-Q4H PRN 11/04/23 [History] Budesonide/Formoterol Fumarate [Symbicort 160-4.5 Mcg Inhaler] 2 puff INHALATION RT-BID 11/04/23 [History] Atorvastatin [Lipitor] 40 mg PO HS 30 Days #30 tab 11/05/23 [Rx] amLODIPine [Norvasc] 5 mg PO DAILY 30 Days #30 tab 11/05/23 [Rx] carvediloL [Coreg] 6.25 mg PO BID 30 Days #60 tab 11/05/23 [Rx] Follow up Appointment(s)/Referral(s): Tony Xiong DO [STAFF PHYSICIAN] - 1 Week Rafa Lobato MD [Primary Care Provider] - 1-2 days Patient Instructions/Handouts: Chest Pain (DC), Hypertension (DC) Activity/Diet/Wound Care/Special Instructions: Activity: As tolerated. Take breaks as needed. Diet: Heart healthy and carb consistent diet. Avoid salts, or foods with hidden salts such as canned or boxed foods and frozen dinners. Extra salt makes your heart work harder and traps the fluid in your body for longer. Special Instructions: Take all of your medications as directed and remember to keep all of your doctor's appointments and follow-up as needed. Thank you for allowing us to participate in your care, it was truly a pleasure having you for our patient!!! . Discharge Disposition: HOME SELF-CARE
--- NOTE | 2023-11-05 14:25 | P.PN ---
Subjective Progress Note Date: 11/05/23 Consult reason: chest pain History of present illness: History of present illness: This is a 63-year-old female patient of Dr. Xiong with past medical history of mild coronary artery disease, hyperlipidemia, hypertension, COPD, tobacco use and dependence, marijuana use, history of alcohol abuse. We have been asked to evaluate the patient for chest pain. Patient states that she developed chest pain on the left side of her chest that started at 1030 and woke her from sleep. She also was not feeling well took her blood pressure was found to have a blood pressure 196/122 and heart rate was 139. She states she got up to the bathroom and came back to the bedroom and passed out on her way. She states she was feeling dizzy prior to the episode and then woke up on the floor. She states she has had some palpitations. On presentation to the hospital her blood pressure was 186/106. Patient has Coreg 6.25 mg at home which she has been instructed to take as needed. She took 1 last night and half a pill this morning. Regarding the chest pain, it was on the left side and went around to the back. The pain in the back lasted for about an hour. The pain on the left side of the anterior chest it was almost gone at the time of this evaluation. Patient continues to smoke and has cut down to 3 cigarettes/day. She is stop smoking marijuana and is utilizing gummies instead. Her last alcohol intake was 8 months ago. Patient has been given 1 dose of sublingual nitroglycerin and magnesium was replaced in the emergency center. EKG sinus rhythm with no acute ST-T wave changes. Chest x-ray: No acute process. COPD. WBC 14.8, hemoglobin 16. Potassium 4.5, creatinine 0.64. Troponin negative x 2. proBNP 57. Magnesium 1.5. Influenza A, influenza B, RSV, COVID-19 not detected. Home cardiac medications: Coreg 6.25 mg twice daily as needed. Echocardiogram performed on 12/11/2022 revealed normal LV size and systolic function, normal RV size and function. Normal right-sided pressures. Cardiac catheterization performed on 10/08/[address] Xiong revealed mild CAD with 30% stenosis of the proximal LAD and 30% stenosis of the RCA. 11/04 Patient denies of left-sided chest pain that she had yesterday. She does complain of an epigastric heartburn type pain today. Patient is scheduled for dobutamine stress echo today. If this is negative, patient will be cleared for discharge home. Blood pressure readings remain elevated. Patient did not receive Coreg this morning due to stress test. 182/94, heart rates in the 80s. Orthostatic vital signs have not been obtained. Echocardiogram reveals EF of 65 to 70%. Dobutamine stress echo is negative by EKG criteria and by dobutamine stress echo. Physical examination: Gen: This is a thin cachectic appearing 63-year-old female in no acute distress VS: reviewed HEENT: Head is atraumatic, normocephalic. Pupils equal, round. Sclerae is anicteric. NECK: Supple. No JVD. LUNGS: Clear to auscultation. No wheezes or rhonchi. No intercostal retractions. HEART: Regular rate and rhythm. No murmur. ABDOMEN: Soft No tenderness. EXTREMITIES: No pedal edema. No calf tenderness. NEUROLOGICAL: Patient is awake, alert and oriented x3. Assessment: Chest pain, rule out acute coronary syndrome Uncontrolled hypertension Syncope probably vasovagal Palpitations and tachycardia History of mild CAD on cardiac catheterization Hyperlipidemia Tobacco use and dependence Marijuana use in the form of Gummies History of alcohol abuse with last intake 8 months ago Plan: Continue patient's home Coreg 6.25 mg and scheduled twice daily Continue aspirin 81 mg daily, atorvastatin 40 mg at bedtime Add amlodipine 5 mg daily Patient is cleared for discharge from cardiology and will follow-up with Dr. Xiong in 1 to 2 weeks. Nurse practitioner note has been reviewed, I agree with documented findings and plan of care. Patient was seen and examined. Objective - Vital Signs Vital signs: Vital Signs Temp 97.6 F 11/05/23 07:20 Pulse 83 11/05/23 07:20 Resp 16 11/05/23 07:20 BP 182/94 11/05/23 07:20 Pulse Ox 95 11/05/23 07:20 FiO2 Intake & Output 11/04/23 11/05/23 11/05/23 18:59 06:59 18:59 Weight 49.895 kg Other: Voiding Method Toilet # Voids 1 1 - Labs CBC & Chem 7: 11/05/23 07:46 11/05/23 07:46 Labs: Abnormal Lab Results - Last 24 Hours (Table) 11/04/23 11/04/23 Range/Units 10:28 10:28 WBC 14.8 H (3.8-10.6) k/uL Hgb 16.3 H (11.4-16.0) gm/dL Hct 48.9 H (34.0-46.0) % MCV 100.4 H (80.0-100.0) fL Neutrophils # 11.7 H (1.3-7.7) k/uL Sodium 135 L (137-145) mmol/L Glucose 111 H (74-99) mg/dL Magnesium 1.5 L (1.6-2.3) mg/dL Alkaline Phosphatase 129 H (38-126) U/L
[2023-11-05 14:39] VITALS: BP 113/76; PULSE 79; TEMP 97.3
[2023-11-05 15:22] VITALS: BMI 18.8
== END 2023-11-05 17:05 | disposition home or self-care (01) ==
LOC: EC 09:54 → 6NMEDSUR 11:46
PROVIDERS: ADMIT Family Medicine; ATTEND Family Medicine
DX: R07.89 Other chest pain (principal); J44.9 Chronic obstructive pulmonary disease, unspecified; R55 Syncope and collapse; I10 Essential (primary) hypertension; I25.10 Atherosclerotic heart disease of native coronary artery without angina pectoris; F17.210 Nicotine dependence, cigarettes, uncomplicated; R91.1 Solitary pulmonary nodule; D75.1 Secondary polycythemia; D75.89 Other specified diseases of blood and blood-forming organs; R74.8 Abnormal levels of other serum enzymes; D72.829 Elevated white blood cell count, unspecified; F10.11 Alcohol abuse, in remission; R00.0 Tachycardia, unspecified; R00.2 Palpitations; F12.90 Cannabis use, unspecified, uncomplicated; M54.9 Dorsalgia, unspecified; F41.9 Anxiety disorder, unspecified; F32.A Depression, unspecified; Z79.51 Long term (current) use of inhaled steroids; Z79.899 Other long term (current) drug therapy; Z11.52 Encounter for screening for COVID-19; Z11.59 Encounter for screening for other viral diseases; Z71.6 Tobacco abuse counseling; E78.5 Hyperlipidemia, unspecified
CPT/HCPCS: 96372; 99285; 36415; 94640 ×2; 93005; 93306; 93351; 83880; 80061; 80053; 80048; 83735 ×2; 84484; 85025 ×2; 85610; 85730; 87636; 71046; G0378 ×2; S4990 ×2; J1250; J1650; J3475

== ENCOUNTER 2023-12-05 00:08 | Observation (INO) | payer OTHER ==
[2023-12-05 01:23] LABS: ALT 18 U/L (4-34); AST 36 U/L (14-36); African American GFR (CKD) >90 (>60 ml/min/1.73 sqM); Albumin 4.3 g/dL (3.5-5.0); Alkaline Phosphatase 101 U/L (38-126); Anion Gap 8 mmol/L; Blood Urea Nitrogen 11 mg/dL (7-17); Calcium 8.9 mg/dL (8.4-10.2); Carbon Dioxide 20 mmol/L (22-30); Chloride 110 mmol/L (98-107); Glucose 106 mg/dL (74-99); Lipase 94 U/L (23-300); Magnesium 1.9 mg/dL (1.6-2.3); Non-African American GFR(CKD) >90 (>60 ml/min/1.73 sqM); Sodium 138 mmol/L (137-145); Total Bilirubin 0.8 mg/dL (0.2-1.3); Total Protein 7.8 g/dL (6.3-8.2)
[2023-12-05 01:29] LABS: Basophils # (A) 0.1 k/uL (0-0.2); Basophils % (A) 1 %; Eosinophils # (A) 0.4 k/uL (0-0.7); Eosinophils % (A) 3 %; HCT 48.8 % (34.0-46.0); HGB 16.5 gm/dL (11.4-16.0); Lymphocytes # (A) 1.9 k/uL (1.0-4.8); Lymphocytes % (A) 15 %; MCH 34.9 pg (25.0-35.0); MCHC 33.8 g/dL (31.0-37.0); MCV 103.4 fL (80.0-100.0); Macrocytosis Slight; Mean Platelet Volume 8.1; Monocytes # (A) 0.7 k/uL (0-1.0); Monocytes % (A) 5 %; Neutrophils # (A) 9.4 k/uL (1.3-7.7); Neutrophils % (A) 75 %; Platelet Count 231 k/uL (150-450); RBC 4.72 m/uL (3.80-5.40); RDW 13.2 % (11.5-15.5); WBC 12.6 k/uL (3.8-10.6)
--- NOTE | 2023-12-05 01:29 | ED ---
Chest Pain HPI - General Chief Complaint: Chest Pain Stated Complaint: chest pain Time Seen by Provider: 12/05/23 00:10 Source: patient, EMS Mode of arrival: EMS Limitations: no limitations - History of Present Illness Initial Comments: 63-year-old female with past medical history of coronary artery disease, COPD, tobacco abuse who presents emergency department for chest pain. States that the pain awoke her from sleep. She describes it as substernal pain which radiated through to her back. She had associated nausea with vomiting. She checked her blood pressure and it was markedly high at home. She states that she was hospitalized 4 weeks ago for a similar episode. Stress testing was performed and negative. Upon EMS transport to the hospital [facility] she did receive 4 chewable aspirins, a nitro and some Zofran. She states that the nitro alleviated her chest pain and she is chest pain-free at this time. She does not believe she has any stents in her heart. Last heart cath was in September 2021. She follows with Dr. Xiong. No other alleviating, precipitating or modifying factors - Related Data Home Medications Medication Instructions Recorded Confirmed Albuterol Sulfate [Ventolin HFA] 2 puff INHALATION RT-Q4H PRN 11/04/23 11/04/23 Budesonide/Formoterol Fumarate 2 puff INHALATION RT-BID 11/04/23 11/04/23 [Symbicort 160-4.5 Mcg Inhaler] Previous Rx's Medication Instructions Recorded Atorvastatin [Lipitor] 40 mg PO HS 30 Days #30 tab 11/05/23 amLODIPine [Norvasc] 5 mg PO DAILY 30 Days #30 tab 11/05/23 carvediloL [Coreg] 6.25 mg PO BID 30 Days #60 tab 11/05/23 Allergies Allergy/AdvReac Type Severity Reaction Status Date / Time No Known Allergies Allergy Verified 11/04/23 11:50 Review of Systems ROS Statement: Those systems with pertinent positive or pertinent negative responses have been documented in the HPI. ROS Other: All systems not noted in ROS Statement are negative. Past Medical History Past Medical History: Hearing Disorder / Deafness, Myocardial Infarction ([place]) Additional Past Medical History / Comment(s): STATES WT LOSS OF 40 # OVER LAST 7 MONTHS, POOR APPETITE , FATIGUE., NODULE ON LUNG. , PARTIALLY DEAF RIGHT EAR., STATES 3 LOOSE TEETH ., STATES HX OF FALL & INJURED LEFT KNEE AND RIGHT WRIST (10/2017)-STATES LIMPING, & CANNOT USE RIGHT WRIST. Last Myocardial Infarction Date:: na History of Any Multi-Drug Resistant Organisms: None Reported Past Surgical History: Heart Catheterization With Stent Additional Past Surgical History / Comment(s): D & C Past Anesthesia/Blood Transfusion Reactions: No Reported Reaction Past Psychological History: Anxiety, Depression Smoking Status: Current every day smoker Past Alcohol Use History: Heavy Past Drug Use History: Marijuana - Past Family History Mother Family Medical History: Blood Disorder Additional Family Medical History / Comment(s): PROTEIN C - DEFICIENCY. Daughter(s) Family Medical History: Blood Disorder Additional Family Medical History / Comment(s): UNKNOWN NAME OF BLOOD DISORDER. General Exam Limitations: no limitations General appearance: alert, in no apparent distress Head exam: Present: atraumatic, normocephalic, normal inspection Eye exam: Present: normal appearance, PERRL, EOMI. Absent: scleral icterus, conjunctival injection, periorbital swelling ENT exam: Present: normal exam, mucous membranes moist Neck exam: Present: normal inspection. Absent: tenderness, meningismus, lymphadenopathy Respiratory exam: Present: normal lung sounds bilaterally. Absent: respiratory distress, wheezes, rales, rhonchi, stridor Cardiovascular Exam: Present: regular rate, normal rhythm, normal heart sounds. Absent: systolic murmur, diastolic murmur, rubs, gallop, clicks GI/Abdominal exam: Present: soft, normal bowel sounds. Absent: distended, tenderness, guarding, rebound, rigid Extremities exam: Present: normal inspection, full ROM, normal capillary refill. Absent: tenderness, pedal edema, joint swelling, calf tenderness Back exam: Present: normal inspection Neurological exam: Present: alert, oriented X3, CN II-XII intact Psychiatric exam: Present: normal affect, normal mood Skin exam: Present: warm, dry, intact, normal color. Absent: rash Course Vital Signs 12/05/23 12/05/23 12/05/23 00:09 00:13 01:19 Temperature 98.1 F Pulse Rate 80 78 Pulse Rate [ [employer] ] Respiratory 18 16 Rate Blood Pressure 161/92 156/106 O2 Sat by Pulse 100 97 Oximetry Chest Pain MDM - MDM Was pt. sent in by a medical professional or institution (, PA, OPTICAL LATHE OPERATOR, urgent care, hospital, or jail...) When possible be specific @ -No Did you speak to anyone other than the patient for history (EMS, parent, family, police, friend...)? What history was obtained from this source @ -Spoke with EMS for history. They did provide the patient with aspirin, nitro and Zofran Did you review nursing and triage notes (agree or disagree)? Why? @ -I reviewed and agree with nursing and triage notes Were old charts reviewed (outside hosp., previous admission, EMS record, old EKG, old radiological studies, urgent care reports/EKG's, jail records)? Report findings @ -I reviewed the discharge summary and stress test from November 04. Patient did pass her stress test at this time Differential Diagnosis (chest pain, altered mental status, abdominal pain women, abdominal pain men, vaginal bleeding, weakness, fever, dyspnea, syncope, headache, dizziness, GI bleed, back pain, seizure, CVA, palpatations, mental health, musculoskeletal)? @ -Differential Chest Pain: Stable Angina, Unstable Angina, STEMI, NSTEMI Aortic Dissection, Pneumothorax, Musculoskeletal, Esophageal Spasm GERD, Cholecystitis, Pancreatitis, Zoster, this is not meant to be an all-inclusive list. EKG interpreted by me (3pts min.). @ -Yes and demonstrates sinus rhythm with a rate of 68. MT interval 135. QRS 90. QTc of 385. No acute ST segment elevations. V2 has an inverted T wave X-rays interpreted by me (1pt min.). @ -Yes and demonstrates no acute process CT interpreted by me (1pt min.). @ -None done U/S interpreted by me (1pt. min.). @ -None done What testing was considered but not performed or refused? (CT, X-rays, U/S, labs)? Why? @ -None What meds were considered but not given or refused? Why? @ -I did offer pain and nausea medications however the patient is pain-free at this time Did you discuss the management of the patient with other professionals (professionals i.e. , PA, OPTICAL LATHE OPERATOR, lab, RT, psych nurse, addiction social worker, disaster response director, teacher, quality officer, case management specialist)? Give summary @ -I spoke with Dr. De Los Santos who is agreeable to admit the patient to his service Was smoking cessation discussed for >3mins.? @ -No Was critical care preformed (if so, how long)? @ -No Were there social determinants of health that impacted care today? How? (Homelessness, low income, unemployed, alcoholism, drug addiction, transportation, low edu. Level, literacy, decrease access to med. care, residential, rehab)? @ -No Was there de-escalation of care discussed even if they declined (Discuss DNR or withdrawal of care, Hospice)? DNR status @ -No What co-morbidities impacted this encounter? (DM, HTN, Smoking, COPD, CAD, Cancer, CVA, ARF, Chemo, Hep., AIDS, mental health diagnosis, sleep apnea, morbid obesity)? @ -COPD, tobacco abuse, coronary artery disease Was patient admitted / discharged? Hospital course, mention meds given and route, prescriptions, significant lab abnormalities, going to OR and other pertinent info. @ -Upon arrival patient was seen and evaluated in room 2. Thorough history and physical exam was performed. IV access had been established by EMS. Laboratory studies are conducted. Chest x-ray was performed. Troponin is negative at this time. Due to patient's history of coronary disease I did recommend admission for which she was agreeable. Spoke with Dr. de los santos who agreed to the admission. Undiagnosed new problem with uncertain prognosis? @ -No Drug Therapy requiring intensive monitoring for toxicity (Heparin, Nitro, Insulin, Cardizem)? @ -No Were any procedures done? @ -No Diagnosis/symptom? @ -acute chest pain, possible acs, hx ascad Acute, or Chronic, or Acute on Chronic? @ -acute Uncomplicated (without systemic symptoms) or Complicated (systemic symptoms)? @ -complicated Side effects of treatment? @ -No Exacerbation, Progression, or Severe Exacerbation? @ -No Poses a threat to life or bodily function? How? (Chest pain, [place], [place], pneumonia, PE, COPD, DKA, ARF, appy, cholecystitis, CVA, Diverticulitis, Homicidal, Suicidal, threat to staff... and all critical care pts) @ -yes - patient presents with chest pain Disposition Clinical Impression: Chest pain Disposition: ADMITTED IP TO THIS HOSP Condition: Stable Is patient prescribed a controlled substance at d/c from ED?: No Referrals: Rafa Lobato MD [Primary Care Provider] - 1-2 days Time of Disposition: 02:16 Decision to Admit Reason: Admit from EC Decision Date: 12/05/23 Decision Time: 02:16
[2023-12-05 01:31] LABS: Potassium 5.6 mmol/L (3.5-5.1)
[2023-12-05 01:34] LABS: INR 0.9 (<1.2); Prothrombin Time 10.1 sec (10.0-12.5)
[2023-12-05 01:37] LABS: Partial Thromboplastin Time 21.3 sec (22.0-30.0)
[2023-12-05 01:56] VITALS: RESP 16
--- NOTE | 2023-12-05 02:18 | XR ---
EXAM: XR Chest, 2 Views CLINICAL HISTORY: Chest Pain TECHNIQUE: Frontal and lateral views of the chest. COMPARISON: 11/04/23 FINDINGS: Lungs: Unremarkable. No consolidation. Pleural space: Unremarkable. Mediastinum: Unremarkable. Normal mediastinal contour. Bones/joints: No acute findings. IMPRESSION: No acute findings.
[2023-12-05] MEDS ORDERED: NALOXONE 0.4 MG/ML 1 ML VIAL IV PRN (02:37)
[2023-12-05] MEDS ORDERED: IPRATROPIUM-ALBUTEROL 3 ML NEB INHALATION PRN (06:27)
--- NOTE | 2023-12-05 06:56 | P.HPIM ---
History of Present Illness H&P Date: 12/05/23 Chief Complaint: Chest pain 63-year-old female with coronary artery disease, COPD not on home oxygen Patient coming in with sudden onset chest pain she reports that she was sleeping when he woke up with severe epigastric burning sensation 9 out of 10 in severity associated with frothy vomiting lightheadedness and shortness of breath she got very alarmed to check her blood pressure found it elevated with systolic was 227. Her flow nurse has been making adjustments to her blood pressure medications due to episodes of low blood pressure for which Coreg was cut back significantly down to 3.25 and then she was told to take it only as needed if her blood pressure is high she reports that she has been taking only bites of that 3.25 mg pill as needed so she did take 1 initially her blood pressure improved but then her blood pressure started going up again for which she decided to come into the hospital for evaluation as she continued to experience some chest discomfort She was here just 1 month ago had a dobutamine stress test that was negative she follows up with cardiology she is known to have coronary artery disease Otherwise she denies any upper respiratory infection symptoms denies any coughing fevers chills denies any abdominal pain GI bleeding changes in bowel or urinary habits She smokes half of cigarettes per day she stopped alcohol over 9 months ago she denies any illicit drugs review of systems Pertinent positives as noted in HPI. All other systems were reviewed and are negative on exam Constitutional: No acute distress, conversant, pleasant Eyes: Anicteric sclerae, moist conjunctiva, Pupils equal round reactive to light ENMT: NC/AT Oropharynx clear, no erythema, or exudates Neck: Supple, no masses, or JVD No carotid bruits No thyromegaly Lungs: Clear to auscultation Clear to percussion Normal respiratory effort, no accessory muscle use Cardiovascular: Heart regular in rate and rhythm, No murmurs, gallops, or rubs No peripheral edema Abdominal: Soft Nontender, no guarding, rebound or rigidity Abdomen moving with respiration Normoactive bowel sounds Extremities: No digital cyanosis No clubbing Pedal pulses intact and symmetrical and equal Radial pulses intact and symmetrical No calf tenderness Psychiatric: Alert and oriented to person, place and time Appropriate affect fair judgement Neuro Muscles Strength 5/5 in all 4 extremities Sensation to light touch grossly present throughout Cranial nerves II-XII grossly intact Past Medical History Past Medical History: Hearing Disorder / Deafness, Myocardial Infarction ([place]) Additional Past Medical History / Comment(s): STATES WT LOSS OF 40 # OVER LAST 7 MONTHS, POOR APPETITE , FATIGUE., NODULE ON LUNG. , PARTIALLY DEAF RIGHT EAR., STATES 3 LOOSE TEETH ., STATES HX OF FALL & INJURED LEFT KNEE AND RIGHT WRIST ( 10/2017)-STATES LIMPING, & CANNOT USE RIGHT WRIST. Last Myocardial Infarction Date:: na History of Any Multi-Drug Resistant Organisms: None Reported Past Surgical History: Heart Catheterization With Stent Additional Past Surgical History / Comment(s): D & C Past Anesthesia/Blood Transfusion Reactions: No Reported Reaction Past Psychological History: Anxiety, Depression Smoking Status: Current every day smoker Past Alcohol Use History: Heavy Past Drug Use History: Marijuana - Past Family History Mother Family Medical History: Blood Disorder Additional Family Medical History / Comment(s): PROTEIN C - DEFICIENCY. Daughter(s) Family Medical History: Blood Disorder Additional Family Medical History / Comment(s): UNKNOWN NAME OF BLOOD DISORDER. Medications and Allergies Home Medications Medication Instructions Recorded Confirmed Type Albuterol Sulfate [Ventolin HFA] 2 puff INHALATION RT-Q4H PRN 11/04/23 12/05/23 History Budesonide/Formoterol Fumarate 2 puff INHALATION RT-BID 11/04/23 12/05/23 History [Symbicort 160-4.5 Mcg Inhaler] Atorvastatin [Lipitor] 40 mg PO HS 30 Days #30 tab 11/05/23 12/05/23 Rx amLODIPine [Norvasc] 5 mg PO DAILY 30 Days #30 tab 11/05/23 12/05/23 Rx Aspirin EC [Ecotrin Low Dose] 81 mg PO DAILY 12/05/23 12/05/23 History Ergocalciferol (Vitamin D2) 1,250 mcg PO WE 12/05/23 12/05/23 History [Drisdol (50,000 Iu)] carvediloL [Coreg] 6.25 mg PO BID PRN 12/05/23 12/05/23 History Allergies Allergy/AdvReac Type Severity Reaction Status Date / Time No Known Allergies Allergy Verified 12/05/23 06:43 Physical Exam Vitals: Vital Signs Temp Pulse Pulse Resp BP Pulse Ox 12/05/23 03:00 78 16 145/87 96 12/05/23 02:40 73 16 150/112 97 05/16/24 01:19 78 16 156/106 97 12/05/23 00:13 73 12/05/23 00:09 98.1 F 80 18 161/92 100 Intake and Output 12/04/23 12/04/23 12/05/23 14:59 22:59 06:59 Other: Weight 49.895 kg Results CBC & Chem 7: 12/05/23 00:34 12/05/23 00:34 Labs: Abnormal Lab Results - Last 24 Hours (Table) 12/05/23 12/05/23 12/05/23 Range/Units 00:34 00:34 00:34 WBC 12.6 H (3.8-10.6) k/uL Hgb 16.5 H (11.4-16.0) gm/dL Hct 48.8 H (34.0-46.0) % MCV 103.4 H (80.0-100.0) fL Neutrophils # 9.4 H (1.3-7.7) k/uL APTT 21.3 L (22.0-30.0) sec Potassium 5.6 H (3.5-5.1) mmol/L Chloride 110 H (98-107) mmol/L Carbon Dioxide 20 L (22-30) mmol/L Glucose 106 H (74-99) mg/dL Assessment and Plan Assessment: 63-year-old female known coronary artery disease and COPD not on home oxygen coming in due to chest pain and elevated blood pressure I discussed the case with ED doctor and accepted the admission for atypical chest pain and uncontrolled hypertension with anticipated length of stay less than 2 midnights Atypical chest pain Uncontrolled hypertension Known coronary artery disease Negative dobutamine stress test 1 month ago Cardiology consult Check CT angio of the thoracic and abdominal aorta to rule out dissection Blood pressure control Resume amlodipine, resume low-dose Coreg Close monitoring of vital signs and blood pressure COPD compensated Continue with home inhalers DuoNebs as needed Polycythemia secondary to history of smoking Continue to monitor Hemoglobin 16.5 at baseline Macrocytosis without anemia with history of heavy alcohol consumption Patient claims to be sober for the past 9 months Continue to monitor Hyperlipidemia Continue with statin Otherwise renal function unremarkable sodium 138 potassium 5.6 BUN 11 creatinine 0.5 Troponins negative Full code DVT prophylaxis mechanical until aortic dissection is ruled out
[2023-12-05] MEDS ORDERED: HEPARIN SODIUM,PORCINE 5,000 UNIT/ML 1 ML VIAL SQ SCH (08:00)
--- NOTE | 2023-12-05 08:22 | CT ---
EXAMINATION TYPE: CT angio thor/abd pel aorta, without and with contrast DATE OF EXAM: 12/05/2023 COMPARISON: 12/13/2022, 10/15/2023 HISTORY: 63-year-old female chest pain, cough, vomiting r/o dissection TECHNIQUE: Contiguous axial scanning of the without IV contrast. Subsequent postcontrast scanning of the chest, abdomen, and pelvis performed with IV Contrast, patient injected with 100 mL of Isovue 370 . Coronal/sagittal reconstructions performed. 3-D reconstructions generated on a dedicated [employer] workstation. CT DLP: 791.6 mGycm Automated exposure control for dose reduction was used. FINDINGS: Chest: The heart is normal size without pericardial effusion. Mild LAD and RCA coronary calcifications are p resent. Aorta normal caliber with conventional arch vessel branching anatomy. Initial noncontrast scan shows no evidence for acute intramural hematoma. No evidence for aortic dissection. No pulmonary embolus is identified. A few prominent mediastinal lymph nodes, largest measuring 8 mm precarinal, subcarinal, AP window are unchanged. No thoracic lymphadenopathy by CT size criteria. Mild biapical pleural-parenchymal scarring. Mild to moderate centrilobular and paraseptal emphysema. Strandy atelectasis at the lung bases. No consolidation or pleural effusion. ABDOMEN: No focal liver lesion seen on noncontrast and early arterial phase imaging. Gallbladder, right adrena l gland, kidneys, spleen, and pancreas show no gross abnormality. Mild low-density thickening of the left adrenal gland without discrete nodularity. Appearance is unch anged. No dilated small bowel, free fluid, or free air. No mesenteric or retroperitoneal adenopathy. Normal appendix. Mild to moderate stool burden. Left-sided colonic diverticulosis. No pericolonic inf lammatory change. Mild to moderate atherosclerotic calcifications infrarenal abdominal aorta and common iliac arteries without aneurysm. Incidental circumaortic left renal vein. Pelvis: Bladder partially distended. Uterus anteverted. Both ovaries are visualized. Pelvic fluid was. No abn ormal fluid collection in the pelvis or pelvic lymphadenopathy. Bones: No osseous destructive process. Mild degenerative disc bulging in the lumbar spine. IMPRESSION: 1. NO EVIDENCE FOR AORTIC DISSECTION OR ANEURYSM. NO EVIDENCE FOR PULMONARY EMBOLUS. 2. COPD WITH MILD TO MODERATE EMPHYSEMA. 3. LEFT-SIDED COLONIC DIVERTICULOSIS WITHOUT ACUTE DIVERTICULITIS.
[2023-12-05] MEDS: SYMBICORT 160-4.5 MCG INHALER INHALATION SCH (09:01)
[2023-12-05 09:19] VITALS: TEMP 97.5
[2023-12-05] MEDS ORDERED: hydrOXYzine HCL 25 MG TAB PO PRN (09:23)
--- NOTE | 2023-12-05 09:49 | P.CRDCN ---
History of Present Illness Consult date: 12/05/23 Consult reason: chest pain History of present illness: History of present illness: This is a 63-year-old female patient of Dr. Xiong with past medical history of coronary artery disease, hyperlipidemia, hypertension, nicotine dependence, marijuana use, alcohol abuse. We have been asked to evaluate the patient for chest pain. Patient was recently hospitalized at [facility] on 11/04/2023 for chest pain, near syncope, and increased blood pressure and underwent dobutamine stress echocardiogram that was normal as well as echocardiogram. She did have follow-up with Dr. Xiong in the office on 11/07/2023 at which time she had no chest pain. Patient presented to the hospital as she developed chest pain that woke her up from a sleep followed by vomiting white foamy substance and high blood pressure. She states she has had some chest pain on and off along and has been under a lot of mental stress that she is going through divorce and selling her house. She checked her blood pressure at home and her systolic was 227. She denies any lower extremity edema, PND. He she does have a cough and some dizziness but had a syncopal episode 2 days ago. She thinks it was because she got up too fast. She does have some nausea and vomiting. No blood in her urine or stool. No history of stroke or seizure. She is normally very active but has felt tired the last 3 days. EKG sinus rhythm with no acute ST-T wave changes. Chest x-ray: No acute findings WBC 12.6, hemoglobin 16.5. D-dimer 0.27. Sodium 138, potassium 5.6, BUN 11 creatinine 0.54. Troponin negative x 3. Home cardiac medications: Amlodipine 5 mg daily, aspirin 81 mg daily, atorvastatin 40 mg at bedtime, Coreg 6.25 mg twice daily as needed. Dobutamine stress echocardiogram performed on 11/05/2023 reveals a negative stress test by EKG criteria and a negative dobutamine stress echo. Echocardiogram performed on 11/04/2023 revealed normal left ventricular function. Cardiac catheterization performed in September 2021 for chest pain revealed mild CAD including 30% stenosis of the proximal LAD and mid 30% stenosis of the RCA. Review Of Systems: At the time of my exam: CONSTITUTIONAL: Denies fever or chills. Reports fatigue HEENT: Denies blurred vision, vision changes, or eye pain. Denies hemoptysis CARDIOVASCULAR: Denies chest pain. Denies orthopnea. Denies PND. Denies palpitations RESPIRATORY: Denies shortness of breath. GASTROINTESTINAL: Denies abdominal pain. Denies nausea or vomiting. HEMATOLOGIC: Denies bleeding disorders. GENITOURINARY: Denies any blood in urine. SKIN: Denies pruitis. Denies rash. Physical examination: Gen: This is a 63-year-old female in no acute distress. VS: reviewed, blood pressure 139/88, heart rate 75, pulse ox 97% on room air. HEENT: Head is atraumatic, normocephalic. Pupils equal, round. Sclerae is anicteric. NECK: Supple. No JVD. LUNGS: Clear to auscultation. No wheezes or rhonchi. No intercostal retractions . HEART: Regular rate and rhythm. No murmur. ABDOMEN: Soft No tenderness. EXTREMITIES: No pedal edema. No calf tenderness. NEUROLOGICAL: Patient is awake, alert and oriented x3. Assessment: Atypical chest pain, acute coronary syndrome ruled out History of coronary artery disease Hyperlipidemia Hypertension Tobacco use and dependence Marijuana use Alcohol abuse Plan: Resume patient's home cardiac medications No cardiac workup at this time and patient is cleared for discharge May follow- up with Dr. Xiong in 1 to 2 weeks. Thank you kindly for this consultation. Nurse practitioner note has been reviewed, I agree with documented findings and plan of care. Patient was seen and examined. Past Medical History Past Medical History: Hearing Disorder / Deafness, Myocardial Infarction ([place]) Additional Past Medical History / Comment(s): STATES WT LOSS OF 40 # OVER LAST 7 MONTHS, POOR APPETITE , FATIGUE., NODULE ON LUNG. , PARTIALLY DEAF RIGHT EAR., STATES 3 LOOSE TEETH ., STATES HX OF FALL & INJURED LEFT KNEE AND RIGHT WRIST (10/2017)-STATES LIMPING, & CANNOT USE RIGHT WRIST. Last Myocardial Infarction Date:: na History of Any Multi-Drug Resistant Organisms: None Reported Past Surgical History: Heart Catheterization With Stent Additional Past Surgical History / Comment(s): D & C Past Anesthesia/Blood Transfusion Reactions: No Reported Reaction Past Psychological History: Anxiety, Depression Smoking Status: Current every day smoker Past Alcohol Use History: Heavy Past Drug Use History: Marijuana - Past Family History Mother Family Medical History: Blood Disorder Additional Family Medical History / Comment(s): PROTEIN C - DEFICIENCY. Daughter(s) Family Medical History: Blood Disorder Additional Family Medical History / Comment(s): UNKNOWN NAME OF BLOOD DISORDER. Medications and Allergies Home Medications Medication Instructions Recorded Confirmed Type Albuterol Sulfate [Ventolin HFA] 2 puff INHALATION RT-Q4H PRN 11/04/23 12/05/23 History Budesonide/Formoterol Fumarate 2 puff INHALATION RT-BID 11/04/23 12/05/23 History [Symbicort 160-4.5 Mcg Inhaler] Atorvastatin [Lipitor] 40 mg PO HS 30 Days #30 tab 11/05/23 12/05/23 Rx amLODIPine [Norvasc] 5 mg PO DAILY 30 Days #30 tab 11/05/23 12/05/23 Rx Aspirin EC [Ecotrin Low Dose] 81 mg PO DAILY 12/05/23 12/05/23 History Ergocalciferol (Vitamin D2) 1,250 mcg PO WE 12/05/23 12/05/23 History [Drisdol (50,000 Iu)] carvediloL [Coreg] 6.25 mg PO BID PRN 12/05/23 12/05/23 History Allergies Allergy/AdvReac Type Severity Reaction Status Date / Time No Known Allergies Allergy Verified 12/05/23 06:43 Physical Exam Vitals: Vital Signs Temp Pulse Pulse Resp BP Pulse Ox 12/05/23 06:17 74 16 167/96 96 12/05/23 06:05 75 16 163/103 97 12/05/23 03:00 78 16 145/87 96 12/05/23 02:40 73 16 150/112 97 12/05/23 01:19 78 16 156/106 97 12/05/23 00:13 73 12/05/23 00:09 98.1 F 80 18 161/92 100 Intake and Output 12/04/23 12/05/23 12/05/23 22:59 06:59 14:59 Other: Weight 49.895 kg Results 12/05/23 00:34 12/05/23 00:34 Cardiac Enzymes 12/05/23 12/05/23 12/05/23 Range/Units 00:34 00:34 04:52 AST 36 (14-36) U/L Troponin I <0.012 <0.012 (0.000-0.034) ng/mL Coagulation 12/05/23 Range/Units 00:34 PT 10.1 (10.0-12.5) sec APTT 21.3 L (22.0-30.0) sec CBC 12/05/23 Range/Units 00:34 WBC 12.6 H (3.8-10.6) k/uL RBC 4.72 (3.80-5.40) m/uL Hgb 16.5 H (11.4-16.0) gm/dL Hct 48.8 H (34.0-46.0) % Plt Count 231 (150-450) k/uL Comprehensive Metabolic Panel 12/05/23 Range/Units 00:34 Sodium 138 (137-145) mmol/L Potassium 5.6 H (3.5-5.1) mmol/L Chloride 110 H (98-107) mmol/L Carbon Dioxide 20 L (22-30) mmol/L BUN 11 (7-17) mg/dL Creatinine 0.54 (0.52-1.04) mg/dL Glucose 106 H (74-99) mg/dL Calcium 8.9 (8.4-10.2) mg/dL AST 36 (14-36) U/L ALT 18 (4-34) U/L Alkaline Phosphatase 101 (38-126) U/L Total Protein 7.8 (6.3-8.2) g/dL Albumin 4.3 (3.5-5.0) g/dL Current Medications Generic Name Dose Route Start Last Admin Trade Name Freq PRN Reason Stop Dose Admin Albuterol/Ipratropium 3 ml 12/05/23 06:27 Ipratropium-Albuterol 3 Ml Neb INHALATION RT-QID PRN Shortness Of Breath Or Wheezing Amlodipine Besylate 5 mg 12/05/23 09:00 Amlodipine 5 Mg Tab PO DAILY [facility] Atorvastatin Calcium 40 mg 12/05/23 21:00 Atorvastatin 40 Mg Tab PO HS [facility] Budesonide/Formoterol Fumarate 2 puff 12/05/23 08:00 Symbicort 160-4.5 Mcg Inhaler INHALATION RT-BID [facility] Carvedilol 1.563 mg 12/05/23 07:30 Carvedilol 1.563 Mg Tab PO BID-W/MEALS [facility] Naloxone HCl 0.2 mg 12/05/23 02:37 Naloxone 0.4 Mg/Ml 1 Ml Vial IV Q2M PRN Opioid Reversal Intake and Output 12/04/23 12/05/23 12/05/23 22:59 06:59 14:59 Other: Weight 49.895 kg 12/05/23 00:34 12/05/23 00:34
[2023-12-05] MEDS: PANTOPRAZOLE 40 MG TABLET PO SCH (10:26)
[2023-12-05] MEDS: ASPIRIN 81 MG PO SCH (10:26)
[2023-12-05] MEDS: amLODIPine 5 MG TAB PO SCH (10:26)
[2023-12-05 12:10] VITALS: BP 162/98; PULSE 70
[2023-12-05 12:15] LABS: HCT 47.7 % (34.0-46.0); HGB 15.5 gm/dL (11.4-16.0); MCH 33.8 pg (25.0-35.0); MCHC 32.5 g/dL (31.0-37.0); Macrocytosis Slight; Mean Platelet Volume 7.7; Platelet Count 218 k/uL (150-450); RBC 4.58 m/uL (3.80-5.40); RDW 13.1 % (11.5-15.5); WBC 9.9 k/uL (3.8-10.6)
[2023-12-05 12:17] LABS: African American GFR (CKD) >90 (>60 ml/min/1.73 sqM); Anion Gap 6 mmol/L; Blood Urea Nitrogen 10 mg/dL (7-17); Calcium 9.2 mg/dL (8.4-10.2); Carbon Dioxide 24 mmol/L (22-30); Chloride 107 mmol/L (98-107); Glucose 90 mg/dL (74-99); Non-African American GFR(CKD) >90 (>60 ml/min/1.73 sqM); Potassium 4.5 mmol/L (3.5-5.1); Sodium 137 mmol/L (137-145)
[2023-12-05 14:09] VITALS: BMI 18.8
--- NOTE | 2023-12-05 15:37 | P.DS ---
Providers Date of admission: 12/05/23 02:37 Expected date of discharge: 12/05/23 Attending physician: Singh De Los Santos MD Consults: 12/05/23 02:37 Consult Physician Urgent Consulting Provider: [facility] Consult Reason/Comments: acute chest pain Do you want consulting provider notified?: Yes Primary care physician: Rafa Lobato MD Hospital Course: Discharge Diagnosis: Chest pain, acute coronary event ruled out. Patient reports increased stressors in her life, cardiology clearing patient from cardiac perspective. Patient's pain may be secondary to GERD/reflux versus underlying anxiety as patient reports she is going through a bad divorce after 40 years of marriage and has significant stress at home. Patient being discharged home on Protonix 40 mg daily and hydroxyzine 25 mg 4 times daily as needed for anxiety. Leukocytosis, believed to be reactive and has resolved. Hyperkalemia, secondary to hemolysis. Repeat potassium 4.5. Polycythemia, likely secondary to daily nicotine use and COPD. COPD with continued nicotine dependence, not in acute exacerbation. Recommend smoking cessation.Continue Symbicort 2 puffs twice daily and as needed Ventolin inhaler for shortness of breath and/or wheezing. Hypertension. Continue amlodipine 5 mg daily and carvedilol 6.25 mg twice daily. Hyperlipidemia. Patient discharged home on atorvastatin 40 mg daily. Coronary artery disease. Continue cardiac medication regimen with aspirin 81 mg daily, amlodipine 5 mg daily, and carvedilol 6.25 mg twice daily. Anxiety with depression. Patient reported increased social stressors currently undergoing a divorce after 40 years of marriage, patient was started on hydroxyzine 25 mg 4 times daily as needed for anxiety. Previously known lung nodule. Continue to follow-up outpatient for long-term monitoring/management and/for further testing if indicated. History of alcohol abuse (states stopped drinking 9 months ago). Hospital Course: Patient is a very pleasant 63-year-old female with a past medical history of CAD, hypertension, lung nodule, anxiety and depression, alcohol use/abuse, and COPD with continued nicotine dependence. She presented to the emergency department with a chief complaint of chest pain. She has recently undergone multiple hospitalizations for reports of chest pain and reports multiple stressors in her life recently. Patient reports she is currently undergoing a bad divorce after 40 years of marriage. She underwent evaluation in the emergency department. Vital signs upon arrival show blood pressure 161/92, heart rate 80, respiratory rate 18, temp 98.1 F, and SpO2 100% on room air. EKG was completed showing normal sinus rhythm at 68 bpm with T wave inversion in lead aVL which is unchanged from previous EKGs completed with most recent completed 11/04/2023. Chest x-ray completed negative for acute cardiopulmonary process. Labs completed and reviewed. CBC initially showing leukocytosis with WBC count of 12.6 and polycythemia with hemoglobin of 16.5. Coagulation profile showing a low PTT of 21.3 and a normal D-dimer of 0.27. BMP was a hemolyzed specimen but did reveal hyperkalemia with potassium of 5.6, chloride 110, bicarb of 20, and anion gap of 8 with normal renal function. Blood glucose 106. Liver profile unremarkable. Magnesium 1.9. Troponin was negative at less than 0.012. Patient was admitted under our services with consultation to cardiology. Troponins were trended throughout the night and all were negative at less than 0.012 x 3 draws. Patient underwent a CTA aorta chest/abdomen/pelvis which revealed no evidence for aortic dissection or aneurysm and no evidence for pulmonary emboli showing COPD with mild to moderate emphysema. Patient was evaluated by cardiology clearing patient from their perspective for discharge. Medically, patient is stable at this time. Had long discussion with patient at bedside, her complaints of chest pain possibly associated with anxiety and und erlying GERD. Patient was started on Protonix 40 mg daily in addition to hydroxyzine 25 mg 4 times daily as needed for anxiety. Patient instructed she will need to follow-up outpatient with her PCP in 1 to 2 days and with game artist in 1 to 2 weeks. Physical exam: Vital signs reviewed and stable. General: Nontoxic, no distress and appears stated age. Derm: Skin warm and dry, normal coloration for ethnicity. Head: Atraumatic, normocephalic and symmetric. Eyes: EOMs intact, no lid lag, and anicteric sclera Mouth: no lip lesions, mucus membranes moist Cardiovascular: regular rate and rhythm with normal S1S2, no murmur, positive posterior tibial pulses bilaterally, and cap refill < 2 seconds. Lungs: Respirations even, regular, and unlabored on room air. Lungs CTA bilaterally, no rhonchi, no rales, no wheezing, and no accessory muscle usage. Abdominal: soft, nontender to palpation, no guarding, no appreciable orga nomegaly Ext: ROM intact. No gross muscle atrophy, no edema, no contractures Neuro: Speech clear, face symmetrical and CN II-XII grossly intact with no noted focal neuro deficits Psych: Alert and oriented to person, place, time, and situation. Appropriate and pleasant affect. A total of 32 minutes of time were spent preparing this complex discharge summary. Pt was discharged on 12/05/2023 at 12:37 PM. Patient was seen independently by Nurse Practitioner. This document was prepared using [employer] dictation software. Please allow for errors in fitter placer while rare they do occur. Charanjit Pace NP rendered care for this patient independently, reviewed the findings and plan as documented in the note above. I did not physically speak with or examine the patient on this date. Patient Condition at Discharge: Stable Plan - Discharge Summary New Discharge Prescriptions: New Pantoprazole [Protonix] 40 mg PO AC-BRKFST 30 Days #30 tab hydrOXYzine HCL [Atarax] 25 mg PO QID PRN #120 tab PRN Reason: Anxiety Continue Budesonide/Formoterol Fumarate [Symbicort 160-4.5 Mcg Inhaler] 2 puff INHALATION RT-BID Atorvastatin [Lipitor] 40 mg PO HS 30 Days #30 tab Aspirin EC [Ecotrin Low Dose] 81 mg PO DAILY Ergocalciferol (Vitamin D2) [Drisdol (50,000 Iu)] 1,250 mcg PO WE Albuterol Sulfate [Ventolin HFA] 2 puff INHALATION RT-Q4H PRN PRN Reason: Shortness Of Breath amLODIPine [Norvasc] 5 mg PO DAILY 30 Days #30 tab carvediloL [Coreg] 6.25 mg PO BID PRN PRN Reason: Chest Pain Discharge Medication List Albuterol Sulfate [Ventolin HFA] 2 puff INHALATION RT-Q4H PRN 11/04/23 [History] Budesonide/Formoterol Fumarate [Symbicort 160-4.5 Mcg Inhaler] 2 puff INHALATION RT-BID 11/04/23 [History] Atorvastatin [Lipitor] 40 mg PO HS 30 Days #30 tab 11/05/23 [Rx] amLODIPine [Norvasc] 5 mg PO DAILY 30 Days #30 tab 11/05/23 [Rx] Aspirin EC [Ecotrin Low Dose] 81 mg PO DAILY 12/05/23 [History] Ergocalciferol (Vitamin D2) [Drisdol (50,000 Iu)] 1,250 mcg PO WE 12/05/23 [History] Pantoprazole [Protonix] 40 mg PO AC-BRKFST 30 Days #30 tab 12/05/23 [Rx] carvediloL [Coreg] 6.25 mg PO BID PRN 12/05/23 [History] hydrOXYzine HCL [Atarax] 25 mg PO QID PRN #120 tab 12/05/23 [Rx] Follow up Appointment(s)/Referral(s): Tony Xiong DO [STAFF PHYSICIAN] - 12/12/23 8:30 am Rafa Lobato MD [Primary Care Provider] - 1-2 days Activity/Diet/Wound Care/Special Instructions: Activity: As tolerated. Take breaks as needed. Diet: Heart healthy and carb consistent diet. Avoid salts, or foods with hidden salts such as canned or boxed foods and frozen dinners. Extra salt makes your heart work harder and traps the fluid in your body for longer. Special Instructions: Take all of your medications as directed and remember to keep all of your doctor's appointments and follow-up as needed. Thank you for allowing us to participate in your care, it was truly a pleasure having you for our patient!!! . Discharge Disposition: HOME SELF-CARE
[2023-12-05] MEDS ORDERED: ATORVASTATIN 40 MG TAB PO SCH (21:00)
== END 2023-12-05 14:30 | disposition home or self-care (01) ==
LOC: EC 00:08 → 6NMEDSUR 02:37
PROVIDERS: ADMIT Internal Medicine; ATTEND Internal Medicine
DX: R07.2 Precordial pain (principal); F17.200 Nicotine dependence, unspecified, uncomplicated; F12.90 Cannabis use, unspecified, uncomplicated
CPT/HCPCS: 36415; 94640; 93005; 85379; 80053; 80048; 83690; 83735; 84484; 85025; 85027; 85610; 85730; 71046; 71275; 74174; 99285; G0378; Q9967

== ENCOUNTER 2024-01-10 18:14 | Observation (INO) | payer OTHER ==
--- NOTE | 2024-01-10 18:24 | ED ---
General Adult HPI - General Stated complaint: Syncope Time Seen by Provider: 01/10/24 18:15 Source: patient, EMS, RN notes reviewed Mode of arrival: EMS Limitations: no limitations - History of Present Illness Initial comments: Patient is a 63-year-old female present to the emergency department with chest discomfort. Incident started prior to arrival. Patient had chest tightness that was severe. Patient took a nitro. Patient did have a syncopal episode. Patient did vomit following this. Patient is now currently symptom-free. Patient does have history of previous cardiac problems and chest discomfort however this does not feel similar. No dyspnea. No injury - Related Data Home Medications Medication Instructions Recorded Confirmed Albuterol Sulfate [Ventolin HFA] 2 puff INHALATION RT-Q4H PRN 11/04/23 01/10/24 Budesonide/Formoterol Fumarate 2 puff INHALATION RT-BID 11/04/23 01/10/24 [Symbicort 160-4.5 Mcg Inhaler] Aspirin EC [Ecotrin Low Dose] 81 mg PO DAILY 12/05/23 01/10/24 Ergocalciferol (Vitamin D2) 1,250 mcg PO WE 12/05/23 01/10/24 [Drisdol (50,000 Iu)] carvediloL [Coreg] 6.25 mg PO BID PRN 12/05/23 01/10/24 Nitroglycerin Sl Tabs [Nitrostat] 0.4 mg SUBLINGUAL Q5M PRN 01/10/24 01/10/24 Previous Rx's Medication Instructions Recorded Atorvastatin [Lipitor] 40 mg PO HS 30 Days #30 tab 11/05/23 amLODIPine [Norvasc] 5 mg PO DAILY 30 Days #30 tab 11/05/23 Pantoprazole [Protonix] 40 mg PO AC-BRKFST 30 Days #30 tab 12/05/23 hydrOXYzine HCL [Atarax] 25 mg PO QID PRN #120 tab 12/05/23 Allergies Allergy/AdvReac Type Severity Reaction Status Date / Time No Known Allergies Allergy Verified 01/10/24 20:57 Review of Systems ROS Statement: Those systems with pertinent positive or pertinent negative responses have been documented in the HPI. ROS Other: All systems not noted in ROS Statement are negative. Constitutional: Denies: fever Eyes: Denies: eye pain ENT: Denies: ear pain Respiratory: Reports: as per HPI Cardiovascular: Reports: chest pain Endocrine: Denies: fatigue Gastrointestinal: Reports: vomiting. Denies: abdominal pain Neurological: Denies: headache, weakness Past Medical History Past Medical History: Hearing Disorder / Deafness, Myocardial Infarction ([place]) Additional Past Medical History / Comment(s): STATES WT LOSS OF 40 # OVER LAST 7 MONTHS, POOR APPETITE , FATIGUE., NODULE ON LUNG. , PARTIALLY DEAF RIGHT EAR., STATES 3 LOOSE TEETH ., STATES HX OF FALL & INJURED LEFT KNEE AND RIGHT WRIST (10/2017)-STATES LIMPING, & CANNOT USE RIGHT WRIST. Last Myocardial Infarction Date:: na History of Any Multi-Drug Resistant Organisms: None Reported Past Surgical History: Heart Catheterization With Stent Additional Past Surgical History / Comment(s): D & C Past Anesthesia/Blood Transfusion Reactions: No Reported Reaction Date of Last Stent Placement:: 2022 Past Psychological History: Anxiety, Depression Additional Psychological History / Comment(s): STATES RECENT ANXIETY & DEPRESSION D/T HEALTH PROBLEMS. Smoking Status: Current every day smoker Past Alcohol Use History: Heavy Additional Past Alcohol Use History / Comment(s): STATES HX OF HEAVY ALCOHOL USE- QUIT 0412-7206. STARTED SMOKING AGE 11, QUIT AGE 41., SMOKED 1 PPD. Past Drug Use History: Marijuana Additional Drug Use History / Comment(s): STATES OCCASIONAL MARIJUANA USE TO INCREASE APPETITE. - Past Family History Mother Family Medical History: Blood Disorder Additional Family Medical History / Comment(s): PROTEIN C - DEFICIENCY. Daughter(s) Family Medical History: Blood Disorder Additional Family Medical History / Comment(s): UNKNOWN NAME OF BLOOD DISORDER. General Exam Limitations: no limitations General appearance: alert, in no apparent distress Head exam: Present: atraumatic Eye exam: Present: normal appearance, PERRL, EOMI Neck exam: Present: normal inspection. Absent: tenderness Respiratory exam: Present: normal lung sounds bilaterally Cardiovascular Exam: Present: regular rate, normal rhythm, normal heart sounds Expanded Peripheral pulses: 2+: Radial (R), Radial (L), Dorsalis Pedis (R), Dorsalis Pedis (L) GI/Abdominal exam: Present: soft. Absent: tenderness Extremities exam: Present: normal inspection. Absent: pedal edema, calf tenderness Neurological exam: Present: alert, oriented X3, CN II-XII intact. Absent: motor sensory deficit Expanded Neurological exam: Present: protecting the airway Speech: Present: fluid speech Cranial nerves: EOM's Intact: Normal Motor strength exam: RUE: 5, LUE: 5, RLE: 5, LLE: 5 Eye Response: (4) open spontaneously Motor Response: (6) obeys commands Verbal Response: (5) oriented Psychiatric exam: Present: normal affect, normal mood Skin exam: Present: normal color Course Vital Signs 01/10/24 01/10/24 01/10/24 18:35 18:56 19:11 Pulse Rate 88 85 92 Respiratory 17 14 17 Rate Blood Pressure 117/79 115/82 115/76 O2 Sat by Pulse 98 98 99 Oximetry EKG Findings - EKG Results: EKG: interpreted by MARKD, sinus rhythm, normal axis, normal QRS, normal ST/T Medical Decision Making - Medical Decision Making Was pt. sent in by a medical professional or institution (, PA, [employer], urgent care, hospital, or senior living...) When possible be specific @ -No Did you speak to anyone other than the patient for history (EMS, parent, family, police, friend...)? What history was obtained from this source @ -No Did you review nursing and triage notes (agree or disagree)? Why? @ -I reviewed and agree with nursing and triage notes Were old charts reviewed (outside hosp., previous admission, EMS record, old EKG, old radiological studies, urgent care reports/EKG's, senior living records)? Report findings @ -No old charts were reviewed Differential Diagnosis (chest pain, altered mental status, abdominal pain women, abdominal pain men, vaginal bleeding, weakness, fever, dyspnea, syncope, headache, dizziness, GI bleed, back pain, seizure, CVA, palpatations, mental health, musculoskeletal)? @ -MDM differential chest differential Chest Pain: Stable Angina, Unstable Angina, STEMI, NSTEMI Aortic Dissection, Pneumothorax, Musculoskeletal, Esophageal Spasm GERD, Cholecystitis, Pancreatitis, Zoster, this is not meant to be an all-inclusive list. EKG interpreted by me (3pts min.). @ -As above X-rays interpreted by me (1pt min.). @ -Chest x-ray shows no acute process CT interpreted by me (1pt min.). @ -None done U/S interpreted by me (1pt. min.). @ -None done What testing was considered but not performed or refused? (CT, X-rays, U/S, labs)? Why? @ -None What meds were considered but not given or refused? Why? @ -None Did you discuss the management of the patient with other professionals (professionals i.e. , PA, [employer], lab, RT, psych nurse, psychiatric social worker supervisor, hydraulic controls technician, teacher, public relations officer, special education case manager)? Give summary @ -Case discussed with Dr. Shoemaker who will admit covering Dr. Tam Was smoking cessation discussed for >3mins.? @ -No Was critical care preformed (if so, how long)? @ -No Were there social determinants of health that impacted care today? How? (Homelessness, low income, unemployed, alcoholism, drug addiction, transportation, low edu. Level, literacy, decrease access to med. care, fdc, rehab)? @ -No Was there de-escalation of care discussed even if they declined (Discuss DNR or withdrawal of care, Hospice)? DNR status @ -No What co-morbidities impacted this encounter? (DM, HTN, Smoking, COPD, CAD, Cancer, CVA, ARF, Chemo, Hep., AIDS, mental health diagnosis, sleep apnea, morbid obesity)? @ -None Was patient admitted / discharged? Hospital course, mention meds given and route, prescriptions, significant lab abnormalities, going to OR and other pertinent info. @ -Patient presents with chest pain followed with syncope. Patient symptom- free even on reevaluation. Patient will be admitted with cardiac consult. Adm ission orders written Undiagnosed new problem with uncertain prognosis? @ -No Drug Therapy requiring intensive monitoring for toxicity (Heparin, Nitro, Insulin, Cardizem)? @ -No Were any procedures done? @ -No Diagnosis/symptom? @ -Chest pain, syncope Acute, or Chronic, or Acute on Chronic? @ -Acute, acute Uncomplicated (without systemic symptoms) or Complicated (systemic symptoms)? @ -Default Side effects of treatment? @ -No Exacerbation, Progression, or Severe Exacerbation? @ -No Poses a threat to life or bodily function? How? (Chest pain, [place], [place], pneumonia, PE, COPD, DKA, ARF, appy, cholecystitis, CVA, Diverticulitis, Homicidal, Suicidal, threat to staff... and all critical care pts) @ -No - Lab Data Result diagrams: 01/10/24 18:29 01/10/24 18:29 Lab Results 01/10/24 01/10/24 01/10/24 Range/Units 18:29 18:29 18:29 WBC 10.6 (3.8-10.6) k/uL RBC 4.01 (3.80-5.40) m/uL Hgb 13.4 (11.4-16.0) gm/dL Hct 41.1 (34.0-46.0) % MCV 102.7 H (80.0-100.0) fL MCH 33.3 (25.0-35.0) pg MCHC 32.5 (31.0-37.0) g/dL RDW 13.1 (11.5-15.5) % Plt Count 276 (150-450) k/uL MPV 7.6 Neutrophils % 63 % Lymphocytes % 25 % Monocytes % 5 % Eosinophils % 6 % Basophils % 1 % Neutrophils # 6.7 (1.3-7.7) k/uL Lymphocytes # 2.7 (1.0-4.8) k/uL Monocytes # 0.5 (0-1.0) k/uL Eosinophils # 0.6 (0-0.7) k/uL Basophils # 0.1 (0-0.2) k/uL Macrocytosis Slight PT 9.8 L (10.0-12.5) sec INR 0.9 (<1.2) APTT 21.6 L (22.0-30.0) sec D-Dimer 0.37 (<0.60) mg/L FEU Sodium 137 (137-145) mmol/L Potassium 4.4 (3.5-5.1) mmol/L Chloride 108 H (98-107) mmol/L Carbon Dioxide 24 (22-30) mmol/L Anion Gap 5 mmol/L BUN 11 (7-17) mg/dL Creatinine 0.70 (0.52-1.04) mg/dL Est GFR (CKD-EPI)AfAm >90 (>60 ml/min/1.73 sqM) Est GFR (CKD-EPI)NonAf >90 (>60 ml/min/1.73 sqM) Glucose 96 (74-99) mg/dL Calcium 8.5 (8.4-10.2) mg/dL Magnesium 1.6 (1.6-2.3) mg/dL Total Bilirubin 0.3 (0.2-1.3) mg/dL AST 18 (14-36) U/L ALT 13 (4-34) U/L Alkaline Phosphatase 76 (38-126) U/L Troponin I (0.000-0.034) ng/mL Total Protein 6.1 L (6.3-8.2) g/dL Albumin 3.6 (3.5-5.0) g/dL Amylase 105 (30-110) U/L Lipase 89 (23-300) U/L 01/10/24 Range/Units 18:29 WBC (3.8-10.6) k/uL RBC (3.80-5.40) m/uL Hgb (11.4-16.0) gm/dL Hct (34.0-46.0) % MCV (80.0-100.0) fL MCH (25.0-35.0) pg MCHC (31.0-37.0) g/dL RDW (11.5-15.5) % Plt Count (150-450) k/uL MPV Neutrophils % % Lymphocytes % % Monocytes % % Eosinophils % % Basophils % % Neutrophils # (1.3-7.7) k/uL Lymphocytes # (1.0-4.8) k/uL Monocytes # (0-1.0) k/uL Eosinophils # (0-0.7) k/uL Basophils # (0-0.2) k/uL Macrocytosis PT (10.0-12.5) sec INR (<1.2) APTT (22.0-30.0) sec D-Dimer (<0.60) mg/L FEU Sodium (137-145) mmol/L Potassium (3.5-5.1) mmol/L Chloride (98-107) mmol/L Carbon Dioxide (22-30) mmol/L Anion Gap mmol/L BUN (7-17) mg/dL Creatinine (0.52-1.04) mg/dL Est GFR (CKD-EPI)AfAm (>60 ml/min/1.73 sqM) Est GFR (CKD-EPI)NonAf (>60 ml/min/1.73 sqM) Glucose (74-99) mg/dL Calcium (8.4-10.2) mg/dL Magnesium (1.6-2.3) mg/dL Total Bilirubin (0.2-1.3) mg/dL AST (14-36) U/L ALT (4-34) U/L Alkaline Phosphatase (38-126) U/L Troponin I <0.012 (0.000-0.034) ng/mL Total Protein (6.3-8.2) g/dL Albumin (3.5-5.0) g/dL Amylase (30-110) U/L Lipase (23-300) U/L Disposition Clinical Impression: Chest pain, Syncope Disposition: ADMITTED IP TO THIS HOSP Is patient prescribed a controlled substance at d/c from ED?: No Referrals: Rafa Lobato MD [Primary Care Provider] - 1-2 days Time of Disposition: 21:14
[2024-01-10 18:36] LABS: Basophils # (A) 0.1 k/uL (0-0.2); Basophils % (A) 1 %; Eosinophils # (A) 0.6 k/uL (0-0.7); Eosinophils % (A) 6 %; HCT 41.1 % (34.0-46.0); HGB 13.4 gm/dL (11.4-16.0); Lymphocytes # (A) 2.7 k/uL (1.0-4.8); Lymphocytes % (A) 25 %; MCH 33.3 pg (25.0-35.0); MCHC 32.5 g/dL (31.0-37.0); MCV 102.7 fL (80.0-100.0); Macrocytosis Slight; Mean Platelet Volume 7.6; Monocytes # (A) 0.5 k/uL (0-1.0); Monocytes % (A) 5 %; Neutrophils # (A) 6.7 k/uL (1.3-7.7); Neutrophils % (A) 63 %; Platelet Count 276 k/uL (150-450); RBC 4.01 m/uL (3.80-5.40); RDW 13.1 % (11.5-15.5); WBC 10.6 k/uL (3.8-10.6)
[2024-01-10 18:52] LABS: ALT 13 U/L (4-34); AST 18 U/L (14-36); African American GFR (CKD) >90 (>60 ml/min/1.73 sqM); Albumin 3.6 g/dL (3.5-5.0); Alkaline Phosphatase 76 U/L (38-126); Amylase 105 U/L (30-110); Anion Gap 5 mmol/L; Blood Urea Nitrogen 11 mg/dL (7-17); Calcium 8.5 mg/dL (8.4-10.2); Carbon Dioxide 24 mmol/L (22-30); Chloride 108 mmol/L (98-107); Glucose 96 mg/dL (74-99); Lipase 89 U/L (23-300); Magnesium 1.6 mg/dL (1.6-2.3); Non-African American GFR(CKD) >90 (>60 ml/min/1.73 sqM); Potassium 4.4 mmol/L (3.5-5.1); Sodium 137 mmol/L (137-145); Total Bilirubin 0.3 mg/dL (0.2-1.3); Total Protein 6.1 g/dL (6.3-8.2)
[2024-01-10] MEDS: ASPIRIN 81 MG PO STA (18:55)
--- NOTE | 2024-01-10 19:04 | XR ---
EXAMINATION TYPE: XR chest 2V DATE OF EXAM: 01/10/2024 COMPARISON: 12/05/2023 HISTORY: Shortness of breath TECHNIQUE: Frontal and lateral views of the chest are obtained. FINDINGS: Scattered senescent parenchymal changes noted. Hyperinflation compatible with COPD. No evidence for infiltrate. No evidence for atelectasis. Heart size is stable. Mediastinal structures are stable and grossly unremarkable. No evidence for hilar prominence. Degenerative changes dorsal spine. IMPRESSION: 1. No evidence for acute pulmonary disease.
[2024-01-10 19:14] LABS: INR 0.9 (<1.2); Partial Thromboplastin Time 21.6 sec (22.0-30.0); Prothrombin Time 9.8 sec (10.0-12.5)
[2024-01-10] MEDS ORDERED: ALBUTEROL NEBULIZED 2.5 MG/3 ML INHALATION PRN (21:14)
[2024-01-10] MEDS ORDERED: carvediloL 6.25 MG TAB PO PRN (21:14)
[2024-01-10] MEDS ORDERED: NITROGLYCERIN SL TABS 0.4 MG TAB SUBLINGUAL PRN (21:15)
[2024-01-10] MEDS ORDERED: hydrOXYzine HCL 25 MG TAB PO PRN (22:00)
[2024-01-11] MEDS: NITROGLYCERIN OINT 1 INCH/GM PACKET TOPICAL SCH (01:06)
--- NOTE | 2024-01-11 03:09 | P.HPIM ---
History of Present Illness H&P Date: 01/10/24 Patient is a 63-year-old female with a PMH of CAD, hypertension, hyperlipidemia, anxiety, who presents to the emergency room with complaints of chest discomfort and loss of consciousness. Patient reports she was at her usual state of health until this evening she was sitting in a chair at home when she suddenly developed left-sided chest tightness, nonpleuritic. The pain was 8 out of 10 at maximal intensity, for which she attempted to take a sublingual nitroglycerin. Within a minute of taking the nitroglycerin, the patient reportedly lost consciousness, first slumping onto a chair and subsequently sliding down to the ground with no reports of injury. The patient woke up within a minute or 2 to her shaking her. There were no reports of urinary incontinence or shaking movements. Patient also denied tongue biting. She did report feeling nauseous and diaphoretic. Noted that the pain improved on the way to the hospital and she currently feels essentially at her baseline. Denies experiencing fever, chills, cough, lower extremity swelling, or lower extremity pain. Denies any further dizziness or lightheadedness. Chest x-ray in the emergency room was unremarkable. EKG revealed sinus rhythm at [address]/T wave changes noted as reviewed by me. Laboratory evalua tion was remarkable for troponin less than 0.012, with MCV 102.7, WBC normal 10.6, hemoglobin 13.4, sodium 137. ED documentation reviewed and case discussed with ED provider. Review of systems: Pertinent positives and negatives as discussed in HPI, a complete review of systems was performed and all other systems are negative. Physical examination: Vital signs reviewed General: non toxic, no distress, appears at stated age, normal weight Derm: no unusual rashes/lesions, warm Head: atraumatic, normocephalic, symmetric Eyes: EOMI, no lid lag, anicteric sclera, pupils equal round reactive to light ENT: Nose and ears atraumatic Neck: No cervical lymphadenopathy, trachea midline, supple Mouth: no lip lesion, mucus membranes moist Cardiovascular: S1S2 reg, no murmur, positive dorsalis pedis pulse bilateral, no edema Lungs: CTA bilateral, no rhonchi, no rales, no accessory muscle use Abdominal: soft, nontender to palpation, no guarding Ext: muscle strength 5 out of 5 in all 4 extremities grossly, no gross muscle atrophy, no contractures, Neuro: CN II-XI grossly intact, no gross focal neuro deficits Psych: Alert, oriented, appropriate affect Assessment: Chest pain, rule out ACS Syncope, suspect due to orthostatic hypotension likely due to nitroglycerin versus arrhythmia Chronic conditions: Hypertension, hyperlipidemia, anxiety Imaging: Chest x-ray in the emergency room was unremarkable. EKG revealed sinus rhythm at [address]/T wave changes noted as reviewed by me. Data Review: Laboratory evaluation was remarkable for troponin less than 0.012, with MCV 102.7, WBC normal 10.6, hemoglobin 13.4, sodium 137. Plan: Cardiology consulted Cardiac monitoring Trend troponin Continue with aspirin and statin Resume home medications Fall precautions DVT prophylaxis: Lovenox subcu The patient is admitted with an anticipated [] than 2 midnight stay for evaluation of [] CODE STATUS: Full Code Discussed with: Patient Anticipated discharge place: Home Past Medical History Past Medical History: Hearing Disorder / Deafness, Myocardial Infarction ([place]) Additional Past Medical History / Comment(s): STATES WT LOSS OF 40 # OVER LAST 7 MONTHS, POOR APPETITE , FATIGUE., NODULE ON LUNG. , PARTIALLY DEAF RIGHT EAR., STATES 3 LOOSE TEETH ., STATES HX OF FALL & INJURED LEFT KNEE AND RIGHT WRIST (10/2017)-STATES LIMPING, & CANNOT USE RIGHT WRIST. Last Myocardial Infarction Date:: na History of Any Multi-Drug Resistant Organisms: None Reported Past Surgical History: Heart Catheterization With Stent Additional Past Surgical History / Comment(s): D & C Past Anesthesia/Blood Transfusion Reactions: No Reported Reaction Date of Last Stent Placement:: 2022 Past Psychological History: Anxiety, Depression Additional Psychological History / Comment(s): STATES RECENT ANXIETY & DEPRESSION D/T HEALTH PROBLEMS. Smoking Status: Current every day smoker Past Alcohol Use History: Heavy Additional Past Alcohol Use History / Comment(s): STATES HX OF HEAVY ALCOHOL USE- QUIT [id number]. STARTED SMOKING AGE 11, QUIT AGE 41., SMOKED 1 PPD. Past Drug Use History: Marijuana Additional Drug Use History / Comment(s): STATES OCCASIONAL MARIJUANA USE TO INCREASE APPETITE. - Past Family History Mother Family Medical History: Blood Disorder Additional Family Medical History / Comment(s): PROTEIN C - DEFICIENCY. Daughter(s) Family Medical History: Blood Disorder Additional Family Medical History / Comment(s): UNKNOWN NAME OF BLOOD DISORDER. Medications and Allergies Home Medications Medication Instructions Recorded Confirmed Type Albuterol Sulfate [Ventolin HFA] 2 puff INHALATION RT-Q4H PRN 11/04/23 01/10/24 History Budesonide/Formoterol Fumarate 2 puff INHALATION RT-BID 11/04/23 01/10/24 History [Symbicort 160-4.5 Mcg Inhaler] Atorvastatin [Lipitor] 40 mg PO HS 30 Days #30 tab 11/05/23 01/10/24 Rx amLODIPine [Norvasc] 5 mg PO DAILY 30 Days #30 tab 11/05/23 01/10/24 Rx Aspirin EC [Ecotrin Low Dose] 81 mg PO DAILY 12/05/23 01/10/24 History Ergocalciferol (Vitamin D2) 1,250 mcg PO WE 12/05/23 01/10/24 History [Drisdol (50,000 Iu)] Pantoprazole [Protonix] 40 mg PO AC-BRKFST 30 Days #30 tab 12/05/23 01/10/24 Rx carvediloL [Coreg] 6.25 mg PO BID PRN 12/05/23 01/10/24 History hydrOXYzine HCL [Atarax] 25 mg PO QID PRN #120 tab 12/05/23 01/10/24 Rx Nitroglycerin Sl Tabs [Nitrostat] 0.4 mg SUBLINGUAL Q5M PRN 01/10/24 01/10/24 History Allergies Allergy/AdvReac Type Severity Reaction Status Date / Time No Known Allergies Allergy Verified 01/10/24 20:57 Physical Exam Vitals: Vital Signs Pulse Resp BP Pulse Ox 01/10/24 21:41 84 18 121/88 96 01/10/24 19:11 92 17 115/76 99 01/10/24 18:56 85 14 115/82 98 01/10/24 18:35 88 17 117/79 98 Intake and Output 01/10/24 01/10/24 01/11/24 14:59 22:59 06:59 Other: Weight 51.256 kg Results CBC & Chem 7: 01/10/24 18:29 01/10/24 18:29 Labs: Abnormal Lab Results - Last 24 Hours (Table) 01/10/24 01/10/24 01/10/24 Range/Units 18:29 18:29 18:29 MCV 102.7 H (80.0-100.0) fL PT 9.8 L (10.0-12.5) sec APTT 21.6 L (22.0-30.0) sec Chloride 108 H (98-107) mmol/L Total Protein 6.1 L (6.3-8.2) g/dL
[2024-01-11] MEDS: PANTOPRAZOLE 40 MG TABLET PO SCH (08:14)
[2024-01-11] MEDS: SYMBICORT 160-4.5 MCG INHALER INHALATION SCH (08:17)
[2024-01-11] MEDS: ASPIRIN 325 MG TAB PO SCH (08:53)
[2024-01-11] MEDS: amLODIPine 5 MG TAB PO SCH (08:53)
[2024-01-11] MEDS: ENOXAPARIN 40 MG/0.4 ML SYRINGE SQ SCH (08:53)
[2024-01-11] MEDS ORDERED: ASPIRIN 81 MG PO SCH (09:00)
[2024-01-11 10:13] LABS: Chol/HDL Ratio 4.65 Ratio; LDL Cholesterol,Calculated 147.9 mg/dL (0.0-131.0); VLDL Calculation 19.32 mg/dL (5.00-40.00)
--- NOTE | 2024-01-11 11:49 | P.CRDCN ---
History of Present Illness Consult date: 01/11/24 Requesting physician: Alondra Shoemaker Reason for Consult (text): cp, syncope Chief complaint: left side pain, syncope History of present illness: This is a pleasant 63-year-old female patient who follows with Dr. Xiong in the office. She has a history of hypertension, hyperlipidemia, anxiety, mild CAD by heart cath in September 2021. She smokes about 1/2 cigarettes/day and uses THC Gummies. She presented with pain that extended from her left hip up to her left axilla quite severe and gripping. She walked in to talk to her about the issue she was having and he gave her nitroglycerin at which time she became quite clammy lost consciousness and started vomiting. She was out for couple minutes and upon waking her pain was better. Of note patient did have a dobutamine stress echo in October of this year that was normal and an echocardiogram that showed an ejection fraction of 65 to 70%. EKG and cardiac enzymes have been unremarkable. She has been chest pain-free. She has no s hortness of breath, orthopnea or PND. She has no edema. She has had no exertional chest discomfort. She is somewhat limited by her knee pain but stable. She has had no palpitations, dizziness or lightheadedness. Past Medical History Past Medical History: Hearing Disorder / Deafness, Myocardial Infarction (HI) Additional Past Medical History / Comment(s): STATES WT LOSS OF 40 # OVER LAST 7 MONTHS, POOR APPETITE , FATIGUE., NODULE ON LUNG. , PARTIALLY DEAF RIGHT EAR., STATES 3 LOOSE TEETH ., STATES HX OF FALL & INJURED LEFT KNEE AND RIGHT WRIST (10/2017)-STATES LIMPING, & CANNOT USE RIGHT WRIST. Last Myocardial Infarction Date:: na History of Any Multi-Drug Resistant Organisms: None Reported Past Surgical History: Heart Catheterization With Stent Additional Past Surgical History / Comment(s): D & C Past Anesthesia/Blood Transfusion Reactions: No Reported Reaction Date of Last Stent Placement:: 2022 Past Psychological History: Anxiety, Depression Additional Psychological History / Comment(s): STATES RECENT ANXIETY & D EPRESSION D/T HEALTH PROBLEMS. Smoking Status: Current every day smoker Past Alcohol Use History: Heavy Additional Past Alcohol Use History / Comment(s): STATES HX OF HEAVY ALCOHOL USE- QUIT [id number]. STARTED SMOKING AGE 11, QUIT AGE 41., SMOKED 1 PPD. Past Drug Use History: Marijuana Additional Drug Use History / Comment(s): STATES OCCASIONAL MARIJUANA USE TO INCREASE APPETITE. - Past Family History Mother Family Medical History: Blood Disorder Additional Family Medical History / Comment(s): PROTEIN C - DEFICIENCY. Daughter(s) Family Medical History: Blood Disorder Additional Family Medical History / Comment(s): UNKNOWN NAME OF BLOOD DISORDER. Medications and Allergies Home Medications Medication Instructions Recorded Confirmed Type Albuterol Sulfate [Ventolin HFA] 2 puff INHALATION RT-Q4H PRN 11/04/23 01/10/24 History Budesonide/Formoterol Fumarate 2 puff INHALATION RT-BID 11/04/23 01/10/24 History [Symbicort 160-4.5 Mcg Inhaler] Atorvastatin [Lipitor] 40 mg PO HS 30 Days #30 tab 11/05/23 01/10/24 Rx amLODIPine [Norvasc] 5 mg PO DAILY 30 Days #30 tab 11/05/23 01/10/24 Rx Aspirin EC [Ecotrin Low Dose] 81 mg PO DAILY 12/05/23 01/10/24 History Ergocalciferol (Vitamin D2) 1,250 mcg PO WE 12/05/23 01/10/24 History [Drisdol (50,000 Iu)] Pantoprazole [Protonix] 40 mg PO AC-BRKFST 30 Days #30 tab 12/05/23 01/10/24 Rx carvediloL [Coreg] 6.25 mg PO BID PRN 12/05/23 01/10/24 History hydrOXYzine HCL [Atarax] 25 mg PO QID PRN #120 tab 12/05/23 01/10/24 Rx Nitroglycerin Sl Tabs [Nitrostat] 0.4 mg SUBLINGUAL Q5M PRN 01/10/24 01/10/24 History Allergies Allergy/AdvReac Type Severity Reaction Status Date / Time No Known Allergies Allergy Verified 01/10/24 20:57 Physical Exam Vitals: Vital Signs Pulse Resp BP Pulse Ox 01/11/24 08:54 92 133/80 01/11/24 08:19 98 01/11/24 08:13 87 18 110/75 98 01/11/24 06:28 82 16 150/90 97 01/11/24 05:00 87 16 139/91 98 01/11/24 00:00 77 17 118/63 95 01/10/24 21:41 84 18 121/88 96 01/10/24 19:11 92 17 115/76 99 01/10/24 18:56 85 14 115/82 98 01/10/24 18:35 88 17 117/79 98 Intake and Output 01/10/24 01/11/24 01/11/24 22:59 06:59 14:59 Other: Weight 51.256 kg PHYSICAL EXAMINATION: This is a 63-year-old female in no apparent distress at the time of my examination. VITAL SIGNS: Reviewed. HEENT: Head is atraumatic, normocephalic. Pupils are equal, round. Sclerae anicteric. Conjunctivae are clear. Mucous membranes of the mouth are moist. Neck is supple. There is no elevated jugular venous pressure. No carotid bruit is heard. CHEST EXAMINATION: Clear to auscultation bilaterally. No wheezes rales or rhonchi. Respirations even and nonlabored. HEART EXAMINATION: Heart regular, positive S1 and S2. No S3. No S4. No clicks, rubs or murmurs. ABDOMEN: Soft, nontender. Bowel sounds are heard. No organomegaly noted. EXTREMITIES: 2+ peripheral pulses with no evidence of peripheral edema and no calf tenderness noted. NEUROLOGIC EXAMINATION: Patient is awake, alert and oriented x3. Results 01/10/24 18:29 01/10/24 18:29 Cardiac Enzymes 01/10/24 01/10/24 01/10/24 Range/Units 18:29 18:29 21:35 AST 18 (14-36) U/L Troponin I <0.012 <0.012 (0.000-0.034) ng/mL 01/10/24 Range/Units 23:39 AST (14-36) U/L Troponin I <0.012 (0.000-0.034) ng/mL Coagulation 01/10/24 Range/Units 18:29 PT 9.8 L (10.0-12.5) sec APTT 21.6 L (22.0-30.0) sec Lipids 01/10/24 Range/Units 18:29 Triglycerides 96.60 (0.00-149.00) mg/dL Cholesterol 213.00 H (0.00-200.00) mg/dL HDL Cholesterol 45.80 (40.00-60.00) mg/dL Cholesterol/HDL Ratio 4.65 Ratio CBC 01/10/24 Range/Units 18:29 WBC 10.6 (3.8-10.6) k/uL RBC 4.01 (3.80-5.40) m/uL Hgb 13.4 (11.4-16.0) gm/dL Hct 41.1 (34.0-46.0) % Plt Count 276 (150-450) k/uL Comprehensive Metabolic Panel 01/10/24 Range/Units 18:29 Sodium 137 (137-145) mmol/L Potassium 4.4 (3.5-5.1) mmol/L Chloride 108 H (98-107) mmol/L Carbon Dioxide 24 (22-30) mmol/L BUN 11 (7-17) mg/dL Creatinine 0.70 (0.52-1.04) mg/dL Glucose 96 (74-99) mg/dL Calcium 8.5 (8.4-10.2) mg/dL AST 18 (14-36) U/L ALT 13 (4-34) U/L Alkaline Phosphatase 76 (38-126) U/L Total Protein 6.1 L (6.3-8.2) g/dL Albumin 3.6 (3.5-5.0) g/dL Current Medications Generic Name Dose Route Start Last Admin Trade Name Freq PRN Reason Stop Dose Admin Albuterol Sulfate 2.5 mg 01/10/24 21:14 Albuterol Nebulized 2.5 Mg/3 Ml INHALATION RT-Q4H PRN Shortness Of Breath Amlodipine Besylate 5 mg 01/11/24 09:00 01/11/24 08:53 Amlodipine 5 Mg Tab PO 5 mg DAILY [facility] Administration Aspirin 81 mg 01/12/24 09:00 Aspirin 81 Mg PO DAILY [facility] Atorvastatin Calcium 40 mg 01/11/24 21:00 Atorvastatin 40 Mg Tab PO [facility] Budesonide/Formoterol Fumarate 2 puff 01/11/24 08:00 01/11/24 08:17 Symbicort 160-4.5 Mcg Inhaler INHALATION 2 puff RT-BID [facility] Administration Carvedilol 6.25 mg 01/10/24 21:14 Carvedilol 6.25 Mg Tab PO BID-W/MEALS PRN Chest Pain Enoxaparin Sodium 40 mg 01/11/24 09:00 01/11/24 08:53 Enoxaparin 40 Mg/0.4 Ml Syringe SQ 40 mg DAILY [facility] Administration Ergocalciferol 1,250 mcg 01/15/24 09:00 Ergocalciferol 1,250 Mcg (50,000 Iu) Capsule PO We@0900 [facility] Hydroxyzine HCl 25 mg 01/10/24 22:00 Hydroxyzine Hcl 25 Mg Tab PO QID PRN Anxiety Nitroglycerin 0.4 mg 01/10/24 21:15 Nitroglycerin Sl Tabs 0.4 Mg Tab SUBLINGUAL Q5M PRN Chest Pain Pantoprazole Sodium 40 mg 01/11/24 07:30 01/11/24 08:14 Pantoprazole 40 Mg Tablet PO 40 mg AC-BRKFST [facility] Administration Intake and Output 01/10/24 01/11/24 01/11/24 22:59 06:59 14:59 Other: Weight 51.256 kg 01/10/24 18:29 01/10/24 18:29 Assessment and Plan Assessment: #1 left-sided pain, acute coronary event has been ruled out EKG and cardiac enzymes unremarkable #2 syncope, likely vasovagal #3 mild CAD #4 hypertension #5 hyperlipidemia #6 nicotine dependence Plan: Cardiology's perspective medications were reviewed and we will continue the same. Encouraged walking cessation. From our standpoint patient may be discharged home and follow-up in the office with Dr. Xiong. MAIL ROOM note has been reviewed, I agree with a documented findings and plan of care. Patient was seen and examined.
--- NOTE | 2024-01-11 14:19 | P.DS ---
Providers Date of admission: 01/10/24 21:15 Expected date of discharge: 01/11/24 Attending physician: Alondra Shoemaker MD Consults: 01/10/24 21:15 Consult Physician Urgent Consulting Provider: Stephen Ivory Consult Reason/Comments: cp, syncope Do you want consulting provider notified?: Yes Primary care physician: Rafa Lobato MD Hospital Course: Discharge Diagnosis: Chest pain, ACS ruled out Syncope, likely vasovagal History of CAD Hypertension Dyslipidemia COPD, not in exacerbation Anxiety Nicotine dependence Hospital Course: 63-year-old female with history of hypertension, dyslipidemia,, COPD, CAD status post stent, anxiety presenting with chest pain and syncope. Vital signs within normal limits. Laboratory workup mostly unremarkable. Troponin negative x 3. Total cholesterol 213, LDL 147.9. Chest x-ray did not show any acute process. EKG showed normal sinus rhythm. Cardiology consulted. ACS ruled out. Patient being discharged home with follow-up with cardiology outpatient. Patient seen and examined at bedside. Vital signs reviewed and stable. General: Nontoxic, no distress, appears at stated age Derm: Warm, dry Head: Atraumatic, normocephalic, symmetric Eyes: EOMI, no lid lag, anicteric sclera Mouth: No lip lesion, mucus membranes moist Cardiovascular: S1S2 reg, no murmur Lungs: CTA bilateral, no rhonchi, no rales, no accessory muscle use Abdominal: Soft, nontender to palpation, no guarding, no appreciable organomegaly Ext: No gross muscle atrophy, no edema, no contractures Neuro: CN II-XI grossly intact, no focal neuro deficits Psych: Alert, oriented, appropriate affect A total of 33 minutes of time were spent preparing this complex discharge summary. Patient was discharged on 01/11/2024 1417. Patient Condition at Discharge: Stable Plan - Discharge Summary New Discharge Prescriptions: Continue Budesonide/Formoterol Fumarate [Symbicort 160-4.5 Mcg Inhaler] 2 puff INHALATION RT-BID Atorvastatin [Lipitor] 40 mg PO HS 30 Days #30 tab Aspirin EC [Ecotrin Low Dose] 81 mg PO DAILY Ergocalciferol (Vitamin D2) [Drisdol (50,000 Iu)] 1,250 mcg PO WE Pantoprazole [Protonix] 40 mg PO AC-BRKFST 30 Days #30 tab Nitroglycerin Sl Tabs [Nitrostat] 0.4 mg SUBLINGUAL Q5M PRN PRN Reason: Chest Pain Albuterol Sulfate [Ventolin HFA] 2 puff INHALATION RT-Q4H PRN PRN Reason: Shortness Of Breath amLODIPine [Norvasc] 5 mg PO DAILY 30 Days #30 tab carvediloL [Coreg] 6.25 mg PO BID PRN PRN Reason: Chest Pain hydrOXYzine HCL [Atarax] 25 mg PO QID PRN #120 tab PRN Reason: Anxiety Discharge Medication List Albuterol Sulfate [Ventolin HFA] 2 puff INHALATION RT-Q4H PRN 11/04/23 [History] Budesonide/Formoterol Fumarate [Symbicort 160-4.5 Mcg Inhaler] 2 puff INHALATION RT-BID 11/04/23 [History] Atorvastatin [Lipitor] 40 mg PO HS 30 Days #30 tab 11/05/23 [Rx] amLODIPine [Norvasc] 5 mg PO DAILY 30 Days #30 tab 11/05/23 [Rx] Aspirin EC [Ecotrin Low Dose] 81 mg PO DAILY 12/05/23 [History] Ergocalciferol (Vitamin D2) [Drisdol (50,000 Iu)] 1,250 mcg PO WE 12/05/23 [History] Pantoprazole [Protonix] 40 mg PO AC-BRKFST 30 Days #30 tab 12/05/23 [Rx] carvediloL [Coreg] 6.25 mg PO BID PRN 12/05/23 [History] hydrOXYzine HCL [Atarax] 25 mg PO QID PRN #120 tab 12/05/23 [Rx] Nitroglycerin Sl Tabs [Nitrostat] 0.4 mg SUBLINGUAL Q5M PRN 01/10/24 [History] Follow up Appointment(s)/Referral(s): Tony Xiong DO [STAFF PHYSICIAN] - 1 Week Rafa Lobato MD [Primary Care Provider] - 1-2 days Patient Instructions/Handouts: Chest Pain (DC) Activity/Diet/Wound Care/Special Instructions: Please see cardiology and PCP. Discharge Disposition: HOME SELF-CARE
[2024-01-11 14:52] VITALS: BP 119/92; PULSE 78; RESP 18; TEMP 97.8
[2024-01-11] MEDS ORDERED: ATORVASTATIN 40 MG TAB PO SCH (21:00)
[2024-01-12] MEDS ORDERED: ASPIRIN 81 MG PO SCH (09:00)
[2024-01-15] MEDS ORDERED: ERGOCALCIFEROL 1,250 MCG (50,000 IU) CAPSULE PO SCH (09:00)
== END 2024-01-11 15:03 | disposition home or self-care (01) ==
LOC: EC 18:14 → 6NMEDSUR 21:15
PROVIDERS: ADMIT Internal Medicine; ATTEND Internal Medicine
DX: R07.89 Other chest pain (principal); R55 Syncope and collapse; I25.10 Atherosclerotic heart disease of native coronary artery without angina pectoris; I10 Essential (primary) hypertension; J44.9 Chronic obstructive pulmonary disease, unspecified; E78.5 Hyperlipidemia, unspecified; F41.9 Anxiety disorder, unspecified; R61 Generalized hyperhidrosis; R11.2 Nausea with vomiting, unspecified; M25.569 Pain in unspecified knee; F17.210 Nicotine dependence, cigarettes, uncomplicated; Z79.51 Long term (current) use of inhaled steroids; Z79.82 Long term (current) use of aspirin; Z79.899 Other long term (current) drug therapy
CPT/HCPCS: 96372; 99285; 36415; 94640; 94760; 93005 ×2; 85379; 80061; 80053; 82150; 83690; 83735; 84484; 85025; 85610; 85730; 71046; G0378 ×2; J1650

== ENCOUNTER 2024-01-18 10:00 | Emergency (ER) | payer OTHER ==
[2024-01-18 10:07] VITALS: RESP 18
--- NOTE | 2024-01-18 10:37 | ED ---
Lower Extremity Injury HPI - General Chief Complaint: Extremity Injury, Lower Stated Complaint: Left knee pain Time Seen by Provider: 01/18/24 10:34 Source: patient, RN notes reviewed Mode of arrival: wheelchair Limitations: no limitations - History of Present Illness Initial Comments: 63-year-old female presented to the ER with a chief complaint of right knee injury. Patient reports she recently got a new dog who chewed a hole through her door. She states her placed a wood board to cover the hole but it is too tall for her to cross over it. She states when attempting to walk over it 2 days ago she accidentally caught her right gaona on the board causing her to lose her balance and fall into a dresser. She states her left knee hit the dresser directly on. She states she has been experiencing a burning pain in her knee with radiation to her ankle and hip. Denies any paresthesias. She denies any head injury or other complaints. - Related Data Home Medications Medication Instructions Recorded Confirmed Albuterol Sulfate [Ventolin HFA] 2 puff INHALATION RT-Q4H PRN 11/04/23 01/10/24 Budesonide/Formoterol Fumarate 2 puff INHALATION RT-BID 11/04/23 01/10/24 [Symbicort 160-4.5 Mcg Inhaler] Aspirin EC [Ecotrin Low Dose] 81 mg PO DAILY 12/05/23 01/10/24 Ergocalciferol (Vitamin D2) 1,250 mcg PO WE 12/05/23 01/10/24 [Drisdol (50,000 Iu)] carvediloL [Coreg] 6.25 mg PO BID PRN 12/05/23 01/10/24 Nitroglycerin Sl Tabs [Nitrostat] 0.4 mg SUBLINGUAL Q5M PRN 01/10/24 01/10/24 Previous Rx's Medication Instructions Recorded Atorvastatin [Lipitor] 40 mg PO HS 30 Days #30 tab 11/05/23 amLODIPine [Norvasc] 5 mg PO DAILY 30 Days #30 tab 11/05/23 Pantoprazole [Protonix] 40 mg PO AC-BRKFST 30 Days #30 tab 12/05/23 hydrOXYzine HCL [Atarax] 25 mg PO QID PRN #120 tab 12/05/23 Allergies Allergy/AdvReac Type Severity Reaction Status Date / Time No Known Allergies Allergy Verified 01/10/24 20:57 Review of Systems ROS Statement: Those systems with pertinent positive or pertinent negative responses have been documented in the HPI. ROS Other: All systems not noted in ROS Statement are negative. Past Medical History Past Medical History: Hearing Disorder / Deafness, Myocardial Infarction (NH) Additional Past Medical History / Comment(s): STATES WT LOSS OF 40 # OVER LAST 7 MONTHS, POOR APPETITE , FATIGUE., NODULE ON LUNG. , PARTIALLY DEAF RIGHT EAR., STATES 3 LOOSE TEETH ., STATES HX OF FALL & INJURED LEFT KNEE AND RIGHT WRIST (10/2017)-STATES LIMPING, & CANNOT USE RIGHT WRIST. Last Myocardial Infarction Date:: na History of Any Multi-Drug Resistant Organisms: None Reported Past Surgical History: Heart Catheterization With Stent Additional Past Surgical History / Comment(s): D & C Past Anesthesia/Blood Transfusion Reactions: No Reported Reaction Date of Last Stent Placement:: 2022 Past Psychological History: Anxiety, Depression Smoking Status: Current every day smoker Past Alcohol Use History: Heavy Past Drug Use History: Marijuana - Past Family History Mother Family Medical History: Blood Disorder Additional Family Medical History / Comment(s): PROTEIN C - DEFICIENCY. Daughter(s) Family Medical History: Blood Disorder Additional Family Medical History / Comment(s): UNKNOWN NAME OF BLOOD DISORDER. General Exam Limitations: no limitations General appearance: alert, in no apparent distress Respiratory exam: Present: normal lung sounds bilaterally. Absent: respiratory distress, wheezes, rales, rhonchi, stridor Cardiovascular Exam: Present: regular rate, normal rhythm, normal heart sounds. Absent: systolic murmur, diastolic murmur, rubs, gallop, clicks Extremities exam: Present: tenderness (Tenderness and bruising to left knee. Patient has limited flexion due to pain. Mild edema. 1+ right dorsalis pedis pulse. No calf tenderness negative right straight leg roll) Skin exam: Present: warm, dry, intact, normal color, abrasion (Right gaona.). Absent: rash Course Vital Signs 01/18/24 01/18/24 10:03 12:04 Temperature 98.4 F 98.2 F Pulse Rate 99 89 Respiratory 18 18 Rate Blood Pressure 117/69 112/87 O2 Sat by Pulse 97 97 Oximetry Medical Decision Making - Medical Decision Making Was pt. sent in by a medical professional or institution (, [place], [facility], urgent care, hospital, or fpc...) When possible be specific @ -No Did you speak to anyone other than the patient for history (EMS, parent, family, police, friend...)? What history was obtained from this source @ -No Did you review nursing and triage notes (agree or disagree)? Why? @ -I reviewed and agree with nursing and triage notes Were old charts reviewed (outside hosp., previous admission, EMS record, old EKG, old radiological studies, urgent care reports/EKG's, fpc records)? Report findings @ -No old charts were reviewed Differential Diagnosis (chest pain, altered mental status, abdominal pain women, abdominal pain men, vaginal bleeding, weakness, fever, dyspnea, syncope, headache, dizziness, GI bleed, back pain, seizure, CVA, palpatations, mental health, musculoskeletal)? @ -Differential Musculoskeletal: Muscular strain, contusion, ligament sprain, fracture, arthritis, septic arthritis, bursitis, cellulitis, muscle spasm, nerve compression, DVT, arterial occlusion, herpes zoster, electrolyte abnormality, tumor.... This is not meant to be in all inclusive list EKG interpreted by me (3pts min.). @ -None X-rays interpreted by me (1pt min.). @ -Left knee x-ray interpreted by me negative for acute fractures or dislocations. CT interpreted by me (1pt min.). @ -None done U/S interpreted by me (1pt. min.). @ -None done What testing was considered but not performed or refused? (CT, X-rays, U/S, labs)? Why? @ -None What meds were considered but not given or refused? Why? @ -Patient refused analgesic medications Did you discuss the management of the patient with other professionals (professionals i.e. , MICHAEL, [facility], lab, RT, psych nurse, forensic social worker, vice president quality, teacher, chief merchandising officer, senior case manager)? Give summary @ -No Was smoking cessation discussed for >3mins.? @ -I discussed smoking cessation for greater than 3 minutes. The risk of smoking were discussed with the patient including but not limited to risks of cancer, stroke, coronary artery disease and COPD. Also discussed with patient were multiple methods of quitting smoking. Lastly we discussed the financial cost of smoking. Was critical care preformed (if so, how long)? @ -No Were there social determinants of health that impacted care today? How? (Homelessness, low income, unemployed, alcoholism, drug addiction, transportation, low edu. Level, literacy, decrease access to med. care, [place] [facility], rehab)? @ -No Was there de-escalation of care discussed even if they declined (Discuss DNR or withdrawal of care, Hospice)? DNR status @ -No What co-morbidities impacted this encounter? (DM, HTN, Smoking, COPD, CAD, Cancer, CVA, ARF, Chemo, Hep., AIDS, mental health diagnosis, sleep apnea, morbid obesity)? @ -None Was patient admitted / discharged? Hospital course, mention meds given and route, prescriptions, significant lab abnormalities, going to OR and other pertinent info. @ -Discharge. 63-year-old female presented to the ER with a chief complaint of left knee injury. History and physical exam completed. Vitals stable. Patient in no signs of acute distress. Left lower extremity neurovascular intact. There is bruising and mild edema to left knee. Limited range of motion due to pain. No calf tenderness. Patient refused analgesic medication. Left knee x-ray negative for discrete fracture line exam is also limited by o steopenia. Likely marginal spurring off the lateral tibial plateau. Due to patient's exquisite point tenderness to the lateral tibial plateau CT obtained to rule out fracture. CT left knee significant for articular surface indentation along the mid peripheral aspect of the lateral tibial plateau and adjacent subchondral cystic change suggesting a chronic finding. Results discussed with patient, all questions answered. Patient placed in a knee immobilizer. Patient reports that she has crutches, a walker and wheelchair at home for her to ambulate. Strict return parameters discussed. Patient discharged in stable condition with follow-up to orthopedics, referral given. Patient verbally expressed understanding and agreement with care plan. Case discussed with ED attending, Dr. Eisenberg. Undiagnosed new problem with uncertain prognosis? @ -No Drug Therapy requiring intensive monitoring for toxicity (Heparin, Nitro, Insulin, Cardizem)? @ -No Were any procedures done? @ -No Diagnosis/symptom? @ -Knee sprain/nicotine dependence Acute, or Chronic, or Acute on Chronic? @ -Acute Uncomplicated (without systemic symptoms) or Complicated (systemic symptoms)? @ -Uncomplicated Side effects of treatment? @ -No Exacerbation, Progression, or Severe Exacerbation? @ -No Poses a threat to life or bodily function? How? (Chest pain, [place], NH, pneumonia, PE, COPD, DKA, ARF, appy, cholecystitis, CVA, Diverticulitis, Homicidal, Suicidal, threat to staff... and all critical care pts) @ -No - Radiology Data Radiology results: report reviewed, image reviewed Disposition Clinical Impression: Knee sprain Disposition: HOME SELF-CARE Condition: Stable Instructions (If sedation given, give patient instructions): How to Stop Smoking (ED), Knee Sprain (ED) Additional Instructions: Remain nonweightbearing. You may take [id number] Tylenol and Motrin for pain control. Follow-up with orthopedics. Return to the ER for any new or worsening concerns. Is patient prescribed a controlled substance at d/c from ED?: No Referrals: Rafa Lobato MD [Primary Care Provider] - 1-2 days Farshad Samaniego DO [Doctor of Osteopathic Medicine] - 1-2 days Time of Disposition: 13:06
--- NOTE | 2024-01-18 11:24 | XR ---
EXAMINATION TYPE: XR knee complete RT DATE OF EXAM: 01/18/2024 COMPARISON: NONE HISTORY: 63-year-old female tripped and fall, injury and pain TECHNIQUE: 3 views FINDINGS: Trace joint effusion. Some indentation along the articular surface along the back side of t he patella on the lateral view. Some marginal spurring along the lateral tibial plateau. No discrete fracture line is seen. Osteopenia. IMPRESSION: 1. No discrete fracture line is seen but the exam is limited by osteopenia. Bony irregularity along t he lateral tibial plateau likely corresponds to marginal spurring. Also, articular surface indentatio n along the back side of the patella on the lateral view likely osteoarthritic in etiology. 2. If patient's pain is out of proportion to these findings or there is concern for underlying occult osseous injury, further cross-sectional evaluation may be indicated.
[2024-01-18 12:05] VITALS: BP 112/87; PULSE 89; TEMP 98.2
--- NOTE | 2024-01-18 12:56 | CT ---
EXAMINATION TYPE: CT knee LT wo con DATE OF EXAM: 01/18/2024 COMPARISON: Radiograph same day HISTORY: 63-year-old female with injury and left knee pain TECHNIQUE: Contiguous axial scanning of the left knee without IV contrast. Coronal and sagittal recon structions performed. 3-D reconstructions generated on a dedicated independent workstation. CT DLP: 74.4 mGycm Automated exposure control for dose reduction was used. FINDINGS: Anterior soft tissue swelling. Trace knee joint effusion. No lipohemarthrosis. Extensor mechanism is intact. The questioned articular surface indentation along the back side of the patella appears to be chronic . No corresponding fracture is identified here. There is some subchondral sclerosis and cystic change noted on axial image 22 and sagittal image 28. There is slight 1 to 2 mm of depression along the mid peripheral aspect of the lateral tibial plateau. Marginal spurring is present here as well as some a djacent subchondral cystic change suggesting more chronic finding possibly previous insufficiency fra cture. No acute fracture line is seen. Consider MRI follow-up to assess for any marrow edema. No Andrews's cyst. No extruded meniscus is identified. IMPRESSION: 1. SLIGHT 1 TO 2 MM OF ARTICULAR SURFACE INDENTATION ALONG THE MID PERIPHERAL ASPECT OF THE LATERAL T IBIAL PLATEAU. THERE IS MARGINAL SPURRING HERE AND SOME ADJACENT SUBCHONDRAL CYSTIC CHANGE SUGGESTING A MORE CHRONIC FINDING, POSSIBLE PREVIOUS INSUFFICIENCY FRACTURE AND DEVELOPMENT OF POSTTRAUMATIC OA . NO ACUTE FRACTURE LINE IS CLEARLY IDENTIFIED. THE LACK OF A SIGNIFICANT JOINT EFFUSION ALSO ARGUES AGAINST THE PRESENCE OF AN ACUTE TIBIAL PLATEAU FRACTURE. CONSIDER MRI IF CLINICALLY INDICATED. 2. CHRONIC ARTICULAR SURFACE INDENTATION ALONG THE BACKSIDE OF THE PATELLA RELATING TO OSTEOARTHRITIC CHANGE.
== END 2024-01-18 13:38 | disposition home or self-care (01) ==
LOC: EC 10:00
DX: S83.92XA Sprain of unspecified site of left knee, initial encounter (principal); F17.200 Nicotine dependence, unspecified, uncomplicated; W01.0XXA Fall on same level from slipping, tripping and stumbling without subsequent striking against object, initial encounter
CPT/HCPCS: 99284

== ENCOUNTER 2024-04-11 01:46 | Observation (INO) | payer MEDICARE, OTHER ==
[2024-04-11] MEDS ORDERED: NITROGLYCERIN SL TABS 0.4 MG TAB SUBLINGUAL PRN (02:06)
--- NOTE | 2024-04-11 02:08 | ED ---
General Adult HPI - General Chief complaint: Chest Pain Stated complaint: CP Time Seen by Provider: 04/11/24 01:57 Source: EMS Mode of arrival: EMS Limitations: no limitations - History of Present Illness Initial comments: Patient is a pleasant 64-year-old female presenting for chest pain x 2 days. Began yesterday and has progressively worsened. Described as chest pressure nonradiating. Patient does endorse associated diaphoresis and nausea. Had 2 e pisodes nonbloody nonbilious emesis. Denies any abdominal pain. She did take her home Coreg, stating she takes 3.25 mg and states this did not improve her pain. Patient denies cough, difficulty in breathing, fevers or chills. - Related Data Home Medications Medication Instructions Recorded Confirmed Albuterol Sulfate [Ventolin HFA] 2 puff INHALATION RT-QID PRN 11/04/23 04/11/24 Budesonide/Formoterol Fumarate 2 puff INHALATION RT-BID 11/04/23 04/11/24 [Symbicort 160-4.5 Mcg Inhaler] carvediloL [Coreg] 3.125 mg PO DAILY PRN 12/05/23 04/11/24 Allergies Allergy/AdvReac Type Severity Reaction Status Date / Time No Known Allergies Allergy Verified 04/11/24 10:43 Review of Systems ROS Statement: Those systems with pertinent positive or pertinent negative responses have been documented in the HPI. ROS Other: All systems not noted in ROS Statement are negative. Past Medical History Past Medical History: Hearing Disorder / Deafness, Myocardial Infarction (MD) Additional Past Medical History / Comment(s): STATES WT LOSS OF 40 # OVER LAST 7 MONTHS, POOR APPETITE , FATIGUE., NODULE ON LUNG. , PARTIALLY DEAF RIGHT EAR., STATES 3 LOOSE TEETH ., STATES HX OF FALL & INJURED LEFT KNEE AND RIGHT WRIST (10/2017)-STATES LIMPING, & CANNOT USE RIGHT WRIST. Last Myocardial Infarction Date:: na History of Any Multi-Drug Resistant Organisms: None Reported Past Surgical History: Heart Catheterization With Stent Additional Past Surgical History / Comment(s): D & C Past Anesthesia/Blood Transfusion Reactions: No Reported Reaction Date of Last Stent Placement:: 2022 Past Psychological History: Anxiety, Depression Smoking Status: Current every day smoker Past Alcohol Use History: Heavy Past Drug Use History: Marijuana - Past Family History Mother Family Medical History: Blood Disorder Additional Family Medical History / Comment(s): PROTEIN C - DEFICIENCY. Daughter(s) Family Medical History: Blood Disorder Additional Family Medical History / Comment(s): UNKNOWN NAME OF BLOOD DISORDER. General Exam - General Exam Comments Initial Comments: PE: CONSTITUTIONAL: No apparent distress, well appearing SKIN: Warm, dry, no jaundice, hives or petechiae EYES: Pupils are equally round, extraocular movements intact without nystagmus, clear conjunctiva, non-icteric sclera HENT: Normocephalic, atraumatic, moist mucus membranes, oropharynx clear without exudates NECK: , Full range of motion, normal appearance PULMONARY: Clear to auscultation without wheezes, rhonchi, or rales, normal excursion, no accessory muscle use and no stridor CARDIOVASCULAR: Regular rate, rhythm, normal S1 and S2. No appreciated murmurs, rubs or gallops. Strong radial pulses with intact distal perfusion. No lower extremity edema GASTROINTESTINAL: Soft, non-tender, non-distended, no palpable masses, no rebound or guarding. No hepatosplenomegaly MUSCULOSKELETAL: Extremities have no gross deformity, no edema, redness, or swelling. No calf swelling NEUROLOGIC:_a/o x 3, GCS 15, normal mentation and speech. Moves all extremities x 4 without motor or sensory deficit PSYCHIATRIC:_normal mood and affect, thought process is clear and linear Limitations: no limitations Course Vital Signs 04/11/24 04/11/24 04/11/24 01:47 02:24 03:01 Temperature 98.7 F Pulse Rate 84 84 73 Respiratory 20 16 18 Rate Blood Pressure 189/113 130/75 109/75 O2 Sat by Pulse 99 97 99 Oximetry 04/11/24 04/11/24 04:00 06:00 Temperature Pulse Rate 87 87 Respiratory 16 16 Rate Blood Pressure 137/86 131/89 O2 Sat by Pulse 99 99 Oximetry EKG Findings - EKG Comments: EKG Findings:: Sinus rhythm, rate 70 bpm, OH interval 125 ms, QRS duration 96 ms, QT/QTc 413/434 ms, normal axis, no ST elevations or depressions, Compared to EKG performed on 01/11/2024, T waves in V4, V5, V6 leads II, III and aVF do appear larger than prior Medical Decision Making - Medical Decision Making Was pt. sent in by a medical professional or institution (Dr., PA, BOOTMAKER, urgent care, hospital, or [facility]...) When possible be specific @ -No Did you speak to anyone other than the patient for history (EMS, parent, family, police, friend...)? What history was obtained from this source @ -No Did you review nursing and triage notes (agree or disagree)? Why? @ -I reviewed and agree with nursing and triage notes Were old charts reviewed (outside hosp., previous admission, EMS record, old EKG, old radiological studies, urgent care reports/EKG's, [facility] records)? Report findings @ -Reviewed stress test report 11/05/23, was negative Differential Diagnosis (chest pain, altered mental status, abdominal pain women, abdominal pain men, vaginal bleeding, weakness, fever, dyspnea, syncope, headache, dizziness, GI bleed, back pain, seizure, CVA, palpatations, mental health, musculoskeletal)? @ -Differential diagnosis remains broad however top considerations include ACS, COPD exacerbation, PNA, chostocondritis, pericarditis, this is not all inclusive list EKG interpreted by me (3pts min.). @ -As above X-rays interpreted by me (1pt min.). @ -see below CT interpreted by me (1pt min.). @ -None done U/S interpreted by me (1pt. min.). @ -None done What testing was considered but not performed or refused? (CT, X-rays, U/S, labs)? Why? @ -None What meds were considered but not given or refused? Why? @ -None Did you discuss the management of the patient with other professionals (professionals i.e. MICHAEL Eddy, BOOTMAKER, lab, RT, psych nurse, social welfare administrator, business development sales executive, teacher, ecological technical officer, therapeutic case manager)? Give summary @ -No Was smoking cessation discussed for >3mins.? @ -No Was critical care preformed (if so, how long)? @ -No Were there social determinants of health that impacted care today? How? (Homelessness, low income, unemployed, alcoholism, drug addiction, transportation, low edu. Level, literacy, decrease access to med. care, senior living, rehab)? @ -No Was there de-escalation of care discussed even if they declined (Discuss DNR or withdrawal of care, Hospice)? @ -No What co-morbidities impacted this encounter? (DM, HTN, Smoking, COPD, CAD, Ca ncer, CVA, ARF, Chemo, Hep., AIDS, mental health diagnosis, sleep apnea, morbid obesity)? @ COPD, ACS, HTN Was patient admitted / discharged? Hospital course, mention meds given and route, prescriptions, significant lab abnormalities, going to OR and other pertinent info. @ -Hospital course 3 Admitted- Pt is a pleasant 64-year-old female possible history of COPD, ACS, hypertension presenting today for chest pain x 2 days. Described as initially severe and pressure-like. Nonradiating. Was given 5 mg morphine, sublingual nitroglycerin and aspirin via EMS and patient states pain did decrease from a 10 to a 6 out of 10. Patient hypertensive on arrival, no hypoxia, blood pressure stable. In no acute distress on my assessment. Skin pink and well-perfused, lungs clear to auscultation bilaterally, normal S1-S2 on cardiac exam without murmurs. No lower extremity edema. ACS workup initiated. Patient's pain resolved with additional morphine administration. BP improved into 130s systolic after morphine. On my reassessment she endorsed resolution of pain. Updated patient to negative troponin and elevated WBC count. WBC 22. Patient afebrile. Chest x-ray reviewed and I did not see any obvious consolidations. Patient denies any other sick symptoms, denies cough productive of sputum, denies fevers or other concerns for infection. Will give dose azithromycin and Rocephin given history of COPD and elevated white count. Additionally magnesium 1.5. Replacement to be ordered. Plan for admission for chest pain evaluation. Patient is agreeable with plan of care. Discussed with Dr. De Los Santos, who kindly accepts for admission. Undiagnosed new problem with uncertain prognosis? @ -No Drug Therapy requiring intensive monitoring for toxicity (Heparin, Nitro, Insulin, Cardizem)? @ -No Were any procedures done? @ -No Diagnosis/symptom? @ -CHest pain Acute, or Chronic, or Acute on Chronic? @ -Acute Uncomplicated (without systemic symptoms) or Complicated (systemic symptoms)? @ -Complcated Side effects of treatment? @ -No Exacerbation, Progression, or Severe Exacerbation? @ -No Poses a threat to life or bodily function? How? (Chest pain, USA, MD, pneumonia, PE, COPD, DKA, ARF, appy, cholecystitis, CVA, Diverticulitis, Homicidal, Suicidal, threat to staff... and all critical care pts) @ Yes potentially - Lab Data Result diagrams: 04/11/24 11:26 04/11/24 11:26 Lab Results 04/11/24 04/11/24 04/11/24 Range/Units 02:01 02:01 02:01 WBC 22.0 H (3.8-10.6) k/uL RBC 4.80 (3.80-5.40) m/uL Hgb 16.4 H (11.4-16.0) gm/dL Hct 47.4 H (34.0-46.0) % MCV 98.7 (80.0-100.0) fL MCH 34.1 (25.0-35.0) pg MCHC 34.6 (31.0-37.0) g/dL RDW 13.4 (11.5-15.5) % Plt Count 312 (150-450) k/uL MPV 8.2 Neutrophils % 91 % Lymphocytes % 6 % Monocytes % 3 % Eosinophils % 0 % Basophils % 0 % Neutrophils # 20.1 H (1.3-7.7) k/uL Lymphocytes # 1.2 (1.0-4.8) k/uL Monocytes # 0.6 (0-1.0) k/uL Eosinophils # 0.0 (0-0.7) k/uL Basophils # 0.0 (0-0.2) k/uL PT 10.3 (10.0-12.5) sec INR 0.9 (<1.2) APTT 21.8 L (22.0-30.0) sec D-Dimer 0.46 (<0.60) mg/L FEU Sodium 140 (137-145) mmol/L Potassium 4.7 (3.5-5.1) mmol/L Chloride 108 H (98-107) mmol/L Carbon Dioxide 16 L (22-30) mmol/L Anion Gap 16 mmol/L BUN 19 H (7-17) mg/dL Creatinine 0.60 (0.52-1.04) mg/dL Est GFR (CKD-EPI)AfAm >90 (>60 ml/min/1.73 sqM) Est GFR (CKD-EPI)NonAf >90 (>60 ml/min/1.73 sqM) Glucose 191 H (74-99) mg/dL Calcium 10.1 (8.4-10.2) mg/dL Magnesium 1.5 L (1.6-2.3) mg/dL Total Bilirubin 0.8 (0.2-1.3) mg/dL AST 34 (14-36) U/L ALT 23 (4-34) U/L Alkaline Phosphatase 120 (38-126) U/L Troponin I (0.000-0.034) ng/mL NT-Pro-B Natriuret Pep 266 pg/mL Total Protein 7.9 (6.3-8.2) g/dL Albumin 4.9 (3.5-5.0) g/dL 04/11/24 Range/Units 02:01 WBC (3.8-10.6) k/uL RBC (3.80-5.40) m/uL Hgb (11.4-16.0) gm/dL Hct (34.0-46.0) % MCV (80.0-100.0) fL MCH (25.0-35.0) pg MCHC (31.0-37.0) g/dL RDW (11.5-15.5) % Plt Count (150-450) k/uL MPV Neutrophils % % Lymphocytes % % Monocytes % % Eosinophils % % Basophils % % Neutrophils # (1.3-7.7) k/uL Lymphocytes # (1.0-4.8) k/uL Monocytes # (0-1.0) k/uL Eosinophils # (0-0.7) k/uL Basophils # (0-0.2) k/uL PT (10.0-12.5) sec INR (<1.2) APTT (22.0-30.0) sec D-Dimer (<0.60) mg/L FEU Sodium (137-145) mmol/L Potassium (3.5-5.1) mmol/L Chloride (98-107) mmol/L Carbon Dioxide (22-30) mmol/L Anion Gap mmol/L BUN (7-17) mg/dL Creatinine (0.52-1.04) mg/dL Est GFR (CKD-EPI)AfAm (>60 ml/min/1.73 sqM) Est GFR (CKD-EPI)NonAf (>60 ml/min/1.73 sqM) Glucose (74-99) mg/dL Calcium (8.4-10.2) mg/dL Magnesium (1.6-2.3) mg/dL Total Bilirubin (0.2-1.3) mg/dL AST (14-36) U/L ALT (4-34) U/L Alkaline Phosphatase (38-126) U/L Troponin I <0.012 (0.000-0.034) ng/mL NT-Pro-B Natriuret Pep pg/mL Total Protein (6.3-8.2) g/dL Albumin (3.5-5.0) g/dL Disposition Clinical Impression: Chest pain Clinical Impression: (Ruled Out): Accelerated hypertension Disposition: ADMITTED IP TO THIS HOSP Condition: Stable
[2024-04-11] MEDS: ASPIRIN 81 MG PO STA (02:13)
[2024-04-11] MEDS: MORPHINE SULFATE 4 MG/ML SYRINGE IVP STA (02:20)
[2024-04-11] MEDS: ONDANSETRON 4 MG/2 ML VIAL IVP STA (02:20)
[2024-04-11 03:01] LABS: ALT 23 U/L (4-34); AST 34 U/L (14-36); African American GFR (CKD) >90 (>60 ml/min/1.73 sqM); Albumin 4.9 g/dL (3.5-5.0); Alkaline Phosphatase 120 U/L (38-126); Anion Gap 16 mmol/L; Blood Urea Nitrogen 19 mg/dL (7-17); Calcium 10.1 mg/dL (8.4-10.2); Carbon Dioxide 16 mmol/L (22-30); Chloride 108 mmol/L (98-107); Glucose 191 mg/dL (74-99); Magnesium 1.5 mg/dL (1.6-2.3); Non-African American GFR(CKD) >90 (>60 ml/min/1.73 sqM); Potassium 4.7 mmol/L (3.5-5.1); Sodium 140 mmol/L (137-145); Total Bilirubin 0.8 mg/dL (0.2-1.3); Total Protein 7.9 g/dL (6.3-8.2)
[2024-04-11 03:09] LABS: NT-Pro-B-Type Natriuretic Pept 266 pg/mL
[2024-04-11 03:26] LABS: Basophils % (A) 0 %; Eosinophils % (A) 0 %; HCT 47.4 % (34.0-46.0); HGB 16.4 gm/dL (11.4-16.0); Lymphocytes # (A) 1.2 k/uL (1.0-4.8); Lymphocytes % (A) 6 %; MCH 34.1 pg (25.0-35.0); MCHC 34.6 g/dL (31.0-37.0); MCV 98.7 fL (80.0-100.0); Mean Platelet Volume 8.2; Monocytes # (A) 0.6 k/uL (0-1.0); Monocytes % (A) 3 %; Neutrophils # (A) 20.1 k/uL (1.3-7.7); Neutrophils % (A) 91 %; Platelet Count 312 k/uL (150-450); RDW 13.4 % (11.5-15.5)
[2024-04-11 03:53] LABS: INR 0.9 (<1.2); Prothrombin Time 10.3 sec (10.0-12.5)
[2024-04-11 04:04] LABS: Partial Thromboplastin Time 21.8 sec (22.0-30.0)
--- NOTE | 2024-04-11 04:33 | XR ---
EXAM: XR Chest, 2 Views CLINICAL HISTORY: ITS.REASON XR Reason: Chest Pain TECHNIQUE: Frontal and lateral views of the chest. COMPARISON: Chest x-ray: 01/10/2024 FINDINGS: Lungs: Hyperinflated lungs, compatible with COPD/emphysema. Bilateral bronchial wall thickening/chronic bronchitis.. No consolidation. Pleural space: No pleural effusion. No pneumothorax. Heart: Unremarkable. No cardiomegaly. Mediastinum: Unremarkable. Normal mediastinal contour. Bones/joints: Osteopenia.. No acute fracture. IMPRESSION: No acute cardiopulmonary process evident. Chronic bronchitis. Pulmonary emphysema .
[2024-04-11 04:42] VITALS: RESP 16
[2024-04-11] MEDS: cefTRIAXone IN SWFI 1,000 MG/10 ML SYRINGE IVP STA (04:42)
[2024-04-11] MEDS: AZITHROMYCIN 500 MG in SODIUM CHLORIDE 0.9% 250 ML IVPB STA (04:49)
[2024-04-11] MEDS ORDERED: ACETAMINOPHEN TAB 325 MG TAB PO PRN (06:06)
[2024-04-11] MEDS ORDERED: CALCIUM CARBONATE 500 MG CHEWABLE PO PRN (06:06)
[2024-04-11] MEDS ORDERED: NALOXONE 0.4 MG/ML 1 ML VIAL IV PRN (06:06)
[2024-04-11] MEDS ORDERED: traMADol 50 MG TAB PO PRN (06:06)
[2024-04-11] MEDS ORDERED: MAG HYDROX/AL HYDROX/SIMETH 30 ML CUP PO PRN (06:06)
[2024-04-11] MEDS: MAGNESIUM SULFATE-D5W PMX 1 GM in DEXTROSE/WATER 1 100ML.BAG IVPB SCH (06:38)
[2024-04-11] MEDS ORDERED: carvediloL 6.25 MG TAB PO PRN (07:34)
[2024-04-11] MEDS: ALBUTEROL NEBULIZED 2.5 MG/3 ML INHALATION PRN (08:59)
[2024-04-11] MEDS: SYMBICORT 160-4.5 MCG INHALER INHALATION SCH (08:59)
[2024-04-11] MEDS: NICOTINE 14MG/24HR PATCH TRANSDERM SCH (09:04)
[2024-04-11] MEDS: amLODIPine 5 MG TAB PO SCH (09:04)
[2024-04-11] MEDS: carvediloL 3.125 MG TAB PO SCH (09:04)
[2024-04-11] MEDS: ENOXAPARIN 40 MG/0.4 ML SYRINGE SQ SCH (09:04)
[2024-04-11] MEDS: FAMOTIDINE 20 MG TAB PO SCH (09:04)
[2024-04-11] MEDS: ASPIRIN 81 MG PO SCH (09:04)
[2024-04-11] MEDS: PANTOPRAZOLE 40 MG TABLET PO SCH (09:06)
--- NOTE | 2024-04-11 11:07 | P.HPIM ---
History of Present Illness H&P Date: 04/11/24 History of Presenting Illness: Patient is a pleasant 64-year-old female with a past medical history of CAD, hypertension, lung nodule, anxiety and depression, previous alcohol use/abuse (states she quit drinking after her last relapse 1 month ago), and COPD with continued nicotine dependence and not home oxygen dependent. She presented to the emergency department with a chief complaint of chest pain. Patient reports intermittent chest pain over the past 2 days that was initially only lasting a few seconds at a time but has progressively worsened in intensity and duration. She reports awakening from sleep with a severe pressure to her midsternal chest accompanied by nausea, vomiting and mild diaphoresis. Patient reports she took her blood pressure and it was elevated at 230/100 so she took her 4 baby aspirin's and an extra dose of her Coreg but did not have improvement so she called EMS for transport to the hospital. Patient denies any other complaints including fevers, chills, headache, lightheadedness, dizziness, palpitations, shortness of breath, cough or congestion, abdominal pain or discomfort, changes in urinary or bowel function, or having any numbness/tingling/weakness/swelling in her extremities. Upon arrival to our facility, patient underwent evaluation in the emergency department. Vital signs upon arrival show blood pressure 189/113, heart rate 84, respiratory rate 20, temp 98.7 F, and SpO2 of 99% on 2 L. EKG was completed showing sinus mechanism at 70 bpm and no noted T wave or ST abnormalities showing no signs of acute ischemia upon personal review and interpretation. Chest x-ray completed consistent with chronic bronchitis and pulmonary emphysema with hyperinflation of the lungs and reports of bilateral b ronchial wall thickening, but negative for acute cardiopulmonary process showing no pleural effusion or infiltrate. Labs were completed and reviewed. CBC showing leukocytosis with a WBC count of 22.0 along with elevated hemoglobin of 16.4. Coagulation profile showing low PTT of 21.8 otherwise normal with normal D-dimer of 0.46. BMP showing high anion gap metabolic acidosis with chloride of 108, bicarb of 16, and anion gap of 16. BUN slightly elevated at 19. Blood glucose 191. Magnesium was low at 1.5. Liver profile unremarkable. Troponin was negative at less than 0.012 and proBNP is 266. Patient admitted under our services with consultation to cardiology. Review of systems: Pertinent positives and negatives as discussed in HPI, a complete review of systems was performed and all other systems are negative. Physical exam: Vital signs reviewed and stable. Thin and frail build. General: Nontoxic, no distress and appears stated age. Derm: Skin warm and dry, normal coloration for ethnicity. Head: Atraumatic, normocephalic and symmetric. Eyes: EOMs intact, no lid lag, and anicteric sclera Mouth: no lip lesions, mucus membranes moist Cardiovascular: regular rate and rhythm with normal S1S2, no murmur, positive posterior tibial pulses bilaterally, and cap refill < 2 seconds. Lungs: Respirations even, regular, and unlabored on 2 L supplemental O2 via nasal cannula. Lungs essentially clear but did have soft diffuse expiratory wheezes in upper roy.. Abdominal: soft, nontender to palpation, no guarding, no appreciable organomegaly Ext: ROM intact. No gross muscle atrophy, no edema, no contractures Neuro: Speech clear, face symmetrical and CN II-XII grossly intact with no noted focal neuro deficits Psych: Alert and oriented to person, place, time, and situation. Appropriate and pleasant affect. Assessment and Plan of Care: Chest pain, rule out acute coronary event Leukocytosis and polycythemia COPD with continued nicotine dependence, not in acute exacerbation Hypertension Coronary artery disease Anxiety with depression History of alcohol abuse (states stopped drinking one month ago) -Cardiology consulted, appreciate recommendations -Telemetry monitoring -Trend troponins -Aspirin 81 mg daily, amlodipine 5 mg daily, atorvastatin 40 mg daily, and carvedilol 3.125 mg twice daily. PRN sublingual nitroglycerin 0.4 mg every 5 minutes as needed for chest pain -Echocardiogram to be completed -Continue nicotine patch 14 mg daily, patient counseled on smoking cessation. -Continue Symbicort 2 puffs twice daily and as needed albuterol nebulizers for shortness of breath and/or wheezing. Hypomagnesemia Magnesium 1.5 and was replaced in the emergency department with 2 g magnesium sulfate IVPB. Will repeat labs and monitor for improvement and replace any abnormal electrolyte values as indicated based upon further findings. Data and imaging reviewed: As stated above in HPI The patient is admitted with an anticipated less than 2 midnight stay for evaluation of chest pain CODE STATUS: Full code DVT prophylaxis: Lovenox Anticipated discharge date: 24 to [address]: Home Patient was seen independently by Nurse Practitioner. This document was prepared using D2S dictation software. Please allow for errors in product control and logistics analyst while rare they do occur. I reviewed the documentation as provided by the PADDY above, who is the original author of this note. I agree with the documented assessment and plan, with the following changes: none Past Medical History Past Medical History: Hearing Disorder / Deafness, Myocardial Infarction ([place]) Additional Past Medical History / Comment(s): STATES WT LOSS OF 40 # OVER LAST 7 MONTHS, POOR APPETITE , FATIGUE., NODULE ON LUNG. , PARTIALLY DEAF RIGHT EAR., STATES 3 LOOSE TEETH ., STATES HX OF FALL & INJURED LEFT KNEE AND RIGHT WRIST (10/2017)-STATES LIMPING, & CANNOT USE RIGHT WRIST. Last Myocardial Infarction Date:: na History of Any Multi-Drug Resistant Organisms: None Reported Past Surgical History: Heart Catheterization With Stent Additional Past Surgical History / Comment(s): D & C Past Anesthesia/Blood Transfusion Reactions: No Reported Reaction Date of Last Stent Placement:: 2022 Past Psychological History: Anxiety, Depression Smoking Status: Current every day smoker Past Alcohol Use History: Heavy Past Drug Use History: Marijuana - Past Family History Mother Family Medical History: Blood Disorder Additional Family Medical History / Comment(s): PROTEIN C - DEFICIENCY. Daughter(s) Family Medical History: Blood Disorder Additional Family Medical History / Comment(s): UNKNOWN NAME OF BLOOD DISORDER. Medications and Allergies Home Medications Medication Instructions Recorded Confirmed Type Albuterol Sulfate [Ventolin HFA] 2 puff INHALATION RT-QID PRN 11/04/23 04/11/24 History Budesonide/Formoterol Fumarate 2 puff INHALATION RT-BID 11/04/23 04/11/24 History [Symbicort 160-4.5 Mcg Inhaler] carvediloL [Coreg] 3.125 mg PO DAILY PRN 12/05/23 04/11/24 History Allergies Allergy/AdvReac Type Severity Reaction Status Date / Time No Known Allergies Allergy Verified 04/11/24 10:43 Physical Exam Osteopathic Statement: *. No significant issues noted on an osteopathic structural exam other than those noted in the History and Physical/Consult. Vitals: Vital Signs Temp Pulse Resp BP Pulse Ox 04/11/24 06:00 87 16 131/89 99 04/11/24 04:00 87 16 137/86 99 04/11/24 03:01 73 18 109/75 99 04/11/24 02:24 84 16 130/75 97 04/11/24 01:47 98.7 F 84 20 189/113 99 Intake and Output 04/10/24 04/11/24 04/11/24 22:59 06:59 14:59 Other: Weight 55.792 kg Results CBC & Chem 7: 04/11/24 11:26 04/11/24 11:26 Labs: Abnormal Lab Results - Last 24 Hours (Table) 04/11/24 04/11/24 04/11/24 Range/Units 02:01 02:01 02:01 WBC 22.0 H (3.8-10.6) k/uL Hgb 16.4 H (11.4-16.0) gm/dL Hct 47.4 H (34.0-46.0) % Neutrophils # 20.1 H (1.3-7.7) k/uL APTT 21.8 L (22.0-30.0) sec Chloride 108 H (98-107) mmol/L Carbon Dioxide 16 L (22-30) mmol/L BUN 19 H (7-17) mg/dL Glucose 191 H (74-99) mg/dL Magnesium 1.5 L (1.6-2.3) mg/dL
[2024-04-11 12:24] LABS: HCT 43.3 % (34.0-46.0); MCH 32.6 pg (25.0-35.0); MCHC 32.3 g/dL (31.0-37.0); MCV 100.8 fL (80.0-100.0); Mean Platelet Volume 7.4; Platelet Count 246 k/uL (150-450); RBC 4.29 m/uL (3.80-5.40); WBC 12.3 k/uL (3.8-10.6)
[2024-04-11] MEDS: MAG HYDROX/AL HYDROX/SIMETH 30 ML, HYOSCYAMINE ELIXIR 10 ML, LIDOCAINE VISCOUS 2% 10 ML PO ONE (12:28)
[2024-04-11 12:41] LABS: ALT 17 U/L (4-34); AST 25 U/L (14-36); African American GFR (CKD) >90 (>60 ml/min/1.73 sqM); Albumin/Globulin Ratio 1.7; Alkaline Phosphatase 98 U/L (38-126); Anion Gap 4 mmol/L; Blood Urea Nitrogen 19 mg/dL (7-17); Carbon Dioxide 27 mmol/L (22-30); Chloride 104 mmol/L (98-107); Globulin 2.4 g/dL; Glucose 62 mg/dL (74-99); Magnesium 2.6 mg/dL (1.6-2.3); Non-African American GFR(CKD) >90 (>60 ml/min/1.73 sqM); Potassium 4.6 mmol/L (3.5-5.1); Sodium 135 mmol/L (137-145); Total Bilirubin 0.5 mg/dL (0.2-1.3); Total Protein 6.4 g/dL (6.3-8.2)
--- NOTE | 2024-04-11 13:50 | P.CRDCN ---
History of Present Illness Consult date: 04/11/24 Consult reason: chest pain History of present illness: The patient is a 64-year-old female who follows in the office with Dr. Xiong. The patient presented to the hospital with acute onset of chest discomfort. She states this was similar to what brought her to the hospital in the past. She had been sleeping and she awoke in the middle the night with a very sharp chest discomfort. She notified EMS, who found her hypertensive. After medi cations were given and her blood pressure came down, she states her sharp pain turned into more of a pressure. She states that discomfort has since resolved. The patient states she does have a history of EtOH abuse and typically remains abstinent from alcohol, however she did get an argument with her yesterday and she did consume approximately 1 pint of liquor. DIAGNOSTICS: EKG shows sinus mechanism without new ST or T wave abnormalities Chest x-ray shows no acute cardiopulmonary disease Lab data: WBC 12.3, hemoglobin 14.0, hematocrit 43.3, platelet 246, sodium 135, potassium 4.6, BUN 19, creatinine 0.65, AST 25, ALT 17, troponins negative x 3, BNP 266 REVIEW OF SYSTEMS: No fever or chills. No cough or expectoration. No diaphoresis. Patient denies headache, dizziness, blurred vision, double vision. Patient denies any stomach discomfort. No nausea, vomiting. No hematochezia. No hematemesis. Denies any black stools or blood in his stools. Denies dysuria or hematuria. No muscle weakness or numbness. PHYSICAL EXAMINATION: This is a 64-year-old female in no apparent distress at the time of my examination. HEENT: Head is atraumatic, normocephalic. Pupils are equal, round. There is no jugular venous distention. No carotid bruit is heard. CHEST EXAMINATION: Lungs are clear to auscultation. No chest wall tenderness is noted on palpation or with deep breathing. HEART EXAMINATION: Heart regular rate and rhythm. S1, S2 heard. No murmurs, gallops or rub. ABDOMEN: Soft, nontender. Bowel sounds are heard. No organomegaly noted. EXTREMITIES: 2+ peripheral pulses with no evidence of peripheral edema and no calf tenderness noted. NEUROLOGIC EXAMINATION: Patient is awake, alert and oriented x3. FINAL ASSESSMENT AND PLAN: Chest discomfort, acute coronary syndrome ruled out Uncontrolled hypertension History of EtOH abuse PLAN: Resume home medication regimen Patient is cleared to be discharged with follow-up with Dr. Xiong in 1 week I am dictating on behalf of Dr Mo Hebert's history/physical and assessment/plan. Past Medical History Past Medical History: Hearing Disorder / Deafness, Myocardial Infarction (OK) Additional Past Medical History / Comment(s): STATES WT LOSS OF 40 # OVER LAST 7 MONTHS, POOR APPETITE , FATIGUE., NODULE ON LUNG. , PARTIALLY DEAF RIGHT EAR., STATES 3 LOOSE TEETH ., STATES HX OF FALL & INJURED LEFT KNEE AND RIGHT WRIST (10/2017)-STATES LIMPING, & CANNOT USE RIGHT WRIST. Last Myocardial Infarction Date:: na History of Any Multi-Drug Resistant Organisms: None Reported Past Surgical History: Heart Catheterization With Stent Additional Past Surgical History / Comment(s): D & C Past Anesthesia/Blood Transfusion Reactions: No Reported Reaction Date of Last Stent Placement:: 2022 Past Psychological History: Anxiety, Depression Smoking Status: Current every day smoker Past Alcohol Use History: Heavy Past Drug Use History: Marijuana - Past Family History Mother Family Medical History: Blood Disorder Additional Family Medical History / Comment(s): PROTEIN C - DEFICIENCY. Daughter(s) Family Medical History: Blood Disorder Additional Family Medical History / Comment(s): UNKNOWN NAME OF BLOOD DISORDER. Medications and Allergies Home Medications Medication Instructions Recorded Confirmed Type Albuterol Sulfate [Ventolin HFA] 2 puff INHALATION RT-QID PRN 11/04/23 04/11/24 History Budesonide/Formoterol Fumarate 2 puff INHALATION RT-BID 11/04/23 04/11/24 History [Symbicort 160-4.5 Mcg Inhaler] carvediloL [Coreg] 3.125 mg PO DAILY PRN 12/05/23 04/11/24 History Allergies Allergy/AdvReac Type Severity Reaction Status Date / Time No Known Allergies Allergy Verified 04/11/24 10:43 Physical Exam Vitals: Vital Signs Temp Pulse Pulse Resp BP BP Pulse Ox 04/11/24 12:32 74 04/11/24 12:17 69 04/11/24 09:16 96 04/11/24 09:05 101 H 04/11/24 09:02 97 04/11/24 07:00 97.9 F 81 16 110/73 99 04/11/24 06:00 87 16 131/89 99 04/11/24 04:00 87 16 137/86 99 04/11/24 03:01 73 18 109/75 99 04/11/24 02:24 84 16 130/75 97 04/11/24 01:47 98.7 F 84 20 189/113 99 Intake and Output 04/10/24 04/11/24 04/11/24 22:59 06:59 14:59 Intake Total 118 Balance 118 Intake: Oral 118 Other: # Voids 1 Weight 55.792 kg 55.792 kg Results 04/11/24 11:26 04/11/24 11:26 Cardiac Enzymes 04/11/24 04/11/24 04/11/24 Range/Units 02:01 02:01 06:23 AST 34 (14-36) U/L Troponin I <0.012 <0.012 (0.000-0.034) ng/mL 04/11/24 04/11/24 Range/Units 09:31 11:26 AST 25 (14-36) U/L Troponin I <0.012 (0.000-0.034) ng/mL Coagulation 04/11/24 Range/Units 02:01 PT 10.3 (10.0-12.5) sec APTT 21.8 L (22.0-30.0) sec CBC 04/11/24 04/11/24 Range/Units 02:01 11:26 WBC 22.0 H 12.3 H (3.8-10.6) k/uL RBC 4.80 4.29 (3.80-5.40) m/uL Hgb 16.4 H 14.0 (11.4-16.0) gm/dL Hct 47.4 H 43.3 (34.0-46.0) % Plt Count 312 246 (150-450) k/uL Comprehensive Metabolic Panel 04/11/24 04/11/24 Range/Units 02:01 11:26 Sodium 140 135 L (137-145) mmol/L Potassium 4.7 4.6 (3.5-5.1) mmol/L Chloride 108 H 104 (98-107) mmol/L Carbon Dioxide 16 L 27 (22-30) mmol/L BUN 19 H 19 H (7-17) mg/dL Creatinine 0.60 0.65 (0.52-1.04) mg/dL Glucose 191 H 62 L (74-99) mg/dL Calcium 10.1 9.0 (8.4-10.2) mg/dL AST 34 25 (14-36) U/L ALT 23 17 (4-34) U/L Alkaline Phosphatase 120 98 (38-126) U/L Total Protein 7.9 6.4 (6.3-8.2) g/dL Albumin 4.9 4.0 (3.5-5.0) g/dL Current Medications Generic Name Dose Route Start Last Admin Trade Name Freq PRN Reason Stop Dose Admin Acetaminophen 650 mg 04/11/24 06:06 Acetaminophen Tab 325 Mg Tab PO Q6HR PRN Mild Pain or Fever > 100.5 Al Hydroxide/Mg Hydroxide 15 ml 04/11/24 06:06 Mag Hydrox/Al Hydrox/Simeth 30 Ml Cup PO Q6HR PRN Indigestion Albuterol Sulfate 2.5 mg 04/11/24 07:34 04/11/24 12:15 Albuterol Nebulized 2.5 Mg/3 Ml INHALATION 2.5 mg RT-Q4H PRN Administration Shortness Of Breath Amlodipine Besylate 5 mg 04/11/24 09:00 04/11/24 09:04 Amlodipine 5 Mg Tab PO 5 mg DAILY KEN Administration Aspirin 81 mg 04/11/24 09:00 04/11/24 09:04 Aspirin 81 Mg PO 81 mg DAILY KEN Administration Atorvastatin Calcium 40 mg 04/11/24 21:00 Atorvastatin 40 Mg Tab PO [facility] Budesonide/Formoterol Fumarate 2 puff 04/11/24 08:00 04/11/24 08:59 Symbicort 160-4.5 Mcg Inhaler INHALATION 2 puff RT-BID KEN Administration Calcium Carbonate/Glycine 1,000 mg 04/11/24 06:06 Calcium Carbonate 500 Mg Chewable PO Q4HR PRN Dyspepsia Carvedilol 3.125 mg 04/11/24 07:30 04/11/24 09:04 Carvedilol 3.125 Mg Tab PO 3.125 mg AC-BRKFST KEN Administration Carvedilol 6.25 mg 04/11/24 07:34 Carvedilol 6.25 Mg Tab PO BID PRN Chest Pain Enoxaparin Sodium 40 mg 04/11/24 09:00 04/11/24 09:04 Enoxaparin 40 Mg/0.4 Ml Syringe SQ 40 mg DAILY KEN Administration Famotidine 20 mg 04/11/24 09:00 04/11/24 09:04 Famotidine 20 Mg Tab PO 20 mg BID KEN Administration Naloxone HCl 0.2 mg 04/11/24 06:06 Naloxone 0.4 Mg/Ml 1 Ml Vial IV Q2M PRN Opioid Reversal Nicotine 1 patch 04/11/24 09:00 04/11/24 09:04 Nicotine 14mg/24hr Patch TRANSDERM 1 patch DAILY KEN Administration Nitroglycerin 0.4 mg 04/11/24 02:06 Nitroglycerin Sl Tabs 0.4 Mg Tab SUBLINGUAL Q5M PRN Chest Pain Pantoprazole Sodium 40 mg 04/11/24 07:45 04/11/24 09:06 Pantoprazole 40 Mg Tablet PO 40 mg AC-BRKFST KEN Administration Tramadol HCl 50 mg 04/11/24 06:06 Tramadol 50 Mg Tab PO Q6H PRN Moderate Pain (Scale 4 to 6) Intake and Output 04/10/24 04/11/24 04/11/24 22:59 06:59 14:59 Intake Total 118 Balance 118 Intake: Oral 118 Other: # Voids 1 Weight 55.792 kg 55.792 kg Patient Weight 04/12/24 06:59 Weight 55.792 kg 04/11/24 11:26 04/11/24 11:26
[2024-04-11 14:31] VITALS: BP 90/59; PULSE 80; TEMP 98.6
[2024-04-11 15:11] LABS: Glucose,Whole Blood 128 mg/dL (70-110)
--- NOTE | 2024-04-11 15:38 | P.DS ---
Providers Date of admission: 04/11/24 06:08 Expected date of discharge: 04/11/24 Attending physician: Singh De Los Santos MD Consults: 04/11/24 06:06 Consult Physician Routine Consulting Provider: Mo Hebert Consult Reason/Comments: chest pain Do you want consulting provider notified?: Yes, Notify in am Primary care physician: Rafa Lobato MD Hospital Course: Discharge Diagnosis: Chest pain, acute coronary event ruled out. Leukocytosis and polycythemia. Polycythemia resolved with repeat hemoglobin of 14.0 and leukocytosis significantly improved from initial 22 down to 12.3. COPD with continued nicotine dependence, not in acute exacerbation Hypertension Coronary artery disease Anxiety with depression History of alcohol abuse (states stopped drinking one month ago) Hypomagnesemia. Resolved. Hospital Course: Patient is a pleasant 64-year-old female with a past medical history of CAD, hypertension, lung nodule, anxiety and depression, previous alcohol use/abuse (states she quit drinking after her last relapse 1 month ago), and COPD with continued nicotine dependence and not home oxygen dependent. She presented to the emergency department with a chief complaint of chest pain. Patient reports intermittent chest pain over the past 2 days that was initially only lasting a few seconds at a time but has progressively worsened in intensity and duration. She reports awakening from sleep with a severe pressure to her midsternal chest accompanied by nausea, vomiting and mild diaphoresis. Patient reports she took her blood pressure and it was elevated at 230/100 so she took her 4 baby aspirin's and an extra dose of her Coreg but did not have improvement so she called EMS for transport to the hospital. Patient denies any other complaints including fevers, chills, headache, lightheadedness, dizziness, palpitations, shortness of breath, cough or congestion, abdominal pain or discomfort, changes in urinary or bowel function, or having any numbness/tingling/weakness/swelling in her extremities. Upon arrival to our facility, patient underwent evaluation in the emergency department. Vital signs upon arrival show blood pressure 189/113, heart rate 84, respiratory rate 20, temp 98.7 F, and SpO2 of 99% on 2 L. EKG was completed showing sinus mechanism at 70 bpm and no noted T wave or ST abnormalities showing no signs of acute ischemia upon personal review and interpretation. Chest x-ray completed consistent with chronic bronchitis and pulmonary emphysema with hyperinflation of the lungs and reports of bilateral bronchial wall thickening, but negative for acute cardiopulmonary process showing no pleural effusion or infiltrate. Labs were completed and reviewed. CBC showing leukocytosis with a WBC count of 22.0 along with elevated hemoglobin of 16.4. Coagulation profile showing low PTT of 21.8 otherwise normal with normal D-dimer of 0.46. BMP showing high anion gap metabolic acidosis with chloride of 108, bicarb of 16, and anion gap of 16. BUN slightly elevated at 19. Blood glucose 191. Magnesium was low at 1.5. Liver profile unremarkable. Troponin was negative at less than 0.012 and proBNP is 266. Patient admitted under our services with consultation to cardiology. Troponins trended all resulting negative at less than 0.012 x 3 draws. Patient evaluated by cardiology stating patient to resume home medication regimen with no changes at this time and to follow-up with Dr. Xiong in 1 week clearing patient from cardiac perspective. Patient medically stable for discharge at this time. Patient to follow-up outpatient with PCP in 1 to 2 days and with phlebotomist supervisor/instructor in 1 week. Physical exam: Vital signs reviewed and stable. Thin and frail build. General: Nontoxic, no distress and appears stated age. Derm: Skin warm and dry, normal coloration for ethnicity. Head: Atraumatic, normocephalic and symmetric. Eyes: EOMs intact, no lid lag, and anicteric sclera Mouth: no lip lesions, mucus membranes moist Cardiovascular: regular rate and rhythm with normal S1S2, no murmur, positive posterior tibial pulses bilaterally, and cap refill < 2 seconds. Lungs: Respirations even, regular, and unlabored on 2 L supplemental O2 via nasal cannula. Lungs essentially clear but did have soft diffuse expiratory wheezes in upper roy.. Abdominal: soft, nontender to palpation, no guarding, no appreciable organomegaly Ext: ROM intact. No gross muscle atrophy, no edema, no contractures Neuro: Speech clear, face symmetrical and CN II-XII grossly intact with no noted focal neuro deficits Psych: Alert and oriented to person, place, time, and situation. Appropriate and pleasant affect. A total of 33 minutes of time were spent preparing this complex discharge summary. Pt was discharged on 04/11/2024 at 3:29 PM. Patient was seen independently by Nurse Practitioner. This document was prepared using [employer] dictation software. Please allow for errors in bill hiker while rare they do occur. I reviewed the documentation as provided by the PADDY above, who is the original author of this note. I agree with the documented assessment and plan, with the following changes: none Patient Condition at Discharge: Stable Plan - Discharge Summary Discharge Rx Participant: Yes New Discharge Prescriptions: Continue Budesonide/Formoterol Fumarate [Symbicort 160-4.5 Mcg Inhaler] 2 puff INHALATION RT-BID Albuterol Sulfate [Ventolin HFA] 2 puff INHALATION RT-QID PRN PRN Reason: Shortness Of Breath carvediloL [Coreg] 3.125 mg PO DAILY PRN PRN Reason: Chest Pain Discharge Medication List Albuterol Sulfate [Ventolin HFA] 2 puff INHALATION RT-QID PRN 11/04/23 [History] Budesonide/Formoterol Fumarate [Symbicort 160-4.5 Mcg Inhaler] 2 puff INHALATION RT-BID 11/04/23 [History] carvediloL [Coreg] 3.125 mg PO DAILY PRN 12/05/23 [History] Follow up Appointment(s)/Referral(s): Tony Xiong DO [STAFF PHYSICIAN] - 1 Week Rafa Lobato MD [Primary Care Provider] - 1-2 days Activity/Diet/Wound Care/Special Instructions: Activity: As tolerated. Take breaks as needed. Diet: Heart healthy and carb consistent diet. Avoid salts, or foods with hidden salts such as canned or boxed foods and frozen dinners. Extra salt makes your heart work harder and traps the fluid in your body for longer. Special Instructions: Take all of your medications as directed and remember to keep all of your doctor's appointments and follow-up as needed. Thank you for allowing us to participate in your care, it was truly a pleasure having you for our patient!!! . Discharge Disposition: HOME SELF-CARE
[2024-04-11] MEDS ORDERED: ATORVASTATIN 40 MG TAB PO SCH (21:00)
== END 2024-04-11 17:55 | disposition home or self-care (01) ==
LOC: EC 01:46 → 6NMEDSUR 06:08
PROVIDERS: ADMIT Internal Medicine; ATTEND Internal Medicine
DX: R07.89 Other chest pain (principal); E87.20 Acidosis, unspecified; J43.9 Emphysema, unspecified; D75.1 Secondary polycythemia; E83.42 Hypomagnesemia; D72.829 Elevated white blood cell count, unspecified; J44.9 Chronic obstructive pulmonary disease, unspecified; I10 Essential (primary) hypertension; I25.10 Atherosclerotic heart disease of native coronary artery without angina pectoris; R91.1 Solitary pulmonary nodule; F32.A Depression, unspecified; F10.10 Alcohol abuse, uncomplicated; F41.9 Anxiety disorder, unspecified; F17.200 Nicotine dependence, unspecified, uncomplicated; Z79.51 Long term (current) use of inhaled steroids; Z79.82 Long term (current) use of aspirin; Z79.899 Other long term (current) drug therapy; Z71.6 Tobacco abuse counseling
CPT/HCPCS: 36415; 71046; 80053; 83735; 83880; 84484; 85025; 85027; 85379; 85610; 85730; 93005; 94640; 94760; 96365; 96366; 96367; 96372; 96375; 99285